=== PATIENT | male | born 1955 | race Caucasian/White ===

== ENCOUNTER 2019-04-25 17:04 | Inpatient (IN) ==
[2019-04-25] MEDS ORDERED: NITROGLYCERIN SL 0.4 MG/TAB TAB SL PRN ×2 (17:18→22:12)
[2019-04-25 17:29] LABS: Basophils # (auto) 0.03 K/uL (0-0.2); Basophils % (auto) 0.3 %; Eosinophils # (auto) 0.33 K/uL (0-0.5); Eosinophils % (auto) 3.7 %; Immature Granulocytes # (auto) 0.03 K/uL (0.00-0.02); Immature Granulocytes % (auto) 0.3 %; Lymphocytes # (auto) 2.09 K/uL (1.2-3.4); Lymphocytes % (auto) 23.3 %; Mean Corpuscular Hgb Conc 34.1 g/dL (32-36); Mean Corpuscular Volume 90.7 fL (80-100); Mean Platelet Volume 11.3 fL (7.4-10.4); Monocytes # (auto) 0.94 K/uL (0.11-0.59); Monocytes % (auto) 10.5 %; Neutrophils # (auto) 5.54 K/uL (1.4-6.5); Neutrophils % (auto) 61.9 %; Platelet Count 292 K/uL (130-400); RDW Coefficient of Variation 13.9 % (11.5-14.5); RDW Standard Deviation 46.1 fL (36.4-46.3); Red Blood Count 4.52 M/uL (4.7-6.1); White Blood Count 8.96 K/uL (4.8-10.8)
[2019-04-25 18:02] LABS: Alanine Aminotransferase 36 U/L (12-78); Albumin Globulin Ratio 1.1 (0.9-2); Alkaline Phosphatase 87 U/L (45-117); BUN Creatinine Ratio 9.8 (10-20); Bilirubin,Total 0.5 mg/dl (0.2-1); Blood Urea Nitrogen 13 mg/dl (7-18); Calcium 9.6 mg/dl (8.5-10.1); Carbon Dioxide 25 mmol/L (21-32); Chloride 106 mmol/L (98-107); Creatinine Clr Calc Pharmacy 70.6 ml/min; Est GFR (Non-African American) 57.8; Globulin 3.5 gm/dl (2.5-4.0); Glucose 106 mg/dl (70-99); Lipase 205 U/L (73-393); Total Protein 7.5 gm/dl (6.4-8.2); Troponin I < 0.015 ng/ml (0-0.045)
[2019-04-25 18:07] LABS: Potassium 4.4 mmol/L (3.5-5.1); Sodium 142 mmol/L (136-145)
[2019-04-25 18:13] LABS: Aspartate Aminotransferase 34 U/L (15-37)
--- NOTE | 2019-04-25 18:21 | XRay Report ---
SINGLE VIEW CHEST CLINICAL HISTORY: Atypical chest pain. FINDINGS: 2 AP, portable, upright chest radiographs are obtained. No prior studies are available for comparison at the time of dictation. The examination is degraded by portable technique, apical positi oning, and patient rotation. The heart is enlarged. The pulmonary vasculature is noncongested. There is a layering left pleural effusion with left basilar consolidation. The lungs are otherwise clear. N o pneumothorax is seen. The skeletal structures are osteopenic. The bony thorax is grossly intact. IMPRESSION: 1. Cardiomegaly without radiographic evidence of congestive failure. 2. Left pleural effusion with left basilar consolidation. Electronically signed by: Wesley Lee M.D. 04/25/2019 6:20 PM
[2019-04-25 20:01] LABS: Troponin I 0.211 ng/ml (0-0.045)
[2019-04-25] MEDS ORDERED: Heparin IV Standard *NO* Bolus IV ONE (20:03)
[2019-04-25] MEDS ORDERED: HEPARIN SODIUM/DEXTROSE 25,000 UNITS/500 ML BAG IV SCH (20:15)
[2019-04-25] MEDS ORDERED: HEPARIN SOD 5,000 UNIT/0.5 ML VIAL ONE (20:36)
[2019-04-25] MEDS: HEPARIN SODIUM/DEXTROSE 25,000 UNITS/500 ML BAG IV SCH (20:42)
[2019-04-25 20:45] LABS: Partial Thromboplastin Ratio 0.9; Partial Thromboplastin Time 23.1 Seconds (21.0-31.0); Prothrombin Time 10.4 Seconds (9.0-12.0)
[2019-04-25 20:48] LABS: Magnesium 2.2 mg/dl (1.8-2.4)
--- NOTE | 2019-04-25 21:14 | History & Physical Report ---
Date of Service April 25, 2019 Assessment & Plan (1) Non-ST elevation PA (NSTEMI): hx CAD status post stent (2001, 2012) Inability to take home Plavix the last month due to insurance concerns. hypertension, stable Patient does not recall being on any medications although outpatient [facility] records documents indicate patient being on Atenolol and Prinivil in the past. hyperlipidemia on statin Rx history PUD, stable past tobacco abuse PCU Aspirin, continue IV heparin started at the ER Hold Plavix until patient seen by Cardiology. Initiate beta-anastacia Follow troponin, TTE RE ACS Obtain records from [facility] DVT prophylaxis IV heparin Full code History of Present Illness Chief Complaint: Chest pain Primary Care Provider: Dr. Luis Ashton History obtained from patient, family, and records. Medical history significant for CAD status post stenting (2000, 2012), hypertension, hyperlipidemia, history PUD, past tobacco abuse. 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 No radiation, no S OB. Some nausea. Unable to take Plavix and cholesterol prescription the last month due to insurance issues. Patient however taking aspirin daily. No relief of chest pain with nitroglycerin intake at home. Subsequent relief with aspirin administration by EMS. Medical History as above Surgical History : Tonsillectomy Family History : Heart disease Personal/Social history : Past tobacco abuse, no EtOH intake, retired [employer] employee Allergies Allergy/AdvReac Type Severity Reaction Status Date / Time morphine AdvReac Severe mood Verified 04/25/19 18:48 change, makes mean lisinopril AdvReac Intermediate Cough Verified 04/25/19 22:19 UNKNOWN BP PILL AdvReac Severe Cough Uncoded 04/25/19 22:19 Home Medications Home Medications Medication Instructions Recorded Confirmed Type levothyroxine 25 mcg PO DAILY 04/25/19 04/25/19 History Past Med/Surg History Medical History No significant past medical history Social History Preferred Language: Estonian Communication Ability: Effective 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 Beliefs That Will Affect Care: None Current Living Situation: Significant Other Other Information That Helps Us Care for You: No Feels Safe at Home: Yes Safety Concerns: Feels Safe At This Time Smoking Status: Former smoker Do You Dip or Chew Tobacco: No ; Hx Alcohol Use: Yes Alcohol type: beer and wine Hx Substance Use: No Review of Systems Review of Systems: As per HPI, all 10 systems reviewed, all other ROS negative Physical Exam Physical Exam: GENERAL: Comfortable, slightly anxious, obese, no respiratory distress SKIN: Normal color, warm HEENT: Alopecia, Archer palpebral conjunctivae, no ptosis, moist buccal mucosa NECK : Supple, no tenderness CHEST : CTA, no tenderness HEART : RRR, no obvious murmurs ABDOMEN: Some distention, nontender EXTREMITIES : No LE swelling/tenderness, no other conspicuous deformities noted NEUROLOGIC : Coherent, no facial asymmetry, no other gross focality Results & Data Vital Signs (Past 12 Hours) Vital Signs Temp Pulse Pulse Resp BP BP Pulse Ox 04/25/19 20:50 62 16 137/85 96 04/25/19 18:54 61 16 125/83 97 04/25/19 17:22 95 04/25/19 17:14 37 C 65 16 131/82 95 Laboratory Results Laboratory Results WBC 8.96 K/uL (4.8-10.8) 04/25/19 17:08 RBC 4.52 M/uL (4.7-6.1) L 04/25/19 17:08 Hgb 14.0 g/dL (14.0-18.0) 04/25/19 17:08 Hct 41.0 % (42-52) L 04/25/19 17:08 MCV 90.7 fL (80-100) 04/25/19 17:08 MCH 31.0 pg (25-34) 04/25/19 17:08 MCHC 34.1 g/dL (32-36) 04/25/19 17:08 RDW Std Deviation 46.1 fL (36.4-46.3) 04/25/19 17:08 RDW Coeff of Nitish 13.9 % (11.5-14.5) 04/25/19 17:08 Plt Count 292 K/uL (130-400) 04/25/19 17:08 MPV 11.3 fL (7.4-10.4) H 04/25/19 17:08 Immature Gran % (Auto) 0.3 % 04/25/19 17:08 Neut % (Auto) 61.9 % 04/25/19 17:08 Lymph % (Auto) 23.3 % 04/25/19 17:08 Christian % (Auto) 10.5 % 04/25/19 17:08 Eos % (Auto) 3.7 % 04/25/19 17:08 Baso % (Auto) 0.3 % 04/25/19 17:08 Immature Gran # (Auto) 0.03 K/uL (0.00-0.02) H 04/25/19 17:08 Neut # (Auto) 5.54 K/uL (1.4-6.5) 04/25/19 17:08 Lymph # (Auto) 2.09 K/uL (1.2-3.4) 04/25/19 17:08 Christian # (Auto) 0.94 K/uL (0.11-0.59) H 04/25/19 17:08 Eos # (Auto) 0.33 K/uL (0-0.5) 04/25/19 17:08 Baso # (Auto) 0.03 K/uL (0-0.2) 04/25/19 17:08 PT 10.4 Seconds (9.0-12.0) 04/25/19 20:18 INR 1.0 (0.9-1.1) 04/25/19 20:18 APTT 23.1 Seconds (21.0-31.0) 04/25/19 20:18 PTT Ratio 0.9 04/25/19 20:18 Sodium 142 mmol/L (136-145) 04/25/19 17:08 Potassium 4.4 mmol/L (3.5-5.1) 04/25/19 17:08 Chloride 106 mmol/L (98-107) 04/25/19 17:08 Carbon Dioxide 25 mmol/L (21-32) 04/25/19 17:08 Anion Gap 10.0 (3-11) 04/25/19 17:08 BUN 13 mg/dl (7-18) 04/25/19 17:08 Creatinine 1.29 mg/dl (0.6-1.4) 04/25/19 17:08 Est Cr Clr Drug Dosing 70.6 ml/min 04/25/19 17:08 Est GFR ( Amer) 67.0 04/25/19 17:08 Est GFR (Non-Af Amer) 57.8 04/25/19 17:08 BUN/Creatinine Ratio 9.8 (10-20) L 04/25/19 17:08 Glucose 106 mg/dl (70-99) H 04/25/19 17:08 Calcium 9.6 mg/dl (8.5-10.1) 04/25/19 17:08 Magnesium 2.2 mg/dl (1.8-2.4) 04/25/19 19:03 Total Bilirubin 0.5 mg/dl (0.2-1) 04/25/19 17:08 AST 34 U/L (15-37) 04/25/19 17:08 ALT 36 U/L (12-78) 04/25/19 17:08 Alkaline Phosphatase 87 U/L (45-117) 04/25/19 17:08 Troponin I 0.211 ng/ml (0-0.045) H* 04/25/19 19:03 Total Protein 7.5 gm/dl (6.4-8.2) 04/25/19 17:08 Albumin 4.0 gm/dl (3.4-5.0) 04/25/19 17:08 Globulin 3.5 gm/dl (2.5-4.0) 04/25/19 17:08 Albumin/Globulin Ratio 1.1 (0.9-2) 04/25/19 17:08 Lipase 205 U/L (73-393) 04/25/19 17:08 Diagnostic Findings Chest x-ray : 1. Cardiomegaly without radiographic evidence of congestive failure. 2. Left pleural effusion with left basilar consolidation. EKG as per my interpretation :Rate 65, NSR, normal axis, T wave inversion flattening inferior leads
[2019-04-25] MEDS: METOPROLOL TARTRATE 25 MG TAB PO SCH (21:23)
[2019-04-25] MEDS ORDERED: ACETAMINOPHEN 325 MG TAB PO PRN (22:12)
[2019-04-25] MEDS ORDERED: LORazepam 0.25 MG/0.5 ML VIAL IV PRN (22:12)
[2019-04-25] MEDS ORDERED: HYDROmorphone INJ 0.5 MG/0.5 ML SYR IV PRN (22:12)
[2019-04-25] MEDS ORDERED: PROMETHAZINE HCL 12.5 MG in SODIUM CHLORIDE 0.9% 50 ML IV PRN (22:12)
[2019-04-25 22:43] LABS: Thyroid Stimulating Hormone 6.32 uIu/ml (0.300-4.500)
--- NOTE | 2019-04-25 23:14 | Emergency Department Note ---
Entered by Mone Mortensen acting as a scribe for Ludwig Rosas MD History of Present Illness General Chief complaint: Chest Pain Time Seen by Provider: 04/25/19 17:08 Source: patient and family Mode of arrival: EMS History of Present Illness Provider complaint: chest pain Onset (ago): hour(s) 3 Location: chest Radiation: non-radiation Pain Consistency: + constant Relieved By: + medication (aspirin) Associated symptoms: + nausea/vomiting (+nausea, -vomiting); no cough and no fever/chills Treatments prior to arrival: aspirin and other (NTG) The patient is a 64 male w/ No significant PMHx who presents to the ED w/ CC of chest pain beginning 3 hours ago. 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 He reports that this was constant pain that was located in the center of his chest. He states that the pain was non-radiating. He states that he took nitroglycerine and it did not alleviate his symptoms. He states that he was given baby aspirin on arrival, which resolved his pain. The patient denies any cough or fever. He states that he had nausea, but denies any vomiting. He denies any recent trauma to his chest. He states that he has a history of stents in place. He reports that his takes Plavix. He denies any history of blood clots. The patients daughter mentions that the patient was seen at [facility] last week and they reported that his heart was enlarged on the left side. 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 and A total of 10 systems reviewed and were otherwise negative Physical Exam Vital Signs Vital Signs - 24 hr 04/25/19 17:14 04/25/19 17:22 04/25/19 18:54 Temperature 37 C Temperature Source Oral Sepsis Recent Fever Within 48 Hours No Sepsis New/Unexplained Change in Mental Status No Sepsis Action Taken by Nursing No Action Required Pulse Rate 65 Pulse Rate [Apical] 61 Pulse Rhythm [Apical] Pulse Strength [Apical] Respiratory Rate 16 16 Respiratory Effort / Characteristics Respiratory Depth Blood Pressure 131/82 Blood Pressure [Left Arm] 125/83 Blood Pressure Mean 98 Blood Pressure Mean [Left Arm] 97 Pulse Oximetry 95 95 97 Oxygen Delivery Method Room Air Room Air Room Air 04/25/19 20:50 Temperature Temperature Source Sepsis Recent Fever Within 48 Hours Sepsis New/Unexplained Change in Mental Status Sepsis Action Taken by Nursing Pulse Rate Pulse Rate [Apical] 62 Pulse Rhythm [Apical] Regular Pulse Strength [Apical] Normal Respiratory Rate 16 Respiratory Effort / Characteristics Non-Labored Spontaneous Respiratory Depth Normal Blood Pressure Blood Pressure [Left Arm] 137/85 Blood Pressure Mean Blood Pressure Mean [Left Arm] 102 Pulse Oximetry 96 Oxygen Delivery Method Room Air GENERAL: Wearing glasses, well appearing, well nourished, NAD, non-toxic. EYE EXAM: Normal conjunctiva. PERRL, no anisocoria and EOM's grossly intact w/o pain. OROPHARYNX: Moist mucous membranes. Grossly normal dentition. NECK: Supple, no nuchal rigidity, no adenopathy, non-tender. No signs of meningismus. LUNGS: Clear to auscultation. Normal chest wall mechanics. HEART: NSR, no MRG. ABDOMEN: Abdomen soft, non-tender, normo-active bowel sounds, no masses, no rebound or guarding. BACK: No CVA TTP. SKIN: No rashes and no bruising. UPPER EXTREMITIES: Upper extremities are grossly normal. LOWER EXTREMITIES: Negative Catia's sign. No pitting edema. No calf pain. NEURO EXAM: A&O x3, cranial nerves II-XII grossly intact, normal speech, moves all 4 extremities on command w/o issue. Course 1713: The patient was evaluated in room A12B, and a complete history and physical examination were performed. 2005: [facility] He will evaluate the patient for further management. Administered Medications Heparin Sodium/Dextrose (Heparin Sodium/Dextrose) 25,000 units in 500 mls @ 32 mls/hr IV .[id number] YANI; Protocol Stop: 05/25/19 20:14 Last Admin: 04/25/19 20:42 Dose: 1,550 units/hr, 31 mls/hr Documented by: [id number] Cosigned by: [id number] Metoprolol Tartrate (Lopressor) 12.5 mg PO BID YANI Stop: 05/25/19 20:14 Last Admin: 04/25/19 21:23 Dose: 12.5 mg Documented by: [id number] Discontinued Medications Heparin Sodium (Porcine) (Heparin Sodium (Porcine)) Confirm Administered Dose 5,000 units .ROUTE .[facility] Stop: 04/25/19 20:37 Last Admin: 04/25/19 20:42 Dose: 5,000 units Documented by: [id number] Cosigned by: [id number] Heparin Sodium/Dextrose () 1 ea IV ONE ONE; Protocol Stop: 04/25/19 20:04 Last Admin: 04/25/19 20:41 Dose: Not Given Documented by: [id number] Heparin Sodium/Dextrose () 1 ea IV NOW STA; Protocol Stop: 04/25/19 20:12 Last Admin: 04/25/19 20:42 Dose: 1 ea Documented by: [id number] Medical Decision Making Differential Diagnosis Etiologies such as shingles, musculoskeletal pain, pericarditis, myocarditis, cardiac ischemia, pericardial tamponade, pneumonia, pneumothorax, pleural effusion, hemothorax, pleurisy, aortic pathology, pulmonary embolism, intra- abdominal process, as well as others were considered. Medical Records Attestation: I reviewed the patient's medical records. Home Medications Current Medication List: was personally reviewed by me Laboratory Data Attestation: I reviewed the patient's lab results. Result diagrams: 04/25/19 17:08 04/25/19 17:08 Lab Results 04/25/19 04/25/19 04/25/19 Range/Units 17:08 17:08 19:03 WBC 8.96 (4.8-10.8) K/uL RBC 4.52 L (4.7-6.1) M/uL Hgb 14.0 (14.0-18.0) g/dL Hct 41.0 L (42-52) % MCV 90.7 (80-100) fL MCH 31.0 (25-34) pg MCHC 34.1 (32-36) g/dL RDW Std Deviation 46.1 (36.4-46.3) fL RDW Coeff of Nitish 13.9 (11.5-14.5) % Plt Count 292 (130-400) K/uL MPV 11.3 H (7.4-10.4) fL Immature Gran % (Auto) 0.3 % Neut % (Auto) 61.9 % Lymph % (Auto) 23.3 % [place] % (Auto) 10.5 % Eos % (Auto) 3.7 % Baso % (Auto) 0.3 % Immature Gran # (Auto) 0.03 H (0.00-0.02) K/uL Neut # (Auto) 5.54 (1.4-6.5) K/uL Lymph # (Auto) 2.09 (1.2-3.4) K/uL [place] # (Auto) 0.94 H (0.11-0.59) K/uL Eos # (Auto) 0.33 (0-0.5) K/uL Baso # (Auto) 0.03 (0-0.2) K/uL PT (9.0-12.0) Seconds INR (0.9-1.1) APTT (21.0-31.0) Seconds PTT Ratio Sodium 142 (136-145) mmol/L Potassium 4.4 (3.5-5.1) mmol/L Chloride 106 (98-107) mmol/L Carbon Dioxide 25 (21-32) mmol/L Anion Gap 10.0 (3-11) BUN 13 (7-18) mg/dl Creatinine 1.29 (0.6-1.4) mg/dl Est Cr Clr Drug Dosing 70.6 ml/min Est GFR ( Amer) 67.0 Est GFR (Non-Af Amer) 57.8 BUN/Creatinine Ratio 9.8 L (10-20) Glucose 106 H (70-99) mg/dl Calcium 9.6 (8.5-10.1) mg/dl Magnesium 2.2 (1.8-2.4) mg/dl Total Bilirubin 0.5 (0.2-1) mg/dl AST 34 (15-37) U/L ALT 36 (12-78) U/L Alkaline Phosphatase 87 (45-117) U/L Troponin I < 0.015 0.211 H* (0-0.045) ng/ml Total Protein 7.5 (6.4-8.2) gm/dl Albumin 4.0 (3.4-5.0) gm/dl Globulin 3.5 (2.5-4.0) gm/dl Albumin/Globulin Ratio 1.1 (0.9-2) Lipase 205 (73-393) U/L TSH 6.320 H (0.300-4.500) uIu/ml 04/25/19 Range/Units 20:18 WBC (4.8-10.8) K/uL RBC (4.7-6.1) M/uL Hgb (14.0-18.0) g/dL Hct (42-52) % MCV (80-100) fL MCH (25-34) pg MCHC (32-36) g/dL RDW Std Deviation (36.4-46.3) fL RDW Coeff of Nitish (11.5-14.5) % Plt Count (130-400) K/uL MPV (7.4-10.4) fL Immature Gran % (Auto) % Neut % (Auto) % Lymph % (Auto) % [place] % (Auto) % Eos % (Auto) % Baso % (Auto) % Immature Gran # (Auto) (0.00-0.02) K/uL Neut # (Auto) (1.4-6.5) K/uL Lymph # (Auto) (1.2-3.4) K/uL [place] # (Auto) (0.11-0.59) K/uL Eos # (Auto) (0-0.5) K/uL Baso # (Auto) (0-0.2) K/uL PT 10.4 (9.0-12.0) Seconds INR 1.0 (0.9-1.1) APTT 23.1 (21.0-31.0) Seconds PTT Ratio 0.9 Sodium (136-145) mmol/L Potassium (3.5-5.1) mmol/L Chloride (98-107) mmol/L Carbon Dioxide (21-32) mmol/L Anion Gap (3-11) BUN (7-18) mg/dl Creatinine (0.6-1.4) mg/dl Est Cr Clr Drug Dosing ml/min Est GFR ( Amer) Est GFR (Non-Af Amer) BUN/Creatinine Ratio (10-20) Glucose (70-99) mg/dl Calcium (8.5-10.1) mg/dl Magnesium (1.8-2.4) mg/dl Total Bilirubin (0.2-1) mg/dl AST (15-37) U/L ALT (12-78) U/L Alkaline Phosphatase (45-117) U/L Troponin I (0-0.045) ng/ml Total Protein (6.4-8.2) gm/dl Albumin (3.4-5.0) gm/dl Globulin (2.5-4.0) gm/dl Albumin/Globulin Ratio (0.9-2) Lipase (73-393) U/L TSH (0.300-4.500) uIu/ml Imaging Data Radiologist's Impression: Radiology results as stated below per my review and the radiologist's interpretation: SINGLE VIEW CHEST CLINICAL HISTORY: Atypical chest pain. FINDINGS: 2 AP, portable, upright chest radiographs are obtained. No prior studies are available for comparison at the time of dictation. The examination i s degraded by portable technique, apical positioning, and patient rotation. The heart is enlarged. The pulmonary vasculature is noncongested. There is a layering left pleural effusion with left basilar consolidation. The lungs are otherwise clear. No pneumothorax is seen. The skeletal structures are osteopenic. The bony thorax is grossly intact. IMPRESSION: 1. Cardiomegaly without radiographic evidence of congestive failure. 2. Left pleural effusion with left basilar consolidation. Electronically signed by: Wesley Lee M.D. 04/25/2019 6:20 PM ECG Data Attestation: I personally reviewed and interpreted this ECG as follows: Indication: chest pain Rate (beats per minute): 67 Rhythm: normal sinus Findings: + other (normal interval and axis) and + Q waves (lead 3 with TWI ) Blood Pressure Blood Pressure Findings: Normal blood pressure Blood Pressure Disposition: did not require urgent referral MDM Narrative Patient was seen and evaluated the bedside. Patient does have a known history of NV status post multiple cardiac stents and does follow in [facility]. The patient has not been taking his dual antiplatelet therapy for approximately 1 month as the patient does not have medication coverage. The patient did complain of some substernal chest discomfort with some associated nausea. The patient was unable to say whether not it was exertional. The patient did a blo od complete along with an EKG troponin chest x-ray. Symptoms began around 230 pm. Patient's EKG does not show any evidence of acute ischemia. No prior to compare to. Patient does have a Q wave and T WI lead III but not in contiguous leads. Patient's initial troponin negative. The patient did have a repeat troponin and the patient subsequently was shown to have an elevated troponin. Observation: Patient has PMX of CAD s/p stents . Observation began at 1713 and was necessary in order to monitor, reassess and mitigate the risk of the patient, ensure their relative safety, and potentially avoid an admission. Upon re-evaluation, observation revealed that the patient could not be safely discharged at this time after repeat troponin was elevated at 1903. Patient was chest pain free, heparin ordered. Patient was chest pain-free heparin was ordered. The patient already received full dose aspirin had no further chest pain. Given the lack of active chest pain or EKG changes medical management at this time I did discuss with the patient that if he does develop worsening chest pain he should inform someone for repeat EKG. I did speak with the on-call hospitalist who agreed to further evaluate treat the patient. Patient was admitted to the medicine service. Impression & Plan Non-ST elevation NV (NSTEMI), Chest pain Critical Care Time Critical Care Time: Yes Total Critical Care Time: 45 I have personally spent 45 minutes of critical care time in the direct management of this patient. This includes bedside care, interpretation of diagnostic studies, and testing, discussion with consultants, patient, and family members, and other required patient management activities. This 45 minutes is in excess of all separately billable procedures. Discharge Plan Visit Data *Final* Discharge Date/Time: 04/25/19 21:40 Chief Complaint: Chest Pain ED Provider: Luwdig Rosas Discharge Problem: Non-ST elevation NV (NSTEMI), Chest pain Patient Disposition: Admitted As Inpatient Discharge Instructions Interventions: ED Discharge Assessment Last Done: 04/25/19 21:40 Discharge Problem: Chest pain Qualifiers: Chest pain type: unspecified Qualified Code(s): R07.9 - Chest pain, unspecified The scribe's documentation has been prepared under my direction and personally reviewed by me in its entirety. I confirm that the note above accurately reflects all work, treatment, procedures, and medical decision making performed by me.
[2019-04-26] MEDS ORDERED: SODIUM CHLORIDE 0.45 % 1,000 ML IV SCH
[2019-04-26 03:22] LABS: Basophils # (auto) 0.04 K/uL (0-0.2); Basophils % (auto) 0.5 %; Eosinophils # (auto) 0.35 K/uL (0-0.5); Eosinophils % (auto) 4.5 %; Hematocrit (blood only) 39.4 % (42-52); Hemoglobin 13.4 g/dL (14.0-18.0); Immature Granulocytes # (auto) 0.03 K/uL (0.00-0.02); Immature Granulocytes % (auto) 0.4 %; Lymphocytes # (auto) 3.21 K/uL (1.2-3.4); Lymphocytes % (auto) 40.9 %; Mean Corpuscular Hemoglobin 31.5 pg (25-34); Mean Corpuscular Volume 92.7 fL (80-100); Mean Platelet Volume 10.8 fL (7.4-10.4); Monocytes # (auto) 0.95 K/uL (0.11-0.59); Monocytes % (auto) 12.1 %; Neutrophils # (auto) 3.26 K/uL (1.4-6.5); Neutrophils % (auto) 41.6 %; Platelet Count 246 K/uL (130-400); Red Blood Count 4.25 M/uL (4.7-6.1); White Blood Count 7.84 K/uL (4.8-10.8)
[2019-04-26 03:31] LABS: Partial Thromboplastin Time 26.3 Seconds (21.0-31.0)
[2019-04-26 03:39] LABS: BUN Creatinine Ratio 12.2 (10-20); Calcium 9.1 mg/dl (8.5-10.1); Creatinine Clr Calc Pharmacy 79.5 ml/min; Est GFR (African American) 76.2; Est GFR (Non-African American) 65.7; Potassium 3.9 mmol/L (3.5-5.1)
[2019-04-26 03:44] LABS: Troponin I 1.38 ng/ml (0-0.045)
[2019-04-26] MEDS ORDERED: HEPARIN IV BOLUS 7,000 UNITS in SYRINGE 0 ML IV ONE (04:00)
[2019-04-26 04:31] LABS: T4 Free Thyroxine 0.76 ng/dl (0.8-1.6)
[2019-04-26] MEDS ORDERED: LEVOTHYROXINE SODIUM 25 MCG TABLET PO SCH (06:30)
[2019-04-26] MEDS ORDERED: PERFLUTREN LIPID MICROSPHERE (DEFINITY) IV ONE (07:14)
[2019-04-26] MEDS ORDERED: ATORVASTATIN 40 MG TAB PO SCH (09:00)
[2019-04-26] MEDS ORDERED: ASPIRIN 325 MG ECTAB PO SCH (09:00)
--- NOTE | 2019-04-26 09:54 | Cardiology Consultation ---
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 He is agreeable. Continue intravenous heparin, aspirin, and statin therapy. Patient was not prescribed beta-anastacia therapy due to resting sinus bradycardia. He is currently pain-free. Further recommendations pending results of cardiac catheterization. History of Present Illness Reason for Consultation: NSTEMI Requesting Physician: Dr. Anderson Attending Physician: Alexis Anderson MD History of Present Illness 64-year-old patient presents emergency department with episode of substernal chest pain. Describes pain similar to prior myocardial infarction occurring in 1999. Discomfort lasted for nearly 30 minutes. He took 2 sublingual nitroglycerin without relief. EMS was summoned and he received 4 baby aspirin in route. Pain-free upon arrival to the emergency department. Intravenous heparin initiated. Resting 2D transthoracic echocardiogram demonstrates old inferior posterior infarction with preserved LV systolic function. Patient currently pain-free. Denies orthopnea, PND, lower extremity edema. No palpitations, lightheadedness, dizziness, syncope, or near syncope. Admits to insurance problems leading to noncompliance with medications over the past 4 weeks. Typically take aspirin, Plavix, statin therapy on a daily basis. Allergies Allergy/AdvReac Type Severity Reaction Status Date / Time morphine AdvReac Severe mood Verified 04/25/19 18:48 change, makes mean lisinopril AdvReac Intermediate Cough Verified 04/25/19 22:19 UNKNOWN BP PILL AdvReac Severe Cough Uncoded 04/25/19 22:19 Home Medications Home Medications Medication Instructions Recorded Confirmed Type levothyroxine 25 mcg PO DAILY 04/25/19 04/25/19 History aspirin 81 mg PO DAILY 04/26/19 04/26/19 History Patient History Medical History Dyslipidemia, goal LDL below 70 Hypothyroid No significant past medical history Old MT (myocardial infarction) Surgical History S/P coronary artery stent placement Social History (Reviewed 04/26/19 @ 09:56 by BABITA Rincon Preferred Language: Turkmen Communication Ability: Effective Disulfurizer Tender Required: No Beliefs That Will Affect Care: None Current Living Situation: Significant Other Other Information That Helps Us Care for You: No Feels Safe at Home: Yes Safety Concerns: Feels Safe At This Time Smoking Status: Former smoker Do You Dip or Chew Tobacco: No ; Hx Alcohol Use: Yes Alcohol type: beer and wine Hx Substance Use: No Review of Systems Review of Systems: All systems reviewed & are unremarkable except as noted in HPI & below Physical Exam Physical Exam: General: NAD, AAO x3, well nourished. Obese. HEENT: Normocephalic. Atraumatic. Conjunctiva pink, no scleral icterus. Neck: No carotid bruits, the carotid upstrokes are brisk. No JVD. No HJR Heart: Regular normal S-1 and S-2 no S-3 or S-4 gallop. No murmurs or rub appreciated. PMI is not displaced. No RV heave. Lungs: Clear bilateral without rales , rhonchi, or wheeze. Abdomen: Normal bowel sounds. Soft. Nontender. No masses or organomegaly. No abdominal bruits. Extremities: No clubbing, cyanosis, or edema. Pulses: radial=2/4, Dorsalis pedis =2/4, posterior tibial=2/4. Neuro: Cranial nerves grossly intact. No focal motor deficit. Results & Data Vital Signs (Past 12 Hours) Vital Signs Temp Pulse Pulse Pulse Resp BP BP 04/26/19 07:20 36.5 C 65 18 134/83 04/26/19 04:08 36.7 C 57 L 14 113/67 04/25/19 23:36 36.5 C 58 L 18 137/79 04/25/19 22:20 61 04/25/19 22:00 36.6 C 56 L 16 154/94 H Pulse Ox 04/26/19 07:20 95 04/26/19 04:08 96 04/25/19 23:36 94 04/25/19 22:20 04/25/19 22:00 97 Laboratory Results Laboratory Results - last 24 hr 04/25/19 04/25/19 04/25/19 17:00 17:08 17:08 WBC 8.96 RBC 4.52 L Hgb 14.0 Hct 41.0 L MCV 90.7 MCH 31.0 MCHC 34.1 RDW Std Deviation 46.1 RDW Coeff of Nitish 13.9 Plt Count 292 MPV 11.3 H Immature Gran % (Auto) 0.3 Neut % (Auto) 61.9 Lymph % (Auto) 23.3 [place] % (Auto) 10.5 Eos % (Auto) 3.7 Baso % (Auto) 0.3 Immature Gran # (Auto) 0.03 H Neut # (Auto) 5.54 Lymph # (Auto) 2.09 [place] # (Auto) 0.94 H Eos # (Auto) 0.33 Baso # (Auto) 0.03 PT INR APTT PTT Ratio Sodium 142 Potassium 4.4 Chloride 106 Carbon Dioxide 25 Anion Gap 10.0 BUN 13 Creatinine 1.29 Est Cr Clr Drug Dosing 70.6 Est GFR ( Amer) 67.0 Est GFR (Non-Af Amer) 57.8 BUN/Creatinine Ratio 9.8 L Glucose 106 H Calcium 9.6 Magnesium Total Bilirubin 0.5 AST 34 ALT 36 Alkaline Phosphatase 87 Troponin I < 0.015 Total Protein 7.5 Albumin 4.0 Globulin 3.5 Albumin/Globulin Ratio 1.1 Triglycerides Cholesterol LDL Cholesterol, Calc VLDL Cholesterol, Calc HDL Cholesterol Cholesterol/HDL Ratio Lipase 205 TSH Free T4 Total T3 1.29 04/25/19 04/25/19 04/26/19 19:03 20:18 02:57 WBC 7.84 RBC 4.25 L Hgb 13.4 L Hct 39.4 L MCV 92.7 MCH 31.5 MCHC 34.0 RDW Std Deviation 48.0 H RDW Coeff of Nitish 14.0 Plt Count 246 MPV 10.8 H Immature Gran % (Auto) 0.4 Neut % (Auto) 41.6 Lymph % (Auto) 40.9 [place] % (Auto) 12.1 Eos % (Auto) 4.5 Baso % (Auto) 0.5 Immature Gran # (Auto) 0.03 H Neut # (Auto) 3.26 Lymph # (Auto) 3.21 [place] # (Auto) 0.95 H Eos # (Auto) 0.35 Baso # (Auto) 0.04 PT 10.4 INR 1.0 APTT 23.1 PTT Ratio 0.9 Sodium Potassium Chloride Carbon Dioxide Anion Gap BUN Creatinine Est Cr Clr Drug Dosing Est GFR ( Amer) Est GFR (Non-Af Amer) BUN/Creatinine Ratio Glucose Calcium Magnesium 2.2 Total Bilirubin AST ALT Alkaline Phosphatase Troponin I 0.211 H* Total Protein Albumin Globulin Albumin/Globulin Ratio Triglycerides Cholesterol LDL Cholesterol, Calc VLDL Cholesterol, Calc HDL Cholesterol Cholesterol/HDL Ratio Lipase TSH 6.320 H Free T4 Total T3 04/26/19 04/26/19 02:57 02:57 WBC RBC Hgb Hct MCV MCH MCHC RDW Std Deviation RDW Coeff of Nitish Plt Count MPV Immature Gran % (Auto) Neut % (Auto) Lymph % (Auto) [place] % (Auto) Eos % (Auto) Baso % (Auto) Immature Gran # (Auto) Neut # (Auto) Lymph # (Auto) [place] # (Auto) Eos # (Auto) Baso # (Auto) PT INR APTT 26.3 PTT Ratio 1.0 Sodium 144 Potassium 3.9 Chloride 107 Carbon Dioxide 30 Anion Gap 7.0 BUN 14 Creatinine 1.16 Est Cr Clr Drug Dosing 79.5 Est GFR ( Amer) 76.2 Est GFR (Non-Af Amer) 65.7 BUN/Creatinine Ratio 12.2 Glucose 100 H Calcium 9.1 Magnesium Total Bilirubin AST ALT Alkaline Phosphatase Troponin I 1.380 H* Total Protein Albumin Globulin Albumin/Globulin Ratio Triglycerides 273 H Cholesterol 261 H LDL Cholesterol, Calc 168 VLDL Cholesterol, Calc 55 HDL Cholesterol 38 Cholesterol/HDL Ratio 7 Lipase TSH Free T4 0.76 L Total T3
[2019-04-26 10:35] LABS: Partial Thromboplastin Ratio 2.8
[2019-04-26 10:38] LABS: Partial Thromboplastin Time 74.8 Seconds (21.0-31.0)
[2019-04-26] MEDS: HEPARIN SODIUM/DEXTROSE 25,000 UNITS/500 ML BAG IV SCH (10:42)
[2019-04-26] MEDS ORDERED: ASPIRIN 81 MG ECTAB PO ONE (12:30)
[2019-04-26] MEDS: METOPROLOL TARTRATE 25 MG TAB PO SCH (12:53)
--- NOTE | 2019-04-26 13:39 | Hospitalist Progress Note ---
Date of Service April 26, 2019 Assessment & Plan (1) Non-ST elevation [place] (NSTEMI): NSTEMI H/O CAD S/P stent (2001, 2012) Admits to not taking home Plavix for about a month due to insurance issues ECHO: Ejection fraction 50 to 55%. The base posterior wall is thinned and akinetic. The base inferior wall is thin and akinetic. Grade 2 diastolic dysfunction. No significant valvular pathology Continue IV heparin, aspirin, statin for now Patient was not prescribed beta-anastacia secondary to sinus bradycardia Plan for cardiac catheterization today Appreciate cardiology input Abnormal chest x-ray CXR:Cardiomegaly without radiographic evidence of congestive failure. Left pleural effusion with left basilar consolidation. Denies any cough, shortness of breath Check procalcitonin--If elevated we will start on antibiotics Hypothyroidism Elevated TSH, low free T4 Started on 25 mg levothyroxine 1 week ago per patient Continue current dose of levothyroxine Needs repeat thyroid function tests in 6 to 8 weeks as outpatient Hypertension Stable ? was not Atenolol and Prinivil in the past Currently not on any medications Monitor Hyperlipidemia Continue Lipitor H/O PUD Past tobacco abuse No acute problems DVT Px: On IV heparin ggt Code Status Full code Disposition Expect to discharge home when stable Subjective Patient is seen and examined at bedside Chest pain completely resolved currently Denies any shortness of breath, dizziness, nausea, diaphoresis, abdominal pain On heparin GGT No bleeding issues Plan for cardiac catheterization today Family at bedside Review of Systems Review of Systems: All systems reviewed & are unremarkable except as noted in HPI & below Physical Exam Physical Exam: Physical Exam: Vitals signs as noted above General Appearance:Obese, no apparent distress Head: normocephalic, Atraumatic Eyes: normal inspection, EOMI Neck: supple, Trachea midline Respiratory/Chest: Normal breath sounds, CTA Cardiovascular: S1, S2, No murmur Abdomen/GI:Soft, Non tender, Bowel sounds present Extremities/Musculoskelatal:normal inspection, no edema Neurologic/Psych:AAOX3, grossly no focal neurological deficits Skin: normal color, warm Results & Data Vital Signs (Past 12 Hours) Vital Signs Temp Pulse Resp BP Pulse Ox 04/26/19 11:11 36.5 C 61 18 146/78 H 96 04/26/19 07:20 36.5 C 65 18 134/83 95 09/30/19 04:08 36.7 C 57 L 14 113/67 96 Laboratory Results Short CBC 04/25/19 04/26/19 Range/Units 17:08 02:57 WBC 8.96 7.84 (4.8-10.8) K/uL Hgb 14.0 13.4 L (14.0-18.0) g/dL Hct 41.0 L 39.4 L (42-52) % Plt Count 292 246 (130-400) K/uL BMP 04/25/19 04/26/19 17:08 02:57 Sodium 142 144 Potassium 4.4 3.9 Chloride 106 107 Carbon Dioxide 25 30 BUN 13 14 Creatinine 1.29 1.16 Glucose 106 H 100 H Calcium 9.6 9.1 Cardiac Enzymes 04/25/19 04/25/19 04/26/19 Range/Units 17:08 19:03 02:57 Troponin I < 0.015 0.211 H* 1.380 H* (0-0.045) ng/ml Liver Function 04/25/19 Range/Units 17:08 Total Bilirubin 0.5 (0.2-1) mg/dl AST 34 (15-37) U/L ALT 36 (12-78) U/L Alkaline Phosphatase 87 (45-117) U/L Albumin 4.0 (3.4-5.0) gm/dl
[2019-04-26] MEDS ORDERED: HEPARIN (PORCINE) 1000 UNIT/ML 10 ML (CATH LAB USE ONLY) ONE (14:58)
[2019-04-26] MEDS ORDERED: NiCARDipine HCL INJ 2.5 MG/ML 10 ML AMP ONE (14:58)
[2019-04-26] MEDS ORDERED: fentaNYL citrate 100 MCG/2 ML VIAL ONE (14:59)
[2019-04-26] MEDS ORDERED: NITROGLYCERIN/D5W 100MCG/ML 20ML SYR ONE (14:59)
[2019-04-26] MEDS ORDERED: MIDAZOLAM HCL 1 MG/ML 2ML VIAL ONE ×2 (14:59→16:04)
--- NOTE | 2019-04-26 15:32 | Pre Anesthesia Assessment ---
Date of Service April 26, 2019 Pre Sedation Assessment Vital Signs Temp Pulse Pulse Pulse Resp BP BP 04/26/19 11:11 36.5 C 61 18 04/26/19 07:20 36.5 C 65 18 04/26/19 04:08 36.7 C 57 L 14 04/25/19 23:36 36.5 C 58 L 18 04/25/19 22:20 61 04/25/19 22:00 36.6 C 56 L 16 154/94 H 04/25/19 21:26 59 L 16 132/78 04/25/19 20:50 62 16 137/85 04/25/19 18:54 61 16 125/83 04/25/19 17:22 04/25/19 17:14 37 C 65 16 131/82 BP Pulse Ox 04/26/19 11:11 146/78 H 96 04/26/19 07:20 134/83 95 04/26/19 04:08 113/67 96 04/25/19 23:36 137/79 94 04/25/19 22:20 04/25/19 22:00 97 04/25/19 21:26 94 04/25/19 20:50 96 04/25/19 18:54 97 04/25/19 17:22 95 04/25/19 17:14 95 Cardiovascular RRR, no murmur, no edema Respiratory normal respiratory effort, lungs clear to auscultation Pre-Sedation Airway Assessment Smoking Status: Former smoker Mallampati Class: II ASA: ASA4 Procedure Planning Contraindications for Sedation: none Current Medications Reviewed: Yes Notes The planned sedation has been discussed with the patient. Informed Consent was obtained. I have identified the patient, determined the appropriateness of sedation and have assessed the patient immediately prior to the procedure. All medicine(s) and interventions are by my order.
[2019-04-26] MEDS ORDERED: ADENOSINE IV SOLN 3 MG/ML 20 ML VIAL IV ONE (16:21)
--- NOTE | 2019-04-26 16:22 | Post Anesthesia Assessment ---
Date of Service April 26, 2019 Post Sedation Assessment Vital Signs Temp Pulse Pulse Pulse Resp BP BP 04/26/19 11:11 36.5 C 61 18 04/26/19 07:20 36.5 C 65 18 04/26/19 04:08 36.7 C 57 L 14 04/25/19 23:36 36.5 C 58 L 18 04/25/19 22:20 61 04/25/19 22:00 36.6 C 56 L 16 154/94 H 04/25/19 21:26 59 L 16 132/78 04/25/19 20:50 62 16 137/85 04/25/19 18:54 61 16 125/83 04/25/19 17:22 04/25/19 17:14 37 C 65 16 131/82 BP Pulse Ox 04/26/19 11:11 146/78 H 96 04/26/19 07:20 134/83 95 04/26/19 04:08 113/67 96 04/25/19 23:36 137/79 94 04/25/19 22:20 04/25/19 22:00 97 04/25/19 21:26 94 04/25/19 20:50 96 04/25/19 18:54 97 04/25/19 17:22 95 04/25/19 17:14 95 Recovery Score Activity: Moves 4 extremities Respiration: Deep Breath/Cough Circulation: +/-20% PreAnes Value Consciousness: Fully Awake Oxygen Saturation: > 92% On Room Air Post Sedation Plan On clinical assessment, the patient appears to have tolerated the sedation without complications. Patient is recovering as anticipated. Patient will continue to be monitored by nursing and may be discharged when sedation discharge criteria are met per below protocol. Upon Completions of procedure and additional 15 minutes continue every 5 minute vital signs and the P.A.R. score; then discharge to a Phase I or Fast Track to Phase II per the following guidelines: * Discharge Patient to appropriate Phase II area if PAR is 8 or greater or return to pre- procedure baseline. The post - procedure orders will be as directed. * If PAR score is less than 8 or not return to pre-procedure baseline then patient will follow Phase I monitoring till PAR is reached for Phase II. The Phase I may be done in procedure room or may call to secure a Phase I area. * If naloxone or flumazenil are used for reversal, hold in Phase I for continued monitoring from when last reversal dose was given for a minimum of 60 minutes or longer pending the nurse and/or physician discretion of patient condition before discharge to Phase II. Please call the Sedation Physician to re-evaluate and complete post-note for discharge to Phase II area. Do NOT discharge from procedure sedation or Phase 1 until post- sedation evaluation note is complete by procedure /sedation MD Sedation Discharge Instructions to be given to the patient at discharge to home.
--- NOTE | 2019-04-26 16:26 | Cardiac Catheterization ---
Cardiac Cath Procedure Full Procedure Date April 26, 2019 Pre-Procedure Diagnosis Pre-Procedure Diagnosis: Non STEMI AUC Score AUC Score: 8 Post-Procedure Diagnosis Post-Procedure Diagnosis: Severe CAD and Normal Intracardiac Pressures Procedure(s) Performed Procedure(s) Performed: Coronary Angiography and Left Heart Cath Director Of Research And Development Monroe Jones DO Sounding Device Operator(s) Leander MANAGER SPA Estimated Blood Loss Estimated Blood Loss: 8cc Medication(s) Medication(s): Fentanyl, Heparin, Nicardipine, Nitroglycerin and Versed Summary of Findings 90% proximal OM 50% mid LAD 80% proximal D1 60% proximal RCA diffuse in-stent restenosis Hemodynamics Rest Ao:: 101/68/84 Final Ao: 109/65/84 LV: 107/08/05 Recommendations Recommendations: Management Recommendatons (FFR LAD, if LAD is hemodynamically significant, refer for CABG. If FFR is negative - proceed with PCI of Lcx/OM) Specimens Specimens: None Radiation Exposure (mGy) 1720 Contrast (mls) 65 Fluids (cc crystalloids) Fluids (cc crystalloids): 70cc Nss Anesthesia Moderate sedation. Start 3:30PM. End 4:10PM. Sedation monitor: Showers RN Procedural Complication(s) None Disposition patient remained in cathlab for FFR +/- PCI I attest to the content of the Intraoperative Record and any orders documented therein. Any exceptions are noted below. ACC Data: Test And Research Reactor Operator Cardiac Status Clinical evaluation leading to the procedure CAD Presenation: Non STEMI Anginal Classification: CCS IV Heart Failure: No Cardiogenic Shock within 24 Hours: No Cardiac Arrest within 24 Hours: No Imaging Studies Past 6 Months: No Stress Studies Past 6 Months: No STEMI OR Non-STEMI Symptom Onset Date: 04/25/19 Symptom Onset Time: 17:31 Thrombolytics: No Coronary Anatomy Dominant: Right Left Main (% Stenosis): Normal LAD (% Stenosis): Proximal (patent stent with 20% ISR), Mid (60%) and Distal (patent stent, followed by diffuse 20%) D1 (% Stenosis): Proximal (10%) and Mid (20%) D2 (% Stenosis): Proximal (90%) OM1 (% Stenosis): Proximal (90%) RCA (% Stenosis): Proximal (60% diffuse in-stent restenosis), Mid (30% in-stent restenosis) and Distal (10%) R PDA (% Stenosis): Ostial (20%) and Mid (30%) R PL1 (% Stenosis): Mid (50%) R PL2 (% Stenosis): Mid (10%) Diagnostic Physicians Name: Monroe Jones DO Status: Urgent Closure Device Percutaneous Entry Location: Radial Closure Device: Mynx Recommendations: Management Recommendatons (FFR LAD, if LAD is hemodynamically significant, refer for CABG. If FFR is negative - proceed with PCI of Lcx/OM) Intraprocedure Events Significant Disection: No Perforation: No
--- NOTE | 2019-04-26 17:00 | Post Anesthesia Assessment ---
Date of Service April 26, 2019 Post Sedation Assessment Vital Signs Temp Pulse Pulse Pulse Resp BP BP 04/26/19 11:11 97.7 F 61 18 04/26/19 07:20 97.7 F 65 18 04/26/19 04:08 98.1 F 57 L 14 04/25/19 23:36 97.7 F 58 L 18 04/25/19 22:20 61 04/25/19 22:00 97.9 F 56 L 16 154/94 H 04/25/19 21:26 59 L 16 132/78 04/25/19 20:50 62 16 137/85 04/25/19 18:54 61 16 125/83 04/25/19 17:22 04/25/19 17:14 98.6 F 65 16 131/82 BP Pulse Ox 04/26/19 11:11 146/78 H 96 04/26/19 07:20 134/83 95 04/26/19 04:08 113/67 96 04/25/19 23:36 137/79 94 04/25/19 22:20 04/25/19 22:00 97 04/25/19 21:26 94 04/25/19 20:50 96 04/25/19 18:54 97 04/25/19 17:22 95 04/25/19 17:14 95 Recovery Score Activity: Moves 4 extremities Respiration: Deep Breath/Cough Circulation: +/-20% PreAnes Value Consciousness: Fully Awake Oxygen Saturation: > 92% On Room Air Discharge Sedation Level of Care: Fast Track Phase II Post Sedation Plan On clinical assessment, the patient appears to have tolerated the sedation without complications. Patient is recovering as anticipated. Patient will continue to be monitored by nursing and may be discharged when sedation discharge criteria are met per below protocol. Upon Completions of procedure and additional 15 minutes continue every 5 minute vital signs and the P.A.R. score; then discharge to a Phase I or Fast Track to Phase II per the following guidelines: * Discharge Patient to appropriate Phase II area if PAR is 8 or greater or return to pre- procedure baseline. The post - procedure orders will be as directed. * If PAR score is less than 8 or not return to pre-procedure baseline then patient will follow Phase I monitoring till PAR is reached for Phase II. The Phase I may be done in procedure room or may call to secure a Phase I area. * If naloxone or flumazenil are used for reversal, hold in Phase I for continued monitoring from when last reversal dose was given for a minimum of 60 minutes or longer pending the nurse and/or physician discretion of patient condition before discharge to Phase II. Please call the Sedation Physician to re-evaluate and complete post-note for discharge to Phase II area. Do NOT discharge from procedure sedation or Phase 1 until post- sedation evaluation note is complete by procedure /sedation MD Sedation Discharge Instructions to be given to the patient at discharge to home.
--- NOTE | 2019-04-26 17:07 | Cardiac Catheterization ---
ACC Data: Interlocking Pavement Installer Cardiac Status Clinical evaluation leading to the procedure CAD Presenation: Non STEMI Anginal Classification: CCS IV Heart Failure: No Cardiogenic Shock within 24 Hours: No Cardiac Arrest within 24 Hours: No Imaging Studies Past 6 Months: Yes Stress Studies Past 6 Months: No Diagnostic Physicians Name: Catracho Flanagan MD Status: Elective Closure Device Percutaneous Entry Location: Radial Closure Device: Radial Band Recommendations: CABG Intraprocedure Events Significant Disection: No Perforation: No Cardiac Cath Procedure Full Procedure Date April 26, 2019 Pre-Procedure Diagnosis Pre-Procedure Diagnosis: Non STEMI AUC Score AUC Score: 8 Post-Procedure Diagnosis Post-Procedure Diagnosis: Severe CAD and Normal Intracardiac Pressures Procedure(s) Performed Procedure(s) Performed: Coronary Angiography and Left Heart Cath Cathodic Protection Technician Catracho Flanagan MD Economics Professor(s) Mcneil CARLOS Estimated Blood Loss Estimated Blood Loss: 8cc Medication(s) Medication(s): Fentanyl, Heparin, Nicardipine, Nitroglycerin and Versed Summary of Findings 90% proximal OM 50% mid LAD 80% proximal D1 60% proximal RCA diffuse in-stent restenosis For full details of patient's coronary angiography please cath report dictated by Dr. Jones. Briefly, patient found to have multi-vessel disease including a 90 % stenosis involving the proximal OM and a moderate to severe stenosis in his mid LAD. Decision to proceed with FFR of LAD. FFR procedure Left main cannulated with EBU 3.5 guide BMW wire placed into distal vessel ACIST FFR catheter passed across mid LAD lesion Pd/Pa 0.87 FFR 0.70 Wire and catheter removed, no post procedure complications. Summary: 1. Severe multivessel disease including obstructive mid LAD disease by FFR (0.70). Recommendations: Further evaluation for possible CABG per Dr. Jones. Hemodynamics Rest Ao:: 110/69/81 Final Ao: 96/58/78 LV: 104/12 Recommendations Recommendations: CABG Specimens Specimens: None Radiation Exposure (mGy) 2273 Contrast (mls) 165 total Fluids (cc crystalloids) Fluids (cc crystalloids): 70cc Nss Drains Drains: none Anesthesia Moderate sedation. Procedural Complication(s) None Disposition PCU I attest to the content of the Intraoperative Record and any orders documented therein. Any exceptions are noted below.
[2019-04-26] MEDS ORDERED: SODIUM CHLORIDE 0.9% 1000ML 1,000 ML IV SCH (17:15)
--- NOTE | 2019-04-26 17:39 | Discharge Summary ---
Date of Service April 26, 2019 Admission HPI Per Admitting Provider History obtained from patient, family, and records. Medical history significant for CAD status post stenting (2000, 2012), hypertension, hyperlipidemia, history PUD, past tobacco abuse. 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 No radiation, no S OB. Some nausea. Unable to take Plavix and cholesterol prescription the last month due to insurance issues. Patient however taking aspirin daily. No relief of chest pain with nitroglycerin intake at home. Subsequent relief with aspirin administration by EMS. Medical History as above Surgical History : Tonsillectomy Family History : Heart disease Personal/Social history : Past tobacco abuse, no EtOH intake, retired [employer] Admission Exam Per Admitting Provider GENERAL: Comfortable, slightly anxious, obese, no respiratory distress SKIN: Normal color, warm HEENT: Alopecia, [place] palpebral conjunctivae, no ptosis, moist buccal mucosa NECK : Supple, no tenderness CHEST : CTA, no tenderness HEART : RRR, no obvious murmurs ABDOMEN: Some distention, nontender EXTREMITIES : No LE swelling/tenderness, no other conspicuous deformities noted NEUROLOGIC : Coherent, no facial asymmetry, no other gross focality Principal Diagnosis NSTEMI Multivessel Coronary Artery Disease--Needs CABG Discharge Data Allergies Allergy/AdvReac Type Severity Reaction Status Date / Time morphine AdvReac Severe mood Verified 04/25/19 18:48 change, makes mean lisinopril AdvReac Intermediate Cough Verified 04/25/19 22:19 UNKNOWN BP PILL AdvReac Severe Cough Uncoded 04/25/19 22:19 Consultations 04/25/19 20:08 ED Decision to Admit Stat 04/25/19 22:12 Consult Cardiology Routine 04/26/19 05:47 Consult Health Information Management Routine 04/26/19 09:14 HIM [Consult Health Information Management] Stat 04/26/19 09:59 Consult Cardiac Catheterization Routine Procedures Performed Operation Date: 04/26/19 14:00 Actual Procedures p Cath, Left with Cors and Vent - Monroe Jones DO s Cineradiography w/Routine Exam - Monroe Jones DO s Fraction Flow [place] SGL Ves - Leon Flanagan MD Ordered Studies 04/26/19 14:59 CL Cath Imgs for PACS use only Routine CXR: 1. Cardiomegaly without radiographic evidence of congestive failure. 2. Left pleural effusion with left basilar consolidation. Cardiac catheterization Summary of Findings 90% proximal OM 50% mid LAD 80% proximal D1 60% proximal RCA diffuse in-stent restenosis Hemodynamics Rest Ao:: 101/68/84 Final Ao: 109/65/84 LV: 107/9 Recommendations Recommendations: Management Recommendatons (FFR LAD, if LAD is hemodynamically significant, refer for CABG. If FFR is negative - proceed with PCI of Lcx/OM) Hospital Course (1) Non-ST elevation AK (NSTEMI): NSTEMI H/O CAD S/P stent (2001, 2012) Admits to not taking home Plavix for about a month due to insurance issues ECHO: Ejection fraction 50 to 55%. The base posterior wall is thinned and akinetic. The base inferior wall is thin and akinetic. Grade 2 diastolic dysfunction. No significant valvular pathology Continue IV heparin, aspirin, statin for now Patient was not prescribed beta-anastacia secondary to sinus bradycardia --S/P cardiac catheterization: Cardiac catheterization showed multivessel coronary artery disease. 90% proximal OM, 50% mid LAD, 80% proximal D1, 60% proximal RCA diffuse in-stent restenosis. Cardiology recommended transfer to tertiary care center for CABG. Dr. Sethi, cardiology at [facility] accepted the patient for further management. Patient is updated with his condition and agrees to be transferred to tertiary care hospital for further management. --Appreciate cardiology Help Abnormal chest x-ray CXR:Cardiomegaly without radiographic evidence of congestive failure. Left pleural effusion with left basilar consolidation. Denies any cough, shortness of breath Given normal procalcitonin--Will hold off on starting any antibiotics Hypothyroidism Elevated TSH, low free T4 Started on 25 mg levothyroxine 1 week ago per patient Continue current dose of levothyroxine Needs repeat thyroid function tests in 6 to 8 weeks as outpatient Hypertension Stable ? was not Atenolol and Prinivil in the past Currently not on any medications Monitor Hyperlipidemia Continue Lipitor H/O PUD Past tobacco abuse No acute problems DVT Px: On IV heparin ggt Code Status Full code Disposition Cardiac catheterization showed multivessel coronary artery disease. 90% proximal OM, 50% mid LAD, 80% proximal D1, 60% proximal RCA diffuse in-stent restenosis. Cardiology recommended transfer to tertiary care center for CABG. Dr. Sethi, cardiology at [facility] accepted the patient for further management. Patient is updated with his condition and agrees to be transferred to tertiary care hospital for further management. Total Time Total Time Spent Total Time Spent (In Minutes): 45 minutes Total Time Includes: Examination of the Patient, Discharge Planning, Medication Reconciliation, Communication With Other Providers and Other Discharge Plan Discharge Items Patient Disposition: Transfer Acute Care Hospital Reason For Visit: ACS Discharge Diagnosis: NSTEMI Multivessel coronary artery disease--needs CABG Activity: Per Instructions section Non-emergency contact: Primary Care Provider and Hand Bunch Maker Call non-emergency contact if: you have any medication questions, your symptoms worsen, your pain is not controlled, your pain is worsening, your pain is unusual for you, your pain is concerning for you and you have a fever Follow-up/Referrals: Luis Ashton [Primary Care Provider] - Diet: Heart Healthy Addtl Attending Provider Instructions: Follow-up with Dr. Sethi at [facility] for further management Seek immediate medical attention if your symptoms reoccur or worsen Pending Studies at Discharge: No Stand-Alone Forms: Call Back Authorization, [facility] Skilled Items Patient informed of condition?: Yes DNR: No Discharge Level of Care: Other Communicable Disease: No Discharge Prognosis: Stable Lines: Peripheral IV Urinary Catheter: No Medications and DC Order Prescriptions: New atorvastatin 40 mg Tablet 40 mg PO QAM 30 Days Qty: 30 RF: 0 Continued levothyroxine 25 mcg Tablet 25 mcg PO DAILY RF: 0 aspirin 81 mg Tablet,Delayed Release (Dr/Ec) 81 mg PO DAILY RF: 0 Discharge Orders: Discharge Order (Routine); Ordered 04/26/19 Ordered By: Alexis Anderson Admission Data Admit Date/Time: 04/25/19 21:20 Attending Provider: Alexis Anderson Admit Provider: Vivek Ryan Primary Care Provider: Luis Ashton Other Providers: Vivek Ryan ; Monroe Jones
[2019-04-26 19:27] VITALS: BP 132/81; TEMP 97.9; O2SAT 96
[2019-04-26 20:07] VITALS: PULSE 56
[2019-04-27] MEDS ORDERED: LEVOTHYROXINE SODIUM 25 MCG TABLET PO SCH ×2 (06:30)
[2019-04-27] MEDS ORDERED: ASPIRIN 81 MG ECTAB PO SCH (09:00)
== END 2019-04-26 19:45 | disposition short-term general hospital (02) | DRG 281 ==
LOC: ED 17:04 → 2S 21:20

== ENCOUNTER 2024-05-04 20:19 | Inpatient (IN) ==
[2024-05-04] MEDS: diphenhydrAMINE 50 MG/ML VIAL IV STA (21:15)
[2024-05-04] MEDS: METOCLOPRAMIDE HCL INJ 5 MG/ML 2 ML VIAL IV ONE (21:15)
[2024-05-04 21:21] LABS: Base Excess VBG 3.3 mEq/L; HCO3 VBG 29 mmol/L; Oxygen Saturation VBG < 60.0 %; PCO2 VBG 48 mmHg (38-50); PO2 VBG 28 mmHg; pH VBG 7.39 (7.36-7.41)
[2024-05-04 21:34] LABS: Calcium 9.2 mg/dl (8.6-10.3); Creatinine Clr Calc Pharmacy 81.5 ml/min; Potassium 3.7 mmol/L (3.5-5.1)
[2024-05-04 21:40] LABS: Troponin I High Sensitivity 19.6 pg/ml (0-20)
--- NOTE | 2024-05-04 21:52 | XRay Report ---
SINGLE VIEW CHEST CLINICAL HISTORY: Cough FINDINGS: An AP, portable, upright chest radiographs are compared to study dated 11/24/2021. The exami nation is degraded by portable technique and apical lordotic positioning. The heart is enlarged notin g atherosclerotic calcification of the thoracic aorta. The pulmonary vasculature is noncongested. The re is left basilar consolidation and a small left pleural effusion. The right lung appears clear noti ng dependent atelectasis. No pneumothorax is seen. The skeletal structures are osteopenic. The bony t horax is grossly intact. IMPRESSION: 1. Cardiomegaly without radiographic evidence of congestive failure. 2. Chronic left pleural effusion with left basilar consolidation. This is similar in appearance to pr ior studies. Correlate clinically. ACT 112: Negative or not required by law. Electronically signed by: Wesley Lee M.D. 05/04/2024 9:51 PM
[2024-05-04 21:56] LABS: Partial Thromboplastin Ratio 0.9; Partial Thromboplastin Time 23 Seconds (21-31); Prothrombin Time 10.9 Seconds (9.0-12.0)
[2024-05-04 22:12] LABS: Adenovirus PCR Not Detected (NotDetected); Bordetella parapertussis PCR Not Detected (NotDetected); Bordetella pertussis PCR Not Detected (NotDetected); Chlamydia pneumoniae PCR Not Detected (NotDetected); Coronavirus 229E PCR Not Detected (NotDetected); Coronavirus CoV-2 (COVID19)PCR Not Detected (NotDetected); Coronavirus HKU1 PCR Not Detected (NotDetected); Coronavirus NL63 PCR Not Detected (NotDetected); Coronavirus OC43PCR Not Detected (NotDetected); Human Metapneumovirus PCR Not Detected (NotDetected); Influenza A PCR Not Detected (NotDetected); Influenza B PCR Not Detected (NotDetected); Mycoplasma pneumoniae PCR Not Detected (NotDetected); Parainfluenza Virus 1 PCR Not Detected (NotDetected); Parainfluenza Virus 2 PCR Not Detected (NotDetected); Parainfluenza Virus 3 PCR Not Detected (NotDetected); Parainfluenza Virus 4 PCR Not Detected (NotDetected); Respiratory Syncytial VirusPCR Not Detected (NotDetected); Rhinovirus/Enterovirus PCR Not Detected (NotDetected)
--- NOTE | 2024-05-04 22:22 | CT Scan Report ---
Exam(s): CT HEAD Without Contrast EXAM: CT Head Without Intravenous Contrast CLINICAL HISTORY: Reason for exam: watts. TECHNIQUE: Axial computed tomography images of the head/brain without intravenous contrast. CTDI is 37.78 mGy and DLP is 624.41 mGy-cm. Automated exposure control was utilized for the study. A dose lowering technique was utilized adhering to the principles of ALARA. COMPARISON: No relevant prior studies available. FINDINGS: Brain: There is an approximately 4.5 cm area in the right frontal lobe which demonstrates slight hyperdensity the cortex and decreased density in the underlying white matter. No mass-effect or midline shift. No hemorrhage. Ventricles: Unremarkable. No ventriculomegaly. Bones/joints: Unremarkable. No acute fracture. Soft tissues: Unremarkable. Sinuses: Trace amount of chronic appearing mucosal thickening in the right maxillary sinus. The remaining paranasal sinuses are normal. Mastoid air cells: Unremarkable as visualized. No mastoid effusion. IMPRESSION: There is an approximately 4.5 cm area in the right frontal lobe which demonstrates slight hyperdensity the cortex and decreased density in the underlying white matter. No mass-effect or midline shift. Consider subacute infarct, less likely neoplasm. MRI brain with diffusion- weighted imaging and contrast would be helpful for further characterization if clinically indicated. Communications: Call Doctor Above results Electronically signed by: Aidan Valenzuela MD 05/04/24 22:21 PM
--- NOTE | 2024-05-04 22:30 | Emergency Department Note ---
History of Present Illness General Chief complaint: Flu Like Symptoms Stated complaint: flu like symptoms, coughing, headache Time Seen by Provider: 05/04/24 20:52 History of Present Illness Provider complaint: Headache cough Maximum Pain Intensity: 4 69-year-old male presents emergency department for headache and cough. Patient reports a headache for the last day. He reports no fever. Reports no falls or traumas. No blood thinners. Patient reports that he has been coughing a lot and having phlegm. No hemoptysis. No chest pain or difficulty breathing. No abdominal pain. No fever. No nausea vomiting or diarrhea. Home Medications Medication Instructions Recorded Confirmed Type aspirin 81 mg tablet,delayed 81 mg PO DAILY 04/26/19 05/04/24 History release atorvastatin 80 mg tablet 80 mg PO DAILY 11/24/21 05/04/24 History clopidogrel 75 mg tablet 75 mg PO DAILY 11/24/21 05/04/24 History cyanocobalamin (vitamin B-12) 2,000 mcg PO DAILY 11/24/21 05/04/24 History 2,000 mcg tablet,extended release (Vitamin B-12 ER) ezetimibe 10 mg tablet 10 mg PO DAILY 11/24/21 05/04/24 History levothyroxine 88 mcg tablet 88 mcg PO DAILYBB 11/24/21 05/04/24 History losartan 25 mg tablet 12.5 mg PO DAILY 11/24/21 05/04/24 History alirocumab 150 mg/mL subcutaneous 150 mg subcut . EVERY 2 WEEKS 05/04/24 05/04/24 History pen injector (Praluent Pen) cholecalciferol (vitamin D3) 25 25 mcg PO DAILY 05/04/24 05/04/24 History mcg (1,000 unit) chewable tablet (Vitamin D3) metoprolol succinate 50 mg 50 mg PO QAM 05/04/24 05/04/24 History tablet,extended release 24 hr nitroglycerin 0.4 mg sublingual 0.4 mg sublingual UD PRN Chest Pain 05/04/24 05/04/24 History tablet Allergies Allergy/AdvReac Type Severity Reaction Status Date / Time morphine AdvReac Severe mood Verified 05/04/24 21:56 change, makes mean lisinopril AdvReac Intermediate Cough Verified 05/04/24 21:56 UNKNOWN BP PILL AdvReac Severe Cough Uncoded 05/04/24 21:56 Past Med/Surg History Problem List (Updated 05/04/24 @ 23:40 by Javier Pandya MD) Acute CVA (cerebrovascular accident) (Acute) Noncompliance with medication regimen Dyslipidemia, goal LDL below 70 [place] (myocardial infarction) Non-ST elevation [place] (NSTEMI) (Acute) Medical History (Updated 05/04/24 @ 23:40 by Javier Pandya MD) Hypothyroid Dyslipidemia, goal LDL below 70 [place] (myocardial infarction) No significant past medical history Surgical History S/P coronary artery stent placement Social History Smoking Status: Never smoker Do You Dip or Chew Tobacco: No; Hx Alcohol Use: Yes Alcohol type: beer and wine Hx Substance Use: No Preferred Language: Azeri Communication Ability: Effective Data Processing Manager Required: No Beliefs That Will Affect Care: None Current Living Situation: Significant Other Feels Safe at Home: Yes Assistive Devices: None Physical Exam Vital Signs Vital Signs - 24 hr 05/04/24 20:24 05/04/24 20:44 05/04/24 22:03 Temperature 37.4 C Temperature Source Temporal Artery Scan Pulse Rate 66 66 Pulse Rate [Apical] 66 Pulse Rate from SpO2 Sensor Respiratory Rate 20 20 Respiratory Effort / Characteristics Non-Labored Spontaneous Respiratory Depth Normal Respiratory Pattern Regular Blood Pressure 174/78 H Blood Pressure [Left Arm] 145/73 H Blood Pressure Mean 110 Blood Pressure Mean [Left Arm] 97 Pulse Oximetry 91 90 Oxygen Delivery Method Room Air Room Air Oxygen Flow Rate Sepsis Recent Fever Within 48 Hours Yes Sepsis New/Unexplained Change in Mental Status No Sepsis Action Taken by Nursing No Action Required 05/04/24 22:03 05/04/24 22:12 05/04/24 22:32 Temperature Temperature Source Pulse Rate 66 65 Pulse Rate [Apical] Pulse Rate from SpO2 Sensor 64 Respiratory Rate 20 19 Respiratory Effort / Characteristics Respiratory Depth Respiratory Pattern Blood Pressure 143/67 H Blood Pressure [Left Arm] Blood Pressure Mean 101 Blood Pressure Mean [Left Arm] Pulse Oximetry 90 96 Oxygen Delivery Method Room Air Nasal Cannula Oxygen Flow Rate 2 Sepsis Recent Fever Within 48 Hours Sepsis New/Unexplained Change in Mental Status Sepsis Action Taken by Nursing 05/04/24 22:36 05/04/24 22:48 05/04/24 22:50 Temperature Temperature Source Pulse Rate 73 72 Pulse Rate [Apical] Pulse Rate from SpO2 Sensor 73 72 Respiratory Rate 26 H 18 Respiratory Effort / Characteristics Respiratory Depth Respiratory Pattern Blood Pressure 155/72 H Blood Pressure [Left Arm] Blood Pressure Mean 109 Blood Pressure Mean [Left Arm] Pulse Oximetry 95 95 Oxygen Delivery Method Nasal Cannula Nasal Cannula Oxygen Flow Rate 2 2 Sepsis Recent Fever Within 48 Hours Sepsis New/Unexplained Change in Mental Status Sepsis Action Taken by Nursing Physical Exam GENERAL: Patient does appear lethargic but is able to answer all questions. HENT: Exam performed. - Head: Normocephalic and atraumatic. - Right Ear: External ear normal. No mastoid erythema - Left Ear: External ear normal. No mastoid erythema - Mouth/Throat: The oropharynx is clear and moist. No trismus in the jaw. No dental abscesses or uvula swelling. No oropharyngeal exudate or tonsillar abscesses. EYES: Conjunctivae and EOM are normal. Pupils are equal, round, and reactive to light. Right eye exhibits no discharge. Left eye exhibits no discharge. No scleral icterus. NECK: Normal range of motion. Neck supple. No JVD present.No rigidity. No tracheal deviation and normal range of motion present. CV: Normal rate, regular rhythm, normal heart sounds and intact distal pulses. There is no peripheral edema. Palpable radial pulses bue. PULM/CHEST: Effort normal and breath sounds normal. No respiratory distress. No stridor. He has no wheezes. He has no rales. ABD: The abdomen is soft. There is no tenderness. There is no rebound, no guarding MUSC/SKEL: Normal range of motion. There is no peripheral edema, tenderness or deformity. LYMPH: No cervical adenopathy. NEURO: He has normal strength. No cranial nerve deficit or sensory deficit. No dysarthria. No expressive aphasia. No cerebellar deficits. SKIN: Skin is warm and dry. He is not diaphoretic. Course Course 2051: The patient was evaluated in room C4. A complete history and physical exam was performed Cardiac monitoring: An order was placed for continuous cardiac monitoring. The monitor shows a rate of 60 with sinus rhythm interpreted by me 0: Vital signs stable. Family is now here and stated they thought that the patient was slurring his words starting around 6:30 PM. On reassessment patient does appear more weak particularly on his left side. He is now having dysarthria. CT of the head viewed by me shows a possible CVA on the right side. Patient be sent for CT angios and code stroke called. 2229: Spoke with Dr. Nicolas valdez who states there is a possible subacute infarct. 2234: Spoke with Dr. Hernandez [facility]. She states that it is unclear when the patient's last well normal is and she would not recommend TNKase at this time but she will evaluate the patient on the [facility] tel[facility] cart. 2241: Dr. Hernandez is on the telestroke cart evaluating the patient. Family is back at bedside. 2259: Dr. Hernandez on the screen with patient. CT angio of head and neck negative. She was [place] texted the results. Dr. Hernandez recommends 1 L normal saline bolus followed by normal saline 100 cc/h after that. She recommends aspirin 300 rectally. She states she wants the patient to receive Brilinta 180 milligrams now and then 12 hours later 90 mg. She states keep the systolic blood pressure less than 200 and the diastolic blood pressure less than 100 and allow permissive hypertension. She states that the patient is not a TNK candidate at this time. She is discussing the results with the family. Patient will be admitted to the [facility] hospitalist team. Administered Medications Discontinued Medications Aspirin (Aspirin 300 Mg Supp) 300 mg TN ONE ONE Stop: 05/04/24 22:56 Last Admin: 05/04/24 23:24 Dose: 300 mg Documented By: CELINE Atorvastatin Calcium (Atorvastatin 40 Mg Tab) 80 mg PO NOW STA Stop: 05/04/24 22:56 Last Admin: 05/04/24 23:06 Dose: Not Given Documented By: EULA Diphenhydramine HCl (Diphenhydramine 50 Mg/Ml Vial) 25 mg IV NOW STA Stop: 05/04/24 20:59 Last Admin: 05/04/24 21:15 Dose: 25 mg Documented By: AMMY Ioversol (Optiray 320 125ml) 120 ml IV ONCE ONE Stop: 05/04/24 22:31 Last Admin: 05/04/24 22:31 Dose: 120 ml Documented By: SANJU Metoclopramide HCl (Metoclopramide Hcl Inj 5 Mg/Ml 2 Ml Vial) 5 mg IV ONE ONE Stop: 05/04/24 20:59 Last Admin: 05/04/24 21:15 Dose: 5 mg Documented By: AMMY Critical Care Time Critical Care Time: Yes Total Critical Care Time: 37 I have personally spent greater than 37 minutes of critical care time in the direct management of this patient. This includes bedside care, interpretation of diagnostic studies, and testing, discussion with consultants, patient, and family members, and other required patient management activities. This 37 minutes is in excess of all separately billable procedures. Medical Decision Making Laboratory Data Attestation: I reviewed the patient's lab results. 05/04/24 20:34 05/04/24 20:34 Lab Results 05/04/24 05/04/24 Range/Units 20:34 21:06 WBC 11.43 H (4.8-10.8) K/ul RBC 4.35 L (4.70-6.10) M/uL Hgb 13.4 L (14.0-18.0) g/dl Hct 39.6 L (42.0-52.0) % MCV 91.0 (80.0-100.0) fL MCH 30.8 (25.0-34.0) pg MCHC 33.8 (32.0-36.0) g/dL RDW Std Deviation 45.1 (36.4-46.3) fL RDW Coeff of Nitish 13.7 (11.5-14.5) % Plt Count 189 (130-400) K/uL MPV 13.2 H (9.4-12.4) fL Immature Gran % (Auto) 0.5 % Neut % (Auto) 69.2 % Lymph % (Auto) 21.6 % [place] % (Auto) 6.6 % Eos % (Auto) 1.7 % Baso % (Auto) 0.4 % Neut # (Auto) 7.90 H (1.40-6.50) K/uL Lymph # (Auto) 2.47 (1.20-3.40) K/uL [place] # (Auto) 0.75 H (0.11-0.59) K/uL Eos # (Auto) 0.20 (0.00-0.50) K/uL Baso # (Auto) 0.05 (0.00-0.20) K/uL Immature Gran # (Auto) 0.06 (0.01-0.20) K/uL Platelet Estimate Normal (Normal) PT 10.9 (9.0-12.0) Seconds INR 1.0 (0.9-1.1) APTT 23 (21-31) Seconds PTT Ratio 0.9 VBG pH 7.39 (7.36-7.41) VBG pCO2 48 (38-50) mmHg VBG pO2 28 mmHg VBG HCO3 29 mmol/L VBG O2 Saturation < 60.0 % VBG Base Excess 3.3 mEq/L Sodium 140 (136-145) mmol/L Potassium 3.7 (3.5-5.1) mmol/L Chloride 104 (98-107) mmol/L Carbon Dioxide 30 (21-32) mmol/L Anion Gap 6 (3-11) BUN 11 (6-23) mg/dl Creatinine 1.10 (0.6-1.4) mg/dl Est Cr Clr Drug Dosing 81.5 ml/min eGFR 72.22 BUN/Creatinine Ratio 10.0 (10-20) Glucose 138 H (70-99(Fasting)) mg/dl Calcium 9.2 (8.6-10.3) mg/dl Troponin I High Sens 19.6 (0-20) pg/ml Adenovirus (PCR) Not Detected (NotDetected) B. pertussis DNA (PCR) Not Detected (NotDetected) B.parapertussis DNA PCR Not Detected (NotDetected) C. pneumoniae DNA (PCR) Not Detected (NotDetected) Coronavirus OC43 (PCR) Not Detected (NotDetected) Coronavirus HKU1 (PCR) Not Detected (NotDetected) Coronavirus 229E (PCR) Not Detected (NotDetected) SARS-CoV-2 (PCR) Not Detected (NotDetected) Coronavirus NL63 (PCR) Not Detected (NotDetected) Human Metapneumovir PCR Not Detected (NotDetected) Influenza Type A (PCR) Not Detected (NotDetected) Influenza Type B (PCR) Not Detected (NotDetected) M. pneumoniae (PCR) Not Detected (NotDetected) Parainfluenza 1 (PCR) Not Detected (NotDetected) Parainfluenza 2 (PCR) Not Detected (NotDetected) Parainfluenza 3 (PCR) Not Detected (NotDetected) Parainfluenza 4 (PCR) Not Detected (NotDetected) RSV (PCR) Not Detected (NotDetected) Entero/Rhino (PCR) Not Detected (NotDetected) Imaging Data Attestation: I personally reviewed and interpreted this imaging study as follows: My Impression: CT head: Right-sided hyperdensity concerning for CVA. No ICH. Radiologist's Impression: Head CT 05/04/24 20:57 CR Exam(s): CT HEAD Without Contrast EXAM: CT Head Without Intravenous Contrast CLINICAL HISTORY: Reason for exam: watts. TECHNIQUE: Axial computed tomography images of the head/brain without intravenous contrast. CTDI is 37.78 mGy and DLP is 624.41 mGy-cm. Automated exposure control was utilized for the study. A dose lowering technique was utilized adhering to the principles of ALARA. COMPARISON: No relevant prior studies available. FINDINGS: Brain: There is an approximately 4.5 cm area in the right frontal lobe which demonstrates slight hyperdensity the cortex and decreased density in the underlying white matter. No mass-effect or midline shift. No hemorrhage. Ventricles: Unremarkable. No ventriculomegaly. Bones/joints: Unremarkable. No acute fracture. Soft tissues: Unremarkable. Sinuses: Trace amount of chronic appearing mucosal thickening in the right maxillary sinus. The remaining paranasal sinuses are normal. Mastoid air cells: Unremarkable as visualized. No mastoid effusion. IMPRESSION: There is an approximately 4.5 cm area in the right frontal lobe which demonstrates slight hyperdensity the cortex and decreased density in the underlying white matter. No mass-effect or midline shift. Consider subacute infarct, less likely neoplasm. MRI brain with diffusion- weighted imaging and contrast would be helpful for further characterization if clinically indicated. Communications: Call Doctor Above results Electronically signed by: Aidan Valenzuela MD 05/04/24 22:21 PM Chest X-Ray 05/04/24 20:58 SINGLE VIEW CHEST CLINICAL HISTORY: Cough FINDINGS: An AP, portable, upright chest radiographs are compared to study dated 11/24/2021. The examination is degraded by portable technique and apical lordotic positioning. The heart is enlarged noting atherosclerotic calcification of the thoracic aorta. The pulmonary vasculature is noncongested. There is left basilar consolidation and a small left pleural effusion. The right lung appears clear noting dependent atelectasis. No pneumothorax is seen. The skeletal structures are osteopenic. The bony thorax is grossly intact. IMPRESSION: 1. Cardiomegaly without radiographic evidence of congestive failure. 2. Chronic left pleural effusion with left basilar consolidation. This is similar in appearance to prior studies. Correlate clinically. ACT 112: Negative or not required by law. Electronically signed by: Wesley Lee M.D. 05/04/2024 9:51 PM Head CTA 05/04/24 22:18 CR Exam(s): CTA HEAD With Contrast IV Amt: 120 cc opti 320 EXAM: CT Angiography Head With Intravenous Contrast CLINICAL HISTORY: Reason for exam: stroke. TECHNIQUE: Axial computed tomographic angiography images of the head with intravenous contrast. CTDI is 35.5 mGy and DLP is 634.74 mGy-cm. Automated exposure control was utilized for the study. A dose lowering technique was utilized adhering to the principles of ALARA. MIP reconstructed images were created and reviewed. CONTRAST: Patient received 120 cc Optiray 320 of IV contrast COMPARISON: Precontrast head CT. FINDINGS: Right internal carotid artery: No acute findings. Intracranial segment is patent with no significant stenosis. No aneurysm. Right anterior cerebral artery: Unremarkable. No occlusion or significant stenosis. No aneurysm. Right middle cerebral artery: Unremarkable. No occlusion or significant stenosis. No aneurysm. Right posterior cerebral artery: There is a normal anatomic variant of origin of the right posterior cerebral artery from the anterior circulation and a hypoplastic right P1 segment. No occlusion or significant stenosis. No aneurysm. Right vertebral artery: Unremarkable as visualized. Left internal carotid artery: No acute findings. Intracranial segment is patent with no significant stenosis. No aneurysm. Left anterior cerebral artery: Unremarkable. No occlusion or significant stenosis. No aneurysm. Left middle cerebral artery: Unremarkable. No occlusion or significant stenosis. No aneurysm. Left posterior cerebral artery: Unremarkable. No occlusion or significant stenosis. No aneurysm. Left vertebral artery: Unremarkable as visualized. Basilar artery: Unremarkable. No occlusion or significant stenosis. No aneurysm. IMPRESSION: No acute findings in the arteries of the head/brain. Communications: Call Doctor Stroke Electronically signed by: Aidan Valenzuela MD 05/04/24 22:43 PM Neck CTA 05/04/24 22:18 CR Exam(s): CTA NECK With Contrast IV Amt: 120 cc opti 320 EXAM: CT Angiography Neck With Intravenous Contrast CLINICAL HISTORY: Reason for exam: stroke. TECHNIQUE: Routine carotid CT angiography protocol was performed with intravenous contrast. NASCET criteria using the distal ICAs for comparison were used for evaluation of stenoses. CTDI is 35.5 mGy and DLP is 634.74 mGy-cm. Automated exposure control was utilized for the study. A dose lowering technique was utilized adhering to the principles of ALARA. MIP reconstructed images were created and reviewed. CONTRAST: Patient received 120 cc Optiray 320 of IV contrast COMPARISON: None. FINDINGS: VASCULATURE: Right common carotid artery: Unremarkable. No occlusion or significant stenosis. No dissection. Right internal carotid artery: Small amount of calcified plaque in the proximal right internal carotid artery with 15% stenosis. No dissection. Right external carotid artery: Unremarkable. No occlusion. Right vertebral artery: Unremarkable. No occlusion or significant stenosis. No dissection. Left common carotid artery: Unremarkable. No occlusion or significant stenosis. No dissection. Left internal carotid artery: Small amount of calcified plaque in the proximal left internal carotid artery with 10% stenosis. No dissection. Left external carotid artery: Unremarkable. No occlusion. Left vertebral artery: Unremarkable. No occlusion or significant stenosis. No dissection. Aorta: The aortic arch is mildly calcified but nondilated. There is no aneurysm or dissection. NECK: Bones/joints: Moderate to severe multilevel degenerative disc disease and facet arthrosis throughout the cervical spine. No acute fracture or traumatic subluxation is seen. Soft tissues: Unremarkable. Lung apices: Clear. CAROTID STENOSIS REFERENCE USING NASCET CRITERIA: % ICA stenosis = (1 - narrowest ICA diameter/diameter of distal cervical ICA) x 100. Mild - <50% stenosis. Moderate - 50-69% stenosis. Severe - 70-94% stenosis. Near occlusion - 95-99% stenosis. Occluded - 100% stenosis. IMPRESSION: No acute findings in the arteries of the neck. Communications: Call Doctor Stroke Electronically signed by: Aidan Valenzuela MD 05/04/24 22:50 PM ECG Data Attestation: I personally reviewed and interpreted this ECG as follows: Rate (beats per minute): 64 Rhythm: + normal sinus ECG Intervals/blocks: + Normal QRS, + Normal TN and + Normal QT-c ECG ST segments: + Normal ST segments MDM Narrative 2051: The patient was evaluated in room C4. A complete history and physical exam was performed Cardiac monitoring: An order was placed for continuous cardiac monitoring. The monitor shows a rate of 60 with sinus rhythm interpreted by me 2220: Vital signs stable. Family is now here and stated they thought that the patient was slurring his words starting around 6:30 PM. On reassessment patient does appear more weak particularly on his left side. He is now having dysarthria. CT of the head viewed by me shows a possible CVA on the right side. Patient be sent for CT angios and code stroke called. 2229: Spoke with Dr. Valenzuela radiology who states there is a possible subacute infarct. 2234: Spoke with Dr. Hernandez [facility]. She states that it is unclear when the patient's last well normal is and she would not recommend TNKase at this time but she will evaluate the patient on the [facility] telest[facility] cart. 2241: Dr. Hernandez is on the telestroke cart evaluating the patient. Family is back at bedside. 2259: Dr. Hernandez on the screen with patient. CT angio of head and neck negative. She was [place] texted the results. Dr. Hernandez recommends 1 L normal saline bolus followed by normal saline 100 cc/h after that. She recommends aspirin 300 rectally. She states she wants the patient to receive Brilinta 180 milligrams now and then 12 hours later 90 mg. She states keep the systolic blood pressure less than 200 and the diastolic blood pressure less than 100 and allow permissive hypertension. She states that the patient is not a TNK candidate at this time. She is discussing the results with the family. [facility] & Plan Acute CVA (cerebrovascular accident) Discharge Plan Visit Data Chief Complaint: Flu Like Symptoms Stated Complaint: flu like symptoms, coughing, headache ED Provider: Javier Pandya Discharge Problem: Acute CVA (cerebrovascular accident) Patient Disposition: Admitted As Inpatient Forms Stand Alone Forms: My [employer] Prescriptions Prescriptions: No Action aspirin 81 mg Tablet,Delayed Release (Dr/Ec) 81 mg PO DAILY atorvastatin 80 mg tablet 80 mg PO DAILY clopidogrel 75 mg tablet 75 mg PO DAILY levothyroxine 88 mcg tablet 88 mcg PO DAILYBB losartan 25 mg tablet 12.5 mg PO DAILY Rx Instructions: 1/2 tablet dose ezetimibe 10 mg tablet 10 mg PO DAILY cyanocobalamin (vitamin B-12) [Vitamin B-12] 2,000 mcg Tablet Extended Release 2,000 mcg PO DAILY nitroglycerin 0.4 mg tablet, sublingual 0.4 mg sublingual UD PRN (Reason: Chest Pain) Praluent Pen 150 mg/mL pen injector 150 mg SUBCUT . EVERY 2 WEEKS metoprolol succinate 50 mg tablet extended release 24 hr 50 mg PO QAM cholecalciferol (vitamin D3) [Vitamin D3] 25 mcg (1,000 unit) Tablet,Chewable 25 mcg PO DAILY Referrals Referrals: David Canales MD [Primary Care Provider] -
[2024-05-04] MEDS: OPTIRAY 320 125ml IV ONE (22:31)
--- NOTE | 2024-05-04 22:44 | CT Scan Report ---
Exam(s): CTA HEAD With Contrast IV Amt: 120 cc opti 320 EXAM: CT Angiography Head With Intravenous Contrast CLINICAL HISTORY: Reason for exam: stroke. TECHNIQUE: Axial computed tomographic angiography images of the head with intravenous contrast. CTDI is 35.5 mGy and DLP is 634.74 mGy-cm. Automated exposure control was utilized for the study. A dose lowering technique was utilized adhering to the principles of ALARA. MIP reconstructed images were created and reviewed. CONTRAST: Patient received 120 cc Optiray 320 of IV contrast COMPARISON: Precontrast head CT. FINDINGS: Right internal carotid artery: No acute findings. Intracranial segment is patent with no significant stenosis. No aneurysm. Right anterior cerebral artery: Unremarkable. No occlusion or significant stenosis. No aneurysm. Right middle cerebral artery: Unremarkable. No occlusion or significant stenosis. No aneurysm. Right posterior cerebral artery: There is a normal anatomic variant of origin of the right posterior cerebral artery from the anterior circulation and a hypoplastic right P1 segment. No occlusion or significant stenosis. No aneurysm. Right vertebral artery: Unremarkable as visualized. Left internal carotid artery: No acute findings. Intracranial segment is patent with no significant stenosis. No aneurysm. Left anterior cerebral artery: Unremarkable. No occlusion or significant stenosis. No aneurysm. Left middle cerebral artery: Unremarkable. No occlusion or significant stenosis. No aneurysm. Left posterior cerebral artery: Unremarkable. No occlusion or significant stenosis. No aneurysm. Left vertebral artery: Unremarkable as visualized. Basilar artery: Unremarkable. No occlusion or significant stenosis. No aneurysm. IMPRESSION: No acute findings in the arteries of the head/brain. Communications: Call Doctor Stroke Electronically signed by: Aidan Valenzuela MD 05/04/24 22:43 PM
--- NOTE | 2024-05-04 22:51 | CT Scan Report ---
Exam(s): CTA NECK With Contrast IV Amt: 120 cc opti 320 EXAM: CT Angiography Neck With Intravenous Contrast CLINICAL HISTORY: Reason for exam: stroke. TECHNIQUE: Routine carotid CT angiography protocol was performed with intravenous contrast. NASCET criteria using the distal ICAs for comparison were used for evaluation of stenoses. CTDI is 35.5 mGy and DLP is 634.74 mGy-cm. Automated exposure control was utilized for the study. A dose lowering technique was utilized adhering to the principles of ALARA. MIP reconstructed images were created and reviewed. CONTRAST: Patient received 120 cc Optiray 320 of IV contrast COMPARISON: None. FINDINGS: VASCULATURE: Right common carotid artery: Unremarkable. No occlusion or significant stenosis. No dissection. Right internal carotid artery: Small amount of calcified plaque in the proximal right internal carotid artery with 15% stenosis. No dissection. Right external carotid artery: Unremarkable. No occlusion. Right vertebral artery: Unremarkable. No occlusion or significant stenosis. No dissection. Left common carotid artery: Unremarkable. No occlusion or significant stenosis. No dissection. Left internal carotid artery: Small amount of calcified plaque in the proximal left internal carotid artery with 10% stenosis. No dissection. Left external carotid artery: Unremarkable. No occlusion. Left vertebral artery: Unremarkable. No occlusion or significant stenosis. No dissection. Aorta: The aortic arch is mildly calcified but nondilated. There is no aneurysm or dissection. NECK: Bones/joints: Moderate to severe multilevel degenerative disc disease and facet arthrosis throughout the cervical spine. No acute fracture or traumatic subluxation is seen. Soft tissues: Unremarkable. Lung apices: Clear. CAROTID STENOSIS REFERENCE USING NASCET CRITERIA: % ICA stenosis = (1 - narrowest ICA diameter/diameter of distal cervical ICA) x 100. Mild - <50% stenosis. Moderate - 50-69% stenosis. Severe - 70-94% stenosis. Near occlusion - 95-99% stenosis. Occluded - 100% stenosis. IMPRESSION: No acute findings in the arteries of the neck. Communications: Call Doctor Stroke Electronically signed by: Aidan Valenzuela MD 05/04/24 22:50 PM
[2024-05-04 22:57] LABS: Basophils # (auto) 0.05 K/uL (0.00-0.20); Basophils % (auto) 0.4 %; Eosinophils % (auto) 1.7 %; Hematocrit (blood only) 39.6 % (42.0-52.0); Hemoglobin 13.4 g/dl (14.0-18.0); Immature Granulocytes # (auto) 0.06 K/uL (0.01-0.20); Immature Granulocytes % (auto) 0.5 %; Lymphocytes # (auto) 2.47 K/uL (1.20-3.40); Lymphocytes % (auto) 21.6 %; Mean Corpuscular Hemoglobin 30.8 pg (25.0-34.0); Mean Corpuscular Hgb Conc 33.8 g/dL (32.0-36.0); Mean Platelet Volume 13.2 fL (9.4-12.4); Monocytes # (auto) 0.75 K/uL (0.11-0.59); Monocytes % (auto) 6.6 %; Neutrophils % (auto) 69.2 %; Platelet Count 189 K/uL (130-400); Platelet Estimate Normal (Normal); RDW Coefficient of Variation 13.7 % (11.5-14.5); RDW Standard Deviation 45.1 fL (36.4-46.3); Red Blood Count 4.35 M/uL (4.70-6.10); White Blood Count 11.43 K/ul (4.8-10.8)
[2024-05-04] MEDS: ATORVASTATIN 40 MG TAB PO STA (23:06)
[2024-05-04] MEDS: ASPIRIN 300 MG SUPP PR ONE (23:24)
[2024-05-04 23:40] LABS: Magnesium 1.6 mg/dl (1.7-2.4)
[2024-05-04] MEDS: TICAGRELOR 90 MG TAB PO ONE (23:40)
[2024-05-04] MEDS ORDERED: PHARMACIST DISCHARGE MED REC CONSULT PRN (23:43)
[2024-05-04] MEDS ORDERED: ACETAMINOPHEN 325 MG TAB PO PRN (23:45)
[2024-05-04] MEDS ORDERED: PROMETHAZINE 6.25 MG/50.25 ML BAG IV PRN (23:45)
[2024-05-04] MEDS: SODIUM CHLORIDE 0.9% 1,000 ML IV ONE (23:49)
[2024-05-05] MEDS ORDERED: CARBOHYDRATES FOR HYPOGLYCEMIA PO PRN (00:01)
[2024-05-05] MEDS ORDERED: GLUCAGON FOR INJ 1 MG VIAL SQ PRN (00:01)
[2024-05-05] MEDS ORDERED: GLUCOSE 10 TAB/TUBE PO PRN (00:01)
[2024-05-05] MEDS ORDERED: DEXTROSE 50% 50 ML SYRINGE IV PRN (00:01)
[2024-05-05] MEDS ORDERED: GLUCOSE 40% GEL 15 GM TUBE PO PRN (00:01)
--- NOTE | 2024-05-05 00:04 | History & Physical Report ---
Date of Service May 05, 2024 Assessment & Plan (1) Encephalopathy: Plan: Multifactorial: Sepsis possibly from aspiration pneumonia Acute CVA, sudden onset dysarthria and left-sided weakness at the ER, possible aspirin and Plavix failure, chronic diastolic heart failure, patient is euvolemic to dry hx CAD status post stenting hypertension, slight elevated secondary to illness hyperlipidemia on statin Rx history PUD DM2 diet controlled, well-controlled as of recent hemoglobin A1c of 6.4 last year hypothyroidism, euthyroid as of recent outpatient TSH a few months ago chronic anemia, hemoglobin at baseline past tobacco abuse Admit to medical telemetry CS, Unasyn Aspiration precautions, [employer] eval Neurochecks Aspirin and Brilinta, MRI brain with and without contrast as per [facility] neurologist recommendations for stroke workup Add TTE to stroke workup Update lipid panel and hemoglobin A1c Permissive hypertension for now Neurology consult contingent on MRI results ISS BG goal 1 10-1 40, carb count coverage past tobacco abuse DVT prophylaxis Lovenox subcu Full code Patient's family requesting updates providers. Madelyn Peter (fiance), contact #[phone]. Ms. Marie Tyler (daughter), contact #[phone]. Text document was generated using TouchPal voice recognition software. It may contain grammatical or spelling errors. Kindly contact undersigned for clarification of any documentation item in question. ADDENDUM 2 AM Brain MRI noted 1. No areas of diffusion restriction are seen to indicate acute stroke. 2. 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 Patient with episodic sinus pauses upon arrival at the floor. Remains lethargic as per RN. AP Right frontal lobe tumor Episodic sinus pauses, lowest heart rate 28 as per RN PCU transfer Will request a.m. provider to contact [facility] neurosurgery in a.m. regarding recommendations for brain tumor workup. Hold antiplatelet Rx except for aspirin for secondary CAD prevention in anticipation of potential biopsy procedure. Continue to hold patient's beta-anastacia Atropine as needed symptomatic bradycardia Cardiology consult in a.m. re: episodic sinus pauses History of Present Illness Chief Complaint: Headache, flulike/cough symptoms Primary Care Provider: David Canales MD History obtained from patient, family, and records. Medical history significant for chronic diastolic heart failure (EF 52%, TTE 2023), CAD status post stenting (2000, 2012, 2018), trace AR, proximal ascending aorta enlargement as per records, hypertension, hyperlipidemia, history PUD, DM2 diet controlled, hypothyroidism, chronic anemia (baseline hemoglobin 12-13), past tobacco abuse. Last [facility] confinement March 2019 for NSTEMI. Cardiac catheterization showed multivessel CAD. Patient transferred to [facility] for evaluation for CABG. Patient given option between PCI angioplasty versus CABG at [facility]. Patient chose PCI angioplasty with stent placement. 1 month history of junky cough symptoms. Patient noted to be coughing with meals/water intake as per partner. No SOB symptoms. Yesterday afternoon, patient noted achy right-sided headache symptoms. Not sure about recent tick bites. Compliant with home medications. Patient brought by family to ER for evaluation last night. Around 22:30 PM (05/04), patient noted by family to have slurred speech and speaking like a drunk person. Left-sided facial droop and left-sided weakness noted. Stroke alert called at the ER. No thrombolytic therapy as per [facility] neurologist recommendations. Aspirin, Brilinta, and Lipitor administered at the ER following specialist recommendations. Patient later noted to be febrile at the ER. Medical History as above Surgical History : Tonsillectomy Family History : Heart disease Personal/Social history : Past tobacco abuse, no EtOH intake, retired [employer] employee Allergies Allergy/AdvReac Type Severity Reaction Status Date / Time morphine AdvReac Severe mood Verified 05/04/24 21:56 change, makes mean lisinopril AdvReac Intermediate Cough Verified 05/04/24 21:56 Home Medications Medication Instructions Recorded Confirmed Type aspirin 81 mg tablet,delayed 81 mg PO DAILY 04/26/19 05/04/24 History release atorvastatin 80 mg tablet 80 mg PO DAILY 11/24/21 05/04/24 History clopidogrel 75 mg tablet 75 mg PO DAILY 11/24/21 05/04/24 History cyanocobalamin (vitamin B-12) 2,000 mcg PO DAILY 11/24/21 05/04/24 History 2,000 mcg tablet,extended release (Vitamin B-12 ER) ezetimibe 10 mg tablet 10 mg PO DAILY 11/24/21 05/04/24 History levothyroxine 88 mcg tablet 88 mcg PO DAILYBB 11/24/21 05/04/24 History losartan 25 mg tablet 12.5 mg PO DAILY 11/24/21 05/04/24 History alirocumab 150 mg/mL subcutaneous 150 mg subcut . EVERY 2 WEEKS 05/04/24 05/04/24 History pen injector (Praluent Pen) cholecalciferol (vitamin D3) 25 25 mcg PO DAILY 05/04/24 05/04/24 History mcg (1,000 unit) chewable tablet (Vitamin D3) metoprolol succinate 50 mg 50 mg PO QAM 05/04/24 05/04/24 History tablet,extended release 24 hr nitroglycerin 0.4 mg sublingual 0.4 mg sublingual UD PRN Chest Pain 05/04/24 05/04/24 History tablet Past Med/Surg History Problem List (Updated 05/05/24 @ 00:35 by Vivek Ryan MD) Encephalopathy Acute CVA (cerebrovascular accident) (Acute) Noncompliance with medication regimen Dyslipidemia, goal LDL below 70 [place] (myocardial infarction) Non-ST elevation [place] (NSTEMI) (Acute) Medical History (Updated 05/05/24 @ 00:35 by Vivek Ryan MD) Hypothyroid Dyslipidemia, goal LDL below 70 [place] (myocardial infarction) No significant past medical history Surgical History S/P coronary artery stent placement Social History Smoking Status: Never smoker Do You Dip or Chew Tobacco: No; Hx Alcohol Use: Yes Alcohol type: beer and wine Hx Substance Use: No Preferred Language: Salvadorean Communication Ability: Effective Specification Consultant Required: No Beliefs That Will Affect Care: None Current Living Situation: Significant Other Feels Safe at Home: Yes Assistive Devices: None Review of Systems Review of Systems: As per HPI, all other systems reviewed and negative Physical Exam Physical Exam: GENERAL: Lethargic, morbidly obese, obese, dysarthric, no respiratory distress SKIN: Pallor, warm HEENT: Alopecia, pale palpebral conjunctivae, no ptosis, flattened left nasolabial fold, moist buccal mucosa NECK : Supple, short neck, no tenderness CHEST : Decreased breath sounds, no tenderness HEART : RRR, no obvious murmurs ABDOMEN: Some distention, nontender EXTREMITIES : Minimal LE swelling, no LE tenderness, no other conspicuous deformities noted NEUROLOGIC : Lethargic, flattened left nasolabial fold, dysarthric, MMTs : RUE/LLE 4/5, LUE/RLE 3/5, gait and stance not assessed Results & Data Results & Data Vital Signs (Past 12 Hours) Vital Signs Temp Pulse Pulse Resp BP BP Pulse Ox 05/04/24 23:51 37.7 C H 63 19 95 05/04/24 23:45 72 19 96 05/04/24 23:31 158/85 H 05/04/24 23:06 64 23 96 05/04/24 23:01 163/100 H 05/04/24 23:01 163/100 H 05/04/24 23:01 163/100 H 05/04/24 23:00 66 19 95 05/04/24 22:50 155/72 H 05/04/24 22:48 72 18 95 05/04/24 22:36 73 26 H 95 05/04/24 22:32 143/67 H 05/04/24 22:12 65 19 96 05/04/24 22:03 66 20 90 05/04/24 22:03 66 20 145/73 H 90 05/04/24 20:44 66 05/04/24 20:24 37.4 C 66 20 174/78 H 91 O2 Del Method O2 Flow Rate 05/04/24 23:51 05/04/24 23:45 05/04/24 23:31 05/04/24 23:06 05/04/24 23:01 05/04/24 23:01 05/04/24 23:01 05/04/24 23:00 05/04/24 22:50 05/04/24 22:48 Nasal Cannula 2 05/04/24 22:36 Nasal Cannula 2 05/04/24 22:32 05/04/24 22:12 Nasal Cannula 2 05/04/24 22:03 Room Air 05/04/24 22:03 Room Air 05/04/24 20:44 05/04/24 20:24 Room Air Laboratory Results Laboratory Results WBC 11.43 K/ul (4.8-10.8) H 05/04/24 20:34 RBC 4.35 M/uL (4.70-6.10) L 05/04/24 20:34 Hgb 13.4 g/dl (14.0-18.0) L 05/04/24 20:34 Hct 39.6 % (42.0-52.0) L 05/04/24:34 MCV 91.0 fL (80.0-100.0) 05/04/24 20:34 MCH 30.8 pg (25.0-34.0) 05/04/24: MCHC 33.8 g/dL (32.0-36.0) 05/04/24 20:34 RDW Std Deviation 45.1 fL (36.4-46.3) 05/04/24:34 RDW Coeff of Nitish 13.7 % (11.5-14.5) 05/04/24:34 Plt Count 189 K/uL (130-400) 05/04/24:34 MPV 13.2 fL (9.4-12.4) H 05/04/24 20:34 Immature Gran % (Auto) 0.5 % 05/04/24:34 Neut % (Auto) 69.2 % 05/04/24 20:34 Lymph % (Auto) 21.6 % 05/04/24 20:34 [place] % (Auto) 6.6 % 05/04/24:34 Eos % (Auto) 1.7 % 05/04/24:34 Baso % (Auto) 0.4 % 05/04/24:34 Neut # (Auto) 7.90 K/uL (1.40-6.50) H 05/04/24 20:34 Lymph # (Auto) 2.47 K/uL (1.20-3.40) 05/04/24 20:34 [place] # (Auto) 0.75 K/uL (0.11-0.59) H 05/04/24 20:34 Eos # (Auto) 0.20 K/uL (0.00-0.50) 05/04/24 20:34 Baso # (Auto) 0.05 K/uL (0.00-0.20) 05/04/24 20:34 Immature Gran # (Auto) 0.06 K/uL (0.01-0.20) 05/04/24 20:34 Platelet Estimate Normal (Normal) 05/04/24 20:34 PT 10.9 Seconds (9.0-12.0) 05/04/24 20:34 INR 1.0 (0.9-1.1) 05/04/24 20:34 APTT 23 Seconds (21-31) 05/04/24 20:34 PTT Ratio 0.9 05/04/24 20:34 VBG pH 7.39 (7.36-7.41) 05/04/24 21:06 VBG pCO2 48 mmHg (38-50) 05/04/24 21:06 VBG pO2 28 mmHg 05/04/24 21:06 VBG HCO3 29 mmol/L 05/04/24 21: VBG O2 Saturation < 60.0 % 05/04/24 21: VBG Base Excess 3.3 mEq/L 05/04/24 21:06 Sodium 140 mmol/L (136-145) 05/04/24 20:34 Potassium 3.7 mmol/L (3.5-5.1) 05/04/24 20:34 Chloride 104 mmol/L (98-107) 05/04/24 20:34 Carbon Dioxide 30 mmol/L (21-32) 05/04/24 20:34 Anion Gap 6 (3-11) 05/04/24 20:34 BUN 11 mg/dl (6-23) 05/04/24 20:34 Creatinine 1.10 mg/dl (0.6-1.4) 05/04/24 20:34 Est Cr Clr Drug Dosing 81.5 ml/min 05/04/24 20:34 eGFR 72.22 05/04/24 20:34 BUN/Creatinine Ratio 10.0 (10-20) 05/04/24 20:34 Glucose 138 mg/dl (70-99(Fasting)) H 05/04/24 20:34 Calcium 9.2 mg/dl (8.6-10.3) 05/04/24 20:34 Magnesium 1.6 mg/dl (1.7-2.4) L 05/04/24 20:34 Troponin I High Sens 19.6 pg/ml (0-20) 05/04/24 20:34 Adenovirus (PCR) Not Detected (NotDetected) 05/04/24 21:06 B. pertussis DNA (PCR) Not Detected (NotDetected) 05/04/24 21:06 B.parapertussis DNA PCR Not Detected (NotDetected) 05/04/24 21:06 C. pneumoniae DNA (PCR) Not Detected (NotDetected) 05/04/24 21:06 Coronavirus OC43 (PCR) Not Detected (NotDetected) 05/04/24 21:06 Coronavirus HKU1 (PCR) Not Detected (NotDetected) 05/04/24 21:06 Coronavirus 229E (PCR) Not Detected (NotDetected) 05/04/24 21:06 SARS-CoV-2 (PCR) Not Detected (NotDetected) 05/04/24 21:06 Coronavirus NL63 (PCR) Not Detected (NotDetected) 05/04/24 21:06 Human Metapneumovir PCR Not Detected (NotDetected) 05/04/24 21:06 Influenza Type A (PCR) Not Detected (NotDetected) 05/04/24 21:06 Influenza Type B (PCR) Not Detected (NotDetected) 05/04/24 21:06 M. pneumoniae (PCR) Not Detected (NotDetected) 05/04/24 21:06 Parainfluenza 1 (PCR) Not Detected (NotDetected) 05/04/24 21:06 Parainfluenza 2 (PCR) Not Detected (NotDetected) 05/04/24 21:06 Parainfluenza 3 (PCR) Not Detected (NotDetected) 05/04/24 21:06 Parainfluenza 4 (PCR) Not Detected (NotDetected) 05/04/24 21:06 RSV (PCR) Not Detected (NotDetected) 05/04/24 21:06 Entero/Rhino (PCR) Not Detected (NotDetected) 05/04/24 21:[address] 05/04/24 20:57 CR Exam(s): CT HEAD Without Contrast EXAM: CT Head Without Intravenous Contrast CLINICAL HISTORY: Reason for exam: watts. TECHNIQUE: Axial computed tomography images of the head/brain without intravenous contrast. CTDI is 37.78 mGy and DLP is 624.41 mGy-cm. Automated exposure control was utilized for the study. A dose lowering technique was utilized adhering to the principles of ALARA. COMPARISON: No relevant prior studies available. FINDINGS: Brain: There is an approximately 4.5 cm area in the right frontal lobe which demonstrates slight hyperdensity the cortex and decreased density in the underlying white matter. No mass-effect or midline shift. No hemorrhage. Ventricles: Unremarkable. No ventriculomegaly. Bones/joints: Unremarkable. No acute fracture. Soft tissues: Unremarkable. Sinuses: Trace amount of chronic appearing mucosal thickening in the right maxillary sinus. The remaining paranasal sinuses are normal. Mastoid air cells: Unremarkable as visualized. No mastoid effusion. IMPRESSION: There is an approximately 4.5 cm area in the right frontal lobe which demonstrates slight hyperdensity the cortex and decreased density in the underlying white matter. No mass-effect or midline shift. Consider subacute infarct, less likely neoplasm. MRI brain with diffusion- weighted imaging and contrast would be helpful for further characterization if clinically indicated. Communications: Call Doctor Above results Electronically signed by: Aidan Valenzuela MD 05/04/24 22:21 PM Chest X-Ray 05/04/24 20:58 SINGLE VIEW CHEST CLINICAL HISTORY: Cough FINDINGS: An AP, portable, upright chest radiographs are compared to study dated 11/24/2021. The examination is degraded by portable technique and apical lordotic positioning. The heart is enlarged noting atherosclerotic calcification of the thoracic aorta. The pulmonary vasculature is noncongested. There is left basilar consolidation and a small left pleural effusion. The right lung appears clear noting dependent atelectasis. No pneumothorax is seen. The skeletal structures are osteopenic. The bony thorax is grossly intact. IMPRESSION: 1. Cardiomegaly without radiographic evidence of congestive failure. 2. Chronic left pleural effusion with left basilar consolidation. This is similar in appearance to prior studies. Correlate clinically. ACT 112: Negative or not required by law. Electronically signed by: Wesley Lee M.D. 05/04/2024 9:51 PM Head CTA 05/04/24 22:18 CR Exam(s): CTA HEAD With Contrast IV Amt: 120 cc opti 320 EXAM: CT Angiography Head With Intravenous Contrast CLINICAL HISTORY: Reason for exam: stroke. TECHNIQUE: Axial computed tomographic angiography images of the head with intravenous contrast. CTDI is 35.5 mGy and DLP is 634.74 mGy-cm. Automated exposure control was utilized for the study. A dose lowering technique was utilized adhering to the principles of ALARA. MIP reconstructed images were created and reviewed. CONTRAST: Patient received 120 cc Optiray 320 of IV contrast COMPARISON: Precontrast head CT. FINDINGS: Right internal carotid artery: No acute findings. Intracranial segment is patent with no significant stenosis. No aneurysm. Right anterior cerebral artery: Unremarkable. No occlusion or significant stenosis. No aneurysm. Right middle cerebral artery: Unremarkable. No occlusion or significant stenosis. No aneurysm. Right posterior cerebral artery: There is a normal anatomic variant of origin of the right posterior cerebral artery from the anterior circulation and a hypoplastic right P1 segment. No occlusion or significant stenosis. No aneurysm. Right vertebral artery: Unremarkable as visualized. Left internal carotid artery: No acute findings. Intracranial segment is patent with no significant stenosis. No aneurysm. Left anterior cerebral artery: Unremarkable. No occlusion or significant stenosis. No aneurysm. Left middle cerebral artery: Unremarkable. No occlusion or significant stenosis. No aneurysm. Left posterior cerebral artery: Unremarkable. No occlusion or significant stenosis. No aneurysm. Left vertebral artery: Unremarkable as visualized. Basilar artery: Unremarkable. No occlusion or significant stenosis. No aneurysm. IMPRESSION: No acute findings in the arteries of the head/brain. Communications: Call Doctor Stroke Electronically signed by: Aidan Valenzuela MD 05/04/24 22:43 PM Neck CTA 05/04/24 22:18 CR Exam(s): CTA NECK With Contrast IV Amt: 120 cc opti 320 EXAM: CT Angiography Neck With Intravenous Contrast CLINICAL HISTORY: Reason for exam: stroke. TECHNIQUE: Routine carotid CT angiography protocol was performed with intravenous contrast. NASCET criteria using the distal ICAs for comparison were used for evaluation of stenoses. CTDI is 35.5 mGy and DLP is 634.74 mGy-cm. Automated exposure control was utilized for the study. A dose lowering technique was utilized adhering to the principles of ALARA. MIP reconstructed images were created and reviewed. CONTRAST: Patient received 120 cc Optiray 320 of IV contrast COMPARISON: None. FINDINGS: VASCULATURE: Right common carotid artery: Unremarkable. No occlusion or significant stenosis. No dissection. Right internal carotid artery: Small amount of calcified plaque in the proximal right internal carotid artery with 15% stenosis. No dissection. Right external carotid artery: Unremarkable. No occlusion. Right vertebral artery: Unremarkable. No occlusion or significant stenosis. No dissection. Left common carotid artery: Unremarkable. No occlusion or significant stenosis. No dissection. Left internal carotid artery: Small amount of calcified plaque in the proximal left internal carotid artery with 10% stenosis. No dissection. Left external carotid artery: Unremarkable. No occlusion. Left vertebral artery: Unremarkable. No occlusion or significant stenosis. No dissection. Aorta: The aortic arch is mildly calcified but nondilated. There is no aneurysm or dissection. NECK: Bones/joints: Moderate to severe multilevel degenerative disc disease and facet arthrosis throughout the cervical spine. No acute fracture or traumatic subluxation is seen. Soft tissues: Unremarkable. Lung apices: Clear. CAROTID STENOSIS REFERENCE USING NASCET CRITERIA: % ICA stenosis = (1 - narrowest ICA diameter/diameter of distal cervical ICA) x 100. Mild - <50% stenosis. Moderate - 50-69% stenosis. Severe - 70-94% stenosis. Near occlusion - 95-99% stenosis. Occluded - 100% stenosis. IMPRESSION: No acute findings in the arteries of the neck. Communications: Call Doctor Stroke Electronically signed by: Aidan Valenzuela MD 05/04/24 22:50 PM Code Status & VTE Plan VTE Prophylaxis Plan VTE Prophylaxis will be ordered: Yes
[2024-05-05] MEDS: GADOBUTROL 30ML VIAL IV ONE (00:30)
[2024-05-05] MEDS: ACETAMINOPHEN 1,000 MG/100 ML VIAL IV STA (00:55)
[2024-05-05] MEDS: AMPICILLIN/SULBACTAM SOD 3,000 MG/100 ML BAG IV STA (01:04)
--- NOTE | 2024-05-05 01:51 | Magnetic Resonance Report ---
Exam(s): MRI HEAD W/WO Contrast IV Amt: 12cc gadavist EXAM: MR Head Without and With Intravenous Contrast CLINICAL HISTORY: Reason for exam: Headache. TECHNIQUE: Magnetic resonance images of the head/brain without and with intravenous contrast in multiple planes. CONTRAST: Patient received 12cc Gadavist of IV contrast COMPARISON: CT head from May 04, 2024 FINDINGS: Brain: There is mild local mass-effect without significant midline shift. 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 No hemorrhage. No areas of diffusion restriction are seen to indicate acute stroke. Ventricles: Unremarkable. No ventriculomegaly. Bones/joints: Unremarkable. No acute fracture. Sinuses: Unremarkable as visualized. No acute sinusitis. Mastoid air cells: Unremarkable as visualized. No mastoid effusion. Orbits: Unremarkable as visualized. IMPRESSION: 1. No areas of diffusion restriction are seen to indicate acute stroke. 2. 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 Electronically signed by: Aidan Valenzuela MD 05/05/24 01:49 AM
[2024-05-05] MEDS: SODIUM CHLORIDE 0.9% 1,000 ML IV SCH (02:03)
[2024-05-05] MEDS ORDERED: ATROPINE SULFATE 0.1 MG/ML 10ML SYR IV PRN (02:10)
[2024-05-05] MEDS: POTASSIUM CHLORIDE 20 MEQ in LACTATED RINGER'S 1,000 ML IV ONE (02:24)
[2024-05-05] MEDS: MAGNESIUM SULFATE / D5W 1 GM/100 ML BAG IV ONE (02:24)
[2024-05-05] MEDS ORDERED: KETOROLAC TROMETHAMINE 15 MG/ML VIAL IV ONE (02:27)
[2024-05-05 02:51] LABS: Appearance Urine Clear (Clear); Bacteria Urine Automated None Seen (None Seen); Bilirubin Urine Negative (Negative); Blood Urine Negative (Negative); Cast Urine Automated 0-2 /lpf (0-2); Color Urine Yellow; Epithelial Cell Urine Auto 0-2 /hpf (0-2); Glucose Urine UA Negative (Negative); Ketones Urine Trace (Negative); Leukocyte Esterase Urine Negative (Negative); Nitrite Urine Negative (Negative); Protein Urine Trace (Negative); RBC Urine Automated 0-2 /hpf (0-2); Specific Gravity Urine > 1.045 (1.000-1.030); Urobilinogen Urine Negative (Negative); WBC Urine Automated 0-5 /hpf (0-5); pH Urine 5.5 (4.5-7.5)
[2024-05-05 03:00] LABS: Thyroid Stimulating Hormone 2.765 uIu/ml (0.300-4.500)
[2024-05-05] MEDS: ATROPINE SULFATE 0.1 MG/ML 10ML SYR IV STA (03:01)
[2024-05-05] MEDS: POTASSIUM CHLORIDE / WTR 10 MEQ/100 ML PLCT IV SCH (03:14)
--- NOTE | 2024-05-05 04:11 | Communication Note ---
Date of Service: May 05, 2024 Called to see patient due to profound bradycardia. Patient having 5-6 second pauses on telemetry. HR as low as 19 per RN. On my arrival patient awakens to voice. HR 30. Appears to be Mobitz type II on telemetry. Will need to review telemetry to evaluate for period of CHB. I did give 1mg atropine with good response. HR maintaining 70s now. Remains hypertensive to 190s. His breathing is labored at times. This is a significant change from when he was in the emergency department. I recommend stat CTH to evaluate for any bleeding or vasogenic edema. Patient received load of Brilinta. Also recommend Neurosurgery consultation. Can repeat atropine x1. If patient continues to have pauses and profound bradycardia I would also recommend Cardiology.. Primary team would like patient to remain on 2nd floor. I am happy to accept this patient to the ICU. I remain available for additional questions or concerns. Addendum 0530: STAT CTH shows at least vasogenic edema and small hemorrhage on my view with significant midline shift and collapse of ventricle. He remains flaccid on the left side. Has developed nausea with vomiting. I reached out to [facility] Dr. Allen who has accepted the patient to their neuroICU. I gave the patient 10mg Dexamethasone. He has no other recommendations at this time. Given GCS 15 will not intubate now as will simply increase ICP. -HOB up -Goal normothermia -Continue dexamethasone q6h -SBP strictly < 140mmHg, will add nicardipine infusion if needed. Currently SBP 140mmHg -Family has been updated Full consult to follow. Coding Level of Care Code 45283 CRITICAL CARE -73M
[2024-05-05] MEDS ORDERED: ATROPINE SULFATE 0.1 MG/ML 10ML SYR IV STA (04:32)
--- NOTE | 2024-05-05 04:50 | Communication Note ---
Date of Service: May 05, 2024 Patient with increasing lethargy and sinus pauses upon arrival at PCU. Heart rate 20s Second-degree AVB Mobitz type 2 on the monitor as per staff. Patient heart rate and mentation improved after atropine administration. AP Symptomatic bradycardia Rule out brain tumor swelling/bleed as causative factor as per discussion with ICU provider Repeat CT head Pacer pads on ICU transfer if with recurrent episodes. Patient partner updated of developments over the phone.
[2024-05-05] MEDS ORDERED: STAT IV/IM STA (04:56)
[2024-05-05] MEDS ORDERED: DEXAMETHASONE IV ONE (05:11)
[2024-05-05] MEDS ORDERED: DEXTROSE 5% IV ONE (05:11)
[2024-05-05] MEDS: INSULIN ASPART PER UNIT CHARGE SC SCH (05:18)
[2024-05-05] MEDS: LEVOTHYROXINE SODIUM 88 MCG TABLET PO SCH (05:20)
[2024-05-05] MEDS: dexAMETHasone 10 MG in SYRINGE 0 ML IV STA (05:28)
[2024-05-05 05:29] LABS: BUN Creatinine Ratio 11.4 (10-20); Calcium 9.1 mg/dl (8.6-10.3); Creatinine Clr Calc Pharmacy 84.9 ml/min; Magnesium 1.8 mg/dl (1.7-2.4); Phosphorus 2.8 mg/dl (2.5-4.9); Potassium 4.1 mmol/L (3.5-5.1)
--- NOTE | 2024-05-05 05:30 | CT Scan Report ---
Exam(s): CT HEAD Without Contrast EXAM: CT Head Without Intravenous Contrast CLINICAL HISTORY: Reason for exam: ams. TECHNIQUE: Axial computed tomography images of the head/brain without intravenous contrast. CTDI is 37.22 mGy and DLP is 624.41 mGy-cm. Automated exposure control was utilized for the study. A dose lowering technique was utilized adhering to the principles of ALARA. COMPARISON: MRI brain on 05/05/2024. CT head on 05/04/2024. FINDINGS: Brain: Mass again seen in the right frontal region with associated edema. Increased effacement of the cerebral sulci and increased mass effect on the right lateral ventricle compared to prior exams. Approximately 5 mm of leftward midline shift. New tiny focus of hyperdensity within the region of the mass measuring approximately 5 mm, concerning for small focus of hemorrhage. Ventricles and sulci: Normal. No ventriculomegaly or intraventricular hemorrhage. Bones: Normal. No bony lesion or acute fracture. Subcutaneous tissues: Normal. Sinuses: Mild mucosal thickening in the right maxillary sinus. Mastoid air cells: Normal. Orbits: Grossly unremarkable. IMPRESSION: 1. Mass again seen in the right frontal region with associated edema. Small focus of hyperdensity within the region of the mass measuring approximately 5 mm, concerning for small focus of hemorrhage, similar compared to prior MRI. 2. Increased effacement of the cerebral sulci and increased mass effect on the right lateral ventricle compared to prior exams. Approximately 5 mm of leftward midline shift. Electronically signed by: Ramakrishna Anne M.D. 05/05/24 05:29 AM
[2024-05-05] MEDS: SODIUM CHLORIDE 3 % 150 ML IV ONE (05:39)
[2024-05-05 05:45] LABS: Hematocrit (blood only) 33.4 % (42.0-52.0); Hemoglobin 12.4 g/dl (14.0-18.0); Mean Corpuscular Hemoglobin 34.8 pg (25.0-34.0); Mean Corpuscular Hgb Conc 37.1 g/dL (32.0-36.0); Mean Corpuscular Volume 93.8 fL (80.0-100.0); Mean Platelet Volume 14.6 fL (9.4-12.4); Platelet Count 195 K/uL (130-400); RDW Coefficient of Variation 13.6 % (11.5-14.5); RDW Standard Deviation 44.3 fL (36.4-46.3); Red Blood Count 3.56 M/uL (4.70-6.10); White Blood Count 14.73 K/ul (4.8-10.8)
[2024-05-05 05:48] LABS: Basophils # (auto) 0.05 K/uL (0.00-0.20); Basophils % (auto) 0.3 %; Eosinophils # (auto) 0.02 K/uL (0.00-0.50); Eosinophils % (auto) 0.1 %; Immature Granulocytes # (auto) 0.05 K/uL (0.01-0.20); Immature Granulocytes % (auto) 0.3 %; Lymphocytes # (auto) 2.38 K/uL (1.20-3.40); Lymphocytes % (auto) 16.2 %; Monocytes # (auto) 1.34 K/uL (0.11-0.59); Monocytes % (auto) 9.1 %; Neutrophils # (auto) 10.89 K/uL (1.40-6.50); Platelet Estimate Normal (Normal); RBC Morphology Unremarkable
[2024-05-05] MEDS ORDERED: STAT IV Infusion **Titration per Protocol STA (05:53)
[2024-05-05 05:54] VITALS: RESP 29; TEMP 97.6
[2024-05-05] MEDS ORDERED: niCARdipine 25 MG in SODIUM CHLORIDE 0.9% 240 ML IV SCH (06:00)
--- NOTE | 2024-05-05 06:01 | Discharge Summary ---
Date of Service May 05, 2024 Admission HPI Per Admitting Provider History obtained from patient, family, and records. Medical history significant for chronic diastolic heart failure (EF 52%, TTE 2023), CAD status post stenting (2000, 2012, 2018), trace AR, proximal ascending aorta enlargement as per records, hypertension, hyperlipidemia, history PUD, DM2 diet controlled, hypothyroidism, chronic anemia (baseline hemoglobin 12-13), past tobacco abuse. Last [facility] confinement March 2019 for NSTEMI. Cardiac catheterization showed multivessel CAD. Patient transferred to [facility] for evaluation for CABG. Patient given option between PCI angioplasty versus CABG at [facility]. Patient chose PCI angioplasty with stent placement. 1 month history of junky cough symptoms. Patient noted to be coughing with meals/water intake as per partner. No SOB symptoms. Yesterday afternoon, patient noted achy right-sided headache symptoms. Not sure about recent tick bites. Compliant with home medications. Patient brought by family to ER for evaluation last night. Around 22:30 PM (05/04), patient noted by family to have slurred speech and speaking like a drunk person. Left-sided facial droop and left-sided weakness noted. Stroke alert called at the ER. No thrombolytic therapy as per [facility] neurologist recommendations. Aspirin, Brilinta, and Lipitor administered at the ER following specialist recommendations. Patient later noted to be febrile at the ER. Medical History as above Surgical History : Tonsillectomy Family History : Heart disease Personal/Social history : Past tobacco abuse, no EtOH intake, retired [employer] employee Discharge Data Consultations 05/04/24 22:58 ED Decision to Admit Stat 05/05/24 03:31 Consult Cardiology Routine 05/05/24 05:25 Consult Photographic Platemaker Routine 05/05/24 05:41 Burn CD for patient Stat Hospital Course (1) Encephalopathy: Multifactorial: Sepsis possibly from aspiration pneumonia Acute CVA, sudden onset dysarthria and left-sided weakness at the ER, possible aspirin and Plavix failure, chronic diastolic heart failure, patient is euvolemic to dry hx CAD status post stenting hypertension, slight elevated secondary to illness hyperlipidemia on statin Rx history PUD DM2 diet controlled, well-controlled as of recent hemoglobin A1c of 6.4 last year hypothyroidism, euthyroid as of recent outpatient TSH a few months ago chronic anemia, hemoglobin at baseline past tobacco abuse Admit to medical telemetry CS, Unasyn Aspiration precautions, ADMINISTRATIVE OFFICE ASSISTANT crystal Neuroctram Aspirin and Brilinta, MRI brain with and without contrast as per [facility] neurologist recommendations for stroke workup Add TTE to stroke workup Update lipid panel and hemoglobin A1c Permissive hypertension for now Neurology consult contingent on MRI results ISS BG goal 1 10-1 40, carb count coverage past tobacco abuse DVT prophylaxis Lovenox subcu Full code Patient's family requesting updates providers. Ms. Madelyn Peter (fiance), contact #[phone]. Ms. Marie Tyler (daughter), contact #[phone]. Text document was generated using [employer] voice recognition software. It may contain grammatical or spelling errors. Kindly contact undersigned for clarification of any documentation item in question. ADDENDUM 05/05, 2 AM Brain MRI noted 1. No areas of diffusion restriction are seen to indicate acute stroke. 2. 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 Patient with episodic sinus pauses upon arrival at the floor. Remains lethargic as per RN. AP Right frontal lobe tumor Episodic sinus pauses, lowest heart rate 28 as per RN PCU transfer Will request a.m. provider to contact [facility] neurosurgery in a.m. regarding recomm endations for brain tumor workup. Hold antiplatelet Rx except for aspirin for secondary CAD prevention in anticipation of potential biopsy procedure. Continue to hold patient's beta-anastacia Atropine as needed symptomatic bradycardia Cardiology consult in a.m. re: episodic sinus pauses (Preceding documentation as per admitting provider.) 05/05 245 AM Patient with increasing lethargy and sinus pauses upon arrival at PCU. Heart rate 20s Second-degree AVB Mob[place] type 2 on the monitor as per staff. Patient heart rate and mentation improved after atropine administration. AP Symptomatic bradycardia Rule out brain tumor swelling/bleed as causative factor as per discussion with ICU provider Repeat CT head Pacer pads on 430 AM Patient transferred to ICU given recurrent bradycardic episodes. CT head 1. Mass again seen in the right frontal region with associated edema. Small focus of hyperdensity within the region of the mass measuring approximately 5 mm, concerning for small focus of hemorrhage, similar compared to prior MRI. 2. Increased effacement of the cerebral sulci and increased mass effect on the right lateral ventricle compared to prior exams. Approximately 5 mm of leftward midline shift. Dexamethasone 10 mg IV given at the ICU. ICU provider reached out to [facility] Photographic Platemaker (Dr. Allen) who has kindly accepted patient for transfer. Total time to prepare this discharge summary was less than 10 minutes. Text document was generated using [employer] voice recognition software. It may contain grammatical or spelling errors. Kindly contact undersigned for clarification of any documentation item in question.
[2024-05-05] MEDS: RAPID SEQUENCE INDUCTION BAG ONE (06:45)
[2024-05-05 06:55] VITALS: BP 138/77; PULSE 51; O2SAT 96
[2024-05-05 07:17] LABS: Estimated Average Glucose 143 mg/dl; Hemoglobin A1C 6.6 % (4.5-5.6)
[2024-05-05] MEDS ORDERED: AMOXICILLIN/CLAVULANATE 875 MG TAB PO SCH (08:00)
[2024-05-05] MEDS ORDERED: ASPIRIN 81 MG ECTAB PO SCH ×2 (09:00)
[2024-05-05] MEDS ORDERED: TICAGRELOR 90 MG TAB PO SCH (09:00)
[2024-05-05] MEDS ORDERED: CYANOCOBALAMIN (B-12) 500 MCG TABLET PO SCH (09:00)
[2024-05-05] MEDS ORDERED: EZETIMIBE 10 MG TAB PO SCH (09:00)
[2024-05-05] MEDS ORDERED: LOSARTAN POTASSIUM 25 MG TAB PO SCH (09:00)
[2024-05-05] MEDS ORDERED: ENOXAPARIN INJ 40 MG/0.4 ML SYR SQ SCH (09:00)
--- OUTSIDE RECORDS SUMMARY | 2024-05-05 09:57 | External Medical Summary | Summary of Care ---
Author Name Unknown Organization [facility] Address [address] [facility] [facility] [place] [address] Phone [phone] Care Team Providers Care Hydro Operator Name Role Phone Monroe Araiza DO Primary Care Provider [phone] Reason for Visit * Reason Onset Date Comments Medication Refill 02/10/2024 Encounter Details Date Type Department Care Team (Late st Contact Info) Description 02/10/2024 Refill Cardiology, [facility] [address] [place] [id number] Monroe Araiza DO [address] [place] [address] Coronary artery disease involving [place] coronary artery of [place] heart without angina pectoris; Dyslipidemia, goal LDL below 70 Allergies Active Allergy Reactions Criticality Noted Date Comments Lisinopril Cough Medium 04/27/2019 Morphine Neuro complications (Please comment) 04/27/2019 Per pt, he gets confused and combative documented as of this encounter (statuses as of 02/12/2024) Medications Medication Sig Dispensed Refills Start Date End Date Status Aspirin 81 MG Oral Tablet Chewable Take 1 Tablet by mouth in the morning. Active CYANOCOBALAMIN (VITAMIN B-12) 100 MCG Tablet Take 1 Tablet by mouth in the morning. Active Tadalafil 5 MG Oral Tablet (Cialis) Take by mouth 1 Tablet in the morning. 30 Tablet 09/12/2021 Active Vitamin D3 50 MCG (2000 UT) Oral Tablet Take 1 Tablet by mouth in the morning. Active Ezetimibe 10 MG Oral Tablet (Zetia)Indications :Dyslipidemia, goal to be determined,NSTEMI (non-ST elevated myocardial infarction) (HCC),Atherosclero sis of [place] coronary artery of [place] heart with unstable angina pectoris (HCC) Take 1 Tablet by mouth in the morning. 30 Tablet 11 03/27/2023 Active Atorvastatin Calcium 80 MG Oral Tablet (Lipitor)Indicatio ns:Dyslipidemia, goal LDL below 70,Coronary artery disease involving [place] coronary artery of [place] heart without angina pectoris Take 1 Tablet by mouth in the morning. 90 Tablet 3 05/30/2023 Active Clopidogrel Bisulfate 75 MG Oral Tablet (pLAVix)Indication s:Dyslipidemia, goal LDL below 70,Coronary artery disease involving [place] coronary artery of [place] heart without angina pectoris Take 1 Tablet by mouth in the morning. 90 Tablet 3 05/30/2023 Active Metoprolol Succinate ER 50 MG Oral Tablet Extended Release 24 Hour (toPROL XL) Take 1 Tablet by mouth in the morning. 90 Tablet 3 09/26/2023 Active Levothyroxine Sodium 88 MCG Oral Tablet (Levoxyl)Indicatio ns:Hypothyroidism TAKE 1 TABLET BY MOUTH EVERY DAY AT LEAST 30 MIN BEFORE BREAKFAST OR OTHER MEDICATION 90 Tablet 1 10/09/2023 Active Nitroglycerin 0.4 MG Sublingual Tablet Sublingual (Nitrostat)Indicat ions:NSTEMI (non-ST elevated myocardial infarction) (HCC) PLACE 1 TABLET UNDER THE TONGUE EVERY 5 MINUTES NEEDED FOR CHEST PAIN 25 Tablet 3 11/30/2023 Active Praluent 150 MG/ML Subcutaneous Solution Auto-injector (Alirocumab)Indica tions:Dyslipidemia , goal LDL below 70 Inject 150 mg (1 pen) under the skin every 14 days. 6 mL 3 01/28/2024 Active Losartan Potassium 25 MG Oral Tablet (Cozaar)Indication s:Coronary artery disease involving [place] coronary artery of [place] heart without angina pectoris,Dyslipide evert, goal LDL below 70 Take 0.5 Tablets by mouth in the morning. 45 Tablet 3 02/12/2024 Active Losartan Potassium 25 MG Oral Tablet (Cozaar)Indication s:Coronary artery disease involving [place] coronary artery of [place] heart without angina pectoris,Dyslipide evert, goal LDL below 70 Take 0.5 Tablets by mouth in the morning. 45 Tablet 1 08/06/2023 4 Discontinue d(Refill) documented as of this encounter (statuses as of 02/12/2024) Active Problems Problem Noted Date Diagnosed Date Type 2 diabetes mellitus without complication Atherosclerosis of [place] co ronary artery of [place] heart with unstable angina pectoris 05/16/2022 Anterior cervical adenopathy 05/16/2022 ED (erectile dysfunction) of organic origin 02/25 Type 2 diabetes mellitus wit h hemoglobin A1c goal of less than 8.0% 03/12/2022 Lumbar degenerative disc disease 03/12/2021 Acquired hypothyroidism 09/21/2020 HTN, goal below 130/80 09/21/2020 Morbid obesity due to excess calories 09/21/2020 Ischemic cardiomyopathy 09/21/2020 Coronary artery disease invo [place]ving [place] coronary artery of [place] heart without angina pectoris 12/08/2000 [place] (myocardial infarction) 12/08/2000 Dyslipidemia 12/08/2000 documented as of this encounter (statuses as of 02/12/2024) Resolved Problems Problem Noted Date Diagnosed Date Resolved Date Hypertensive heart disease w ith chronic systolic congestive heart failure 04/22/20222021 Prediabetes 03/12/2022 03/12/2022 Body mass index (BMI) of 40. 0 to 44.9 in adult 03/05/2021 09/09/2021 Overview: Per Obesity protocol Chronic systolic heart failure 09/21/2020 09/23/2023 NSTEMI (non-ST elevated myoc ardial infarction) 04/26/2019 09/07/2020 History of peptic ulcer disease 12/08/2000 09/21/2020 Overview: ICD-10 update of inactive term Tobacco use disorder 12/08/2000 021 documented as of this encounter (statuses as of 02/12/2024) Immunizations Name Administration Dates Next Due COVID-19, MRNA-LNP, 23-24, P F, 30 MCG/0.3 mL, 12 YRS AND ABOVE, IM (PFIZER-Comirnaty) 06/04/2023 Pneumococcal Conjugate Vacc, 13 Valent (Prevnar) 04/29/2019(Deferred: Patient Refused) Pneumococcal Conjugate Vacci ne, 20-valent ([id number]) 03/12/2022 Seasonal Influenza Virus Vac cine, Unspecified Formulation 04/15/2017 Seasonal Influenza, Quadriva lent Hd (Fluzone Hd) 04/18/2023,05/03/2022 Seasonal Influenza, Split, I IV3, With Preserve, Inj 04/29/2019 Seasonal Influenza, Trivalen t, Adjuvanted, 65+ yrs 04/29/2019 TDAP, Age 7 and older, IM (Adacel) 05/12/2016 documented as of this encounter Social History Tobacco Use Types Packs/Day Years Used Date Smoking Tobacco: Former Cigarettes Q uit: 04/27/2000 Smokeless Tobacco: Never Alcohol Use Standard Drinks/Week Comments No 0 (1 standard drink = 0.6 oz pur e alcohol) PHQ-2 Answer Date Recorded PHQ Adult Total Score 0 09/22/2020 Hunger Vital Sign Answer Date Recorded Within the past 12 months, y ou worried that your food would run out before you got the money to buy more. Never true 09/22/19 21 Within the past 12 months, t he food you bought just didn't last and you didn't have money to get more. Never true 09/22/2020 Utilities Answer Date Recorded Do you have trouble paying y our heating, water, or electric bill? (Adult - for ages 18 years and over) Not on file 01/13/2024 Is your family able to pay t he heat, water, or electric bill? (Household - for ages 0-17 years) Not on file 01/13/2024 Does your family have access to good internet? (Household - for ages 0-17 years) Not on file 01/13/2024 Social Connections Answer Date Recorded How often do you feel lonely or isolated from those around you? (Adult - for ages 18 years and over) Not on file 01/13/2024 Sex and Gender Information Value Date Recorded Sex Assigned at Not on file Gender Identity Not on file Sexual Orientation Not on file Job Start Date Occupation Industry Not on file Not on file Not on file documented as of this encounter Functional Status Functional Status Response Date of Assess ment Are you deaf or do you have serious difficulty h earing? No 04/26/2019 Are you blind or do you have serious difficulty seeing, even when wearing glasses? No 04/26/2019 Do you have serious difficul ty walking or climbing stairs? (5 years old or older) No 04/26/2019 Do you have difficulty dress ing or bathing? (5 years old or older) No 04/26/2019 Because of a physical, menta l, or emotional condition, do you have difficulty doing errands alone such as visiting a doctor s office or shopping? (15 years old or older) No 04/26/20 19 Cognitive Status Response Date of Assessm ent Because of a physical, menta l, or emotional condition, do you have serious difficulty concentrating, remembering, or making decisions? (5 years old or older) No 04/26/2019 documented as of this encounter Miscellaneous Notes * Telephone Encounter - Monroe Araiza DO - 02/12/2024 7:34 AM EDTSigned Prescriptions: Disp Refills Losartan Potassium 25 MG Oral Tablet (Coza*45 Tab*3 Sig: Take 0.5 Tablets by mouth in the morning. Authorizing Provider: MONROE ARAIZA * Telephone Encounter - Keyanna Alex CMA - 02/11/2024 10:59 AM EDTPending Prescriptions: Disp Refills Losartan Potassium 25 MG Oral Tablet (Coza*45 Tab*3 Sig: Take 0.5 Tablets by mouth in the morning. * Telephone Encounter - Keyanna Alex CMA - 02/11/2024 10:58 AM EDT Did you pend patient's preferred pharmacy and medication before forwarding?yes [id number] [address] [facility] Pending Prescriptions: Disp Refills Losartan Potassium 25 MG Oral Tablet (Coz*45 Tab*3 Sig: Take 0.5 Tablets by mouth in the morning. Last Visit: 09/26/2023 (in office), Visit date not found (telemedicine) Next Visit: 05/18/2024 If no future appointments scheduled, and last appointment is greater than a year ago, please schedule patient for a follow-up appointment Last date the medication was ordered: 08-06-2023 Is this request for a controlled substance?No Urine Drug Screen:No results found for this or any previous visit. Patient Phone Numbers Labs: Lab Results Component Value Date/Time CREAT 1.1 10/17/2023 09:20 AM CREAT 1.0 06/30/2019 11:29 AM POTASSIUM 5.1 10/17/2023 09:20 AM POTASSIUM 4.7 06/30/2019 11:29 AM TSH 3.44 10/17/2023 09:20 AM TSH 9.43 (H) 04/27/2019 07:31 AM LDLCALC 49 10/17/2023 09:20 AM LDLCALC 97 02/22/2020 09:11 AM LDLCALC 114 06/30/2019 11:29 AM LDLDIRECT 59 09/04/2020 03:01 PM LDLDIRECT NOT APPLICABLE 06/30/2019 11:29 AM ALT 32 10/17/2023 09:20 AM ALT 27 06/30/2019 11:29 AM HGBA1C 6.4 (H) 02/05/2023 07:56 AM HGBA1C 5.9 (H) 04/27/2019 06:05 AM documented in this encounter Plan of Treatment Upcoming Encounters Date Type Department Care Team (Late st Contact Info) Description 05/18/2024 9:00 AM EDT Office Visit Cardiology, [facility] [address] [facility] [place] [address] Savita Munoz CRNP [address] [place] [address] [place] [address] Health Maintenance Due Date Last Done Comments Cologuard 1999 Colonoscopy 1999 Colorectal Cancer Screening 1999 Fecal Occult Blood Test 1999 Sigmoidoscopy 1999 Zoster Vaccines (1 of 2) 2004 Depression Screening 09/22/2021 09/22/2020 Diabetic Foot Exam 03/20/2023 03/20/2022 HbA1c 08/08/2023 02/05/2023, 02/25, 04/27/2019 COVID-19 Vaccine (2 - 2022- season) 2023 06/04/2023 Influenza Vaccine (FLU shot) (#1) 2024 04/18/2023, 05/03/2022, 04/29/2019, Additional history exists Diabetic Eye Exam 04/18/2024 04/18/2023, 03/20/2022 Albumin/Creatinine Ratio 10/16/2024 10/17/2023, 0810/2021 GFR 10/16/2024 10/17/2023, 09/27, 10/22/2021, Additional history exists TSH 10/16/2024 10/17/2023, 01/25, 10/22/2021, Additional history exists DTaP,Tdap,and Td Vaccines (2 - Td or Tdap) 05/12/2026 05/12/2016, 08/28/1994, 08/28/1994 AAA Screening Completed 10/22/2021, 11/0 09/2017, 01/16/2018 Pneumococcal Vaccine: 65+ Years Completed 03/12/2022 HPV (Gardasil) Vaccine Aged Out No lo nger eligible based on patient's age to complete this topic Hepatitis B Vaccine Aged Out No longe r eligible based on patient's age to complete this topic MENINGOCOCCAL (MENACTRA/MENVEO) Aged Out No longer eligible based on patient's age to complete this topic documented as of this encounter Medical Devices Not on filedocumented as of this encounter Visit Diagnoses Diagnosis Coronary artery disease involving [place] coronary artery of [place] heart without angina pectoris Dyslipidemia, goal LDL below 70 Other and unspecified hyperlipidemia documented in this encounter Advance Directives * Full Code (Latest Code Status on File) Date Activated Date Inactivated Comments 04/26/2019 10:03 PM 04/29/2019 7:23 PM This order reflects the patients wishes and were consensually agreed upon. Question Answer Comments Discussion of Advance Directives occurred with: Patient Care Teams Hydro Operator Relationship Specialty Start Date End Date Monroe Araiza DO [address] [place] [address] PCP - General Cardiovascular Medicine 08/26/23 documented as of this encounter
--- OUTSIDE RECORDS SUMMARY | 2024-05-05 09:57 | External Medical Summary | Summary of Care ---
Author Name Unknown Organization [facility] Address [address] [facility] [place] [address] Phone [phone] Care Team Providers Care Puppet Developer Name Role Phone Monroe Jones DO Primary Care Provider [phone] Reason for Visit * Reason Onset Date Comments Health Maintenance 02/24/2024 Encounter Details Date Type Department Care Team (Late st Contact Info) Description 02/24/2024 Telephone Cardiology, [facility] [address] [place] [address] Monroe Jones DO [address] [place] [address] Health Maintenance Allergies Active Allergy Reactions Criticality Noted Date Comments Lisinopril Cough Medium 04/27/2019 Morphine Neuro complications (Please comment) 04/27/2019 Per pt, he gets confused and combative documented as of this encounter (statuses as of 04/02/2024) Medications Medication Sig Dispensed Refills Start Date End Date Status Aspirin 81 MG Oral Tablet Chewable Take 1 Tablet by mouth in the morning. Active CYANOCOBALAMIN (VITAMIN B-12) 100 MCG Tablet Take 1 Tablet by mouth in the morning. Active Tadalafil 5 MG Oral Tablet (Cialis) Take by mouth 1 Tablet in the morning. 30 Tablet 09/12/2021 Active Vitamin D3 50 MCG (1999) Oral Tablet Take 1 Tablet by mouth in the morning. Active Ezetimibe 10 MG Oral Tablet (Zetia)Indications:D yslipidemia, goal to be determined,NSTEMI (non-ST elevated myocardial infarction) (HCC),Atherosclerosi s of [place] coronary artery of [place] heart with unstable angina pectoris (HCC) Take 1 Tablet by mouth in the morning. 30 Tablet 11 03/27/2023 Active Atorvastatin Calcium 80 MG Oral Tablet (Lipitor)Indications :Dyslipidemia, goal LDL below 70,Coronary artery disease involving [place] coronary artery of [place] heart without angina pectoris Take 1 Tablet by mouth in the morning. 90 Tablet 3 05/30/2023 Active Clopidogrel Bisulfate 75 MG Oral Tablet (pLAVix)Indications: Dyslipidemia, goal LDL below 70,Coronary artery disease involving [place] coronary artery of [place] heart without angina pectoris Take 1 Tablet by mouth in the morning. 90 Tablet 3 05/30/2023 Active Metoprolol Succinate ER 50 MG Oral Tablet Extended Release 24 Hour (toPROL XL) Take 1 Tablet by mouth in the morning. 90 Tablet 3 09/26/2023 Active Levothyroxine Sodium 88 MCG Oral Tablet (Levoxyl)Indications :Hypothyroidism TAKE 1 TABLET BY MOUTH EVERY DAY AT LEAST 30 MIN BEFORE BREAKFAST OR OTHER MEDICATION 90 Tablet 1 10/09/2023 Active Nitroglycerin 0.4 MG Sublingual Tablet Sublingual (Nitrostat)Indicatio ns:NSTEMI (non-ST elevated myocardial infarction) ([facility]) PLACE 1 TABLET UNDER THE TONGUE EVERY 5 MINUTES NEEDED FOR CHEST PAIN 25 Tablet 3 11/30/2023 Active Praluent 150 MG/ML Subcutaneous Solution Auto-injector (Alirocumab)Indicati ons:Dyslipidemia, goal LDL below 70 Inject 150 mg (1 pen) under the skin every 14 days. 6 mL 3 01/28/2024 Active Losartan Potassium 25 MG Oral Tablet (Cozaar)Indications: Coronary artery disease involving [place] coronary artery of [place] heart without angina pectoris,Dyslipidemi a, goal LDL below 70 Take 0.5 Tablets by mouth in the morning. 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 05/16/2022 Anterior cervical adenopathy 05/16/2022 ED (erectile dysfunction) of organic origin 02/25 Type 2 diabetes mellitus wit h hemoglobin A1c goal of less than 8.0% 03/12/2022 Lumbar degenerative disc disease 03/12/2021 Acquired hypothyroidism 09/21/2020 HTN, goal below 130/80 09/21/2020 Morbid obesity due to excess calories 09/21/2020 Ischemic cardiomyopathy 09/21/2020 Coronary artery disease invo lving [place] coronary artery of [place] heart without angina pectoris 12/08/2000 Old MD (myocardial infarction) 12/08/2000 Dyslipidemia 12/08/2000 documented as of this encounter (statuses as of 04/02/2024) Resolved Problems Problem Noted Date Diagnosed Date [...] as of this encounter (statuses as of 04/02/2024) Immunizations Name Administration Dates Next Due COVID-19, MRNA-LNP, 23-24, P F, 30 MCG/0.3 mL, 12 YRS AND ABOVE, IM (PFIZER-Comirnaty) 06/04/2023 Pneumococcal Conjugate Vacc, 13 Valent (Prevnar) 04/29/2019(Deferred: Patient Refused) Pneumococcal Conjugate Vacci ne, 20-valent ([id number]) 03/12/2022 Seasonal Influenza Virus Vac cine, Unspecified Formulation 04/15/2017 Seasonal Influenza, Quadriva lent Hd (Fluzone Hd) 04/18/2023,05/03/2022 Seasonal Influenza, Trivalen t, (IIV3), with Preserv, (Fluzone) 04/29/2019 Seasonal Influenza, Trivalen t, Adjuvanted, 65+ YRS, PF, (Fluad) 04/29/2019 TDAP, Age 7 and older, IM [...] encounter Miscellaneous Notes * Telephone Encounter - Izzy Ojeda LPN - 02/24/2024 9:20 AM EDT Care Gaps Comprehensive Care Outreach Last Office/Telemedicine Visit: 09/26/2023 (in office), Visit date not found (telemedicine) Next Office Visit: 05/18/2024 Hemoglobin AIC Results: Lab Results Component Value Date/Time HEMOGLOBIN A1C - [facility] 6.4 (H) 02/05/2023 07:56 AM HEMOGLOBIN A1C - [facility] 6.7 (H) 03/12/2022 11:03 AM HEMOGLOBIN A1C - [facility] 5.9 (H) 04/27/2019 06:05 AM BP Readings from Last 1 Encounters: 09/26/23 98/62 Reviewed Health Maintenance below: Health Maintenance Topic Date Due Colorectal Cancer Screening Never done Zoster Vaccines (1 of 2) Never done Depression Screening 09/22/2021 Diabetic Foot Exam 03/20/2023 HbA1c 08/08/2023 COVID-19 Vaccine (2 - 2022- season) 2023 Influenza Vaccine (FLU shot) (1) 03/28/2024 Diabetic Eye Exam 04/18/2024 Ghp recapture Labs colon Care Gap Outreach Action Taken: Left message and my g documented in this encounter Plan of Treatment Upcoming Encounters Date Type Department Care Team (Late st Contact Info) Description 05/18/2024 9:00 AM EDT Office Visit Cardiology, [facility] [address] [facility] [place] [address] Savita Munoz CRNP [address] [place] [address] Health Maintenance Due Date Last Done Comments Cologuard 1999 Colonoscopy 1999 Colorectal Cancer Screening 1999 Fecal Occult Blood Test 1999 Sigmoidoscopy 1999 Zoster Vaccines (1 of 2) 2004 Adult Wellness Visit 2020 Depression Screening 09/22/2021 09/22/2020 Diabetic Foot Exam 03/20/2023 03/20/2022 HbA1c 08/08/2023 02/05/2023, 02/25, 04/27/2019 COVID-19 Vaccine ( - season) 2024 06/04/2023 Influenza Vaccine (FLU shot) (#1) 2024 04/18/2023, 05/03/2022, 04/29/2019, Additional history exists Diabetic Eye Exam 04/18/2024 04/18/2023, 03/20/2022 Albumin/Creatinine Ratio 10/16/2024 10/17/2023, 02/26 GFR 10/16/2024 10/17/2023, 09/27, 10/22/2021, Additional history exists TSH 10/16/2024 10/17/2023, 01/25, 10/22/2021, Additional history exists DTap/Tdap Vaccines (2 - Td or Tdap) 05/12/2026 [...] Not on filedocumented as of this encounter Advance Directives * Full Code (Latest Code Status on File) Date Activated Date Inactivated Comments 04/26/2019 10:03 PM 04/29/2019 7:23 PM This order reflects the patients wishes and were consensually agreed upon. Question Answer Comments Discussion of Advance Directives occurred with: Patient Care Teams Puppet Developer Relationship Specialty Start Date End Date oMnroe Jones DO [address] [place] [address] PCP - General Cardiovascular Medicine 08/26/23 documented as of this encounter
--- OUTSIDE RECORDS SUMMARY | 2024-05-05 09:57 | External Medical Summary | Summary of Care ---
Author Name Unknown Organization [facility] Address [address] [place] [place] [place] [address] Phone [phone] Care Team Providers Care Receiver Bulk System Name Role Phone NcikMonroe whitten Monty CHAUDHRY Primary Care Provider [phone] Reason for Visit * Reason Onset Date Comments Medication Refill 04/05/2024 Encounter Details Date Type Department Care Team (Late st Contact Info) Description 04/05/2024 Refill Family Practice [facility] [address] [place] [address] David Canales MD [address] [place] [address] Hypothyroidism Allergies Active Allergy Reactions Criticality Noted Date Comments Lisinopril Cough Medium 04/27/2019 Morphine Neuro complications (Please comment) 04/27/2019 Per pt, he gets confused and combative documented as of this encounter (statuses as of 04/07/2024) Medications Medication Sig Dispensed Refills Start Date [...] (non-ST elevated myocardial infarction) (HCC),Atherosclero sis of [place] coronary artery of [place] heart with unstable angina pectoris (HCC) Take 1 Tablet by mouth in the morning. 30 Tablet 11 03/27/2023 Active Atorvastatin Calcium 80 MG Oral Tablet (Lipitor)Indicatio ns:Dyslipidemia, goal LDL below 70,Coronary artery disease involving [place] coronary artery of [place] heart without angina pectoris Take 1 Tablet by mouth in the morning. 90 Tablet 3 05/30/2023 Active Clopidogrel Bisulfate 75 MG Oral Tablet (pLAVix)Indication s:Dyslipidemia, goal LDL below 70,Coronary artery disease involving [place] coronary artery of [place] heart without angina pectoris Take 1 Tablet by mouth in the morning. 90 Tablet 3 05/30/2023 Active Metoprolol Succinate ER 50 MG Oral Tablet Extended Release 24 Hour (toPROL XL) Take 1 Tablet by mouth in the morning. 90 Tablet 3 09/26/2023 Active Nitroglycerin 0.4 MG Sublingual Tablet Sublingual [...] Oral Tablet (Cozaar)Indication s:Coronary artery disease involving [place] coronary artery of [place] heart without angina pectoris,Dyslipide evert, goal LDL below 70 Take 0.5 Tablets by mouth in the morning. 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 05/16/2022 Anterior cervical adenopathy 05/16/2022 ED (erectile dysfunction) of organic origin 02/25 Type 2 diabetes mellitus wit h hemoglobin A1c goal of less than 8.0% 03/12/2022 Lumbar degenerative disc disease 03/12/2021 Acquired hypothyroidism 09/21/2020 HTN, goal below 130/80 09/21/2020 Morbid obesity due to excess calories 09/21/2020 Ischemic cardiomyopathy 09/21/2020 Coronary artery disease invo lving [place] coronary artery of [place] heart without angina pectoris 12/08/2000 Old [place] (myocardial infarction) 12/08/2000 Dyslipidemia 12/08/2000 documented as of this encounter (statuses as of 04/07/2024) Resolved Problems Problem Noted Date Diagnosed Date [...] as of this encounter (statuses as of 04/07/2024) Immunizations Name Administration Dates Next Due COVID-19, MRNA-LNP, 23-24, P F, 30 MCG/0.3 mL, 12 YRS AND ABOVE, IM (PFIZER-Comirnaty) 06/04/2023 Pneumococcal Conjugate Vacc, 13 Valent (Prevnar) 04/29/2019(Deferred: Patient Refused) Pneumococcal Conjugate Vacci ne, 20-valent ([id number]) 03/12/2022 Seasonal Influenza Virus Vac cine, Unspecified [...] encounter Miscellaneous Notes * Telephone Encounter - Gadiel Wasserman [facility] - 04/07/2024 10:12 AM EDTSigned Prescriptions: Disp Refills Levothyroxine Sodium 88 MCG Oral Tablet (L*90 Tab*1 Sig: TAKE 1 TABLET BY MOUTH EVERY DAY AT LEAST 30 MIN BEFORE BREAKFAST OR OTHER MEDICATIONAuthorizing Provider: MONROE JONES User: GADIEL WASSERMAN documented in this encounter Plan of Treatment Upcoming Encounters Date Type Department Care Team (Late st Contact Info) Description 05/18/2024 9:00 AM EDT Office Visit Cardiology, [facility] [address] [facility] [place] [id number] Savita Munoz CRNP [address] [place] [id number] Health Maintenance Due Date Last Done Comments Cologuard 1999 Colonoscopy 1999 Colorectal Cancer Screening 1999 Fecal Occult Blood Test 1999 Sigmoidoscopy 1999 Zoster Vaccines (1 of 2) 2004 Adult Wellness Visit 2020 Depression Screening 09/22/2021 09/22/2020 Diabetic Foot Exam 03/20/2023 03/20/2022 HbA1c 08/08/2023 02/05/2023, 02/25, 04/27/2019 COVID-19 Vaccine ( season) 2024 06/04/2023 Influenza Vaccine (FLU shot) [...] as of this encounter Visit Diagnoses Diagnosis Hypothyroidism Unspecified hypothyroidism documented in this encounter Advance Directives * Full Code (Latest Code Status on File) Date Activated Date Inactivated Comments 04/26/2019 10:03 PM 04/29/2019 7:23 PM This order reflects the patients wishes and were consensually agreed upon. Question Answer Comments Discussion of Advance Directives occurred with: Patient Care Teams Receiver Bulk System Relationship Specialty Start Date End Date Monroe Jones DO [address] [place] [address] PCP - General Cardiovascular Medicine 1/30/24 documented as of this encounter
--- OUTSIDE RECORDS SUMMARY | 2024-05-05 09:57 | External Medical Summary | Summary of Care ---
Author Name Unknown Organization [facility] Address [address] [facility] [place] [address] Phone [phone] Care Team Providers Care Watch Commander Name Role Phone Monroe Jones DO Primary Care Provider [phone] Reason for Visit * Reason Onset Date Comments Health Maintenance 02/24/2024 Encounter Details Date Type Department Care Team (Late st Contact Info) Description 02/24/2024 Telephone Cardiology, [facility] [address] [place] [address] Monroe Jones DO [address] [place] [address] Health Maintenance Allergies Active Allergy Reactions Criticality Noted Date Comments Lisinopril Cough Medium 04/27/2019 Morphine Neuro complications (Please comment) 04/27/2019 Per pt, he gets confused and combative documented as of this encounter (statuses as of 02/24/2024) Medications Medication Sig Dispensed Refills Start Date [...] (non-ST elevated myocardial infarction) (HCC),Atherosclerosi s of [place] coronary artery of [place] heart with unstable angina pectoris (HCC) Take 1 Tablet by mouth in the morning. 30 Tablet 11 03/27/2023 Active Atorvastatin Calcium 80 MG Oral Tablet (Lipitor)Indications :Dyslipidemia, goal LDL below 70,Coronary artery disease involving [place] coronary artery of [place] heart without angina pectoris Take 1 Tablet by mouth in the morning. 90 Tablet 3 05/30/2023 Active Clopidogrel Bisulfate 75 MG Oral Tablet (pLAVix)Indications: Dyslipidemia, goal LDL below 70,Coronary artery disease involving [place] coronary artery of [place] heart without angina pectoris Take 1 Tablet [...] Sublingual (Nitrostat)Indicatio ns:NSTEMI (non-ST elevated myocardial infarction) ([facility]) PLACE 1 TABLET UNDER THE TONGUE EVERY 5 MINUTES NEEDED FOR CHEST PAIN 25 Tablet 3 11/30/2023 Active Praluent 150 MG/ML Subcutaneous Solution Auto-injector (Alirocumab)Indicati ons:Dyslipidemia, goal LDL below 70 Inject 150 mg (1 pen) under the skin every 14 days. 6 mL 3 01/28/2024 Active Losartan Potassium 25 MG Oral Tablet (Cozaar)Indications: Coronary artery disease involving [place] coronary artery of [place] heart without angina pectoris,Dyslipidemi a, goal LDL below 70 Take 0.5 Tablets by mouth in the morning. 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 05/16/2022 Anterior cervical adenopathy 05/16/2022 ED (erectile dysfunction) of organic origin 02/25 Type 2 diabetes mellitus wit h hemoglobin A1c goal of less than 8.0% 03/12/2022 Lumbar degenerative disc disease 03/12/2021 Acquired hypothyroidism 09/21/2020 HTN, goal below 130/80 09/21/2020 Morbid obesity due to excess calories 09/21/2020 Ischemic cardiomyopathy 09/21/2020 Coronary artery disease invo lving [place] coronary artery of [place] heart without angina pectoris 12/08/2000 Old [place] (myocardial infarction) 12/08/2000 Dyslipidemia 12/08/2000 documented as of this encounter (statuses as of 02/24/2024) Resolved Problems Problem Noted Date Diagnosed Date [...] as of this encounter (statuses as of 02/24/2024) Immunizations Name Administration Dates Next Due COVID-19, MRNA-LNP, 23-24, P F, 30 MCG/0.3 mL, 12 YRS AND ABOVE, IM (PFIZER-Comirnaty) 06/04/2023 Pneumococcal Conjugate Vacc, 13 Valent (Prevnar) 04/29/2019(Deferred: Patient Refused) Pneumococcal Conjugate Vacci ne, 20-valent ([id number]) 03/12/2022 Seasonal Influenza Virus Vac cine, Unspecified [...] 03/20/2023 HbA1c 08/08/2023 COVID-19 Vaccine (2 - season) 2023 Influenza Vaccine (FLU shot) (1) 03/28/2024 Diabetic Eye Exam 04/18/2024 Ghp recapture Labs colon Care Gap Outreach Action Taken: Left message and my g documented in this encounter Plan of Treatment Upcoming Encounters Date Type Department Care Team (Late st Contact Info) Description 05/18/2024 9:00 AM EDT Office Visit Cardiology, [facility] [address] [facility] [place] [address] Savita Munoz CRNP [address] [place] [address] [place] [address] Health Maintenance Due Date Last Done Comments Cologuard 1999 Colonoscopy 1999 Colorectal Cancer Screening 1999 Fecal Occult Blood Test 1999 Sigmoidoscopy 1999 Zoster Vaccines (1 of 2) 2004 Depression Screening 09/22/2021 09/22/2020 Diabetic Foot Exam 03/20/2023 03/20/2022 HbA1c 08/08/2023 02/05/2023, 02/25, 04/27/2019 COVID-19 Vaccine ( season) 2023 06/04/2023 Influenza Vaccine (FLU shot) (#1) 2024 04/18/2023, 05/03/2022, 04/29/2019, Additional history exists Diabetic Eye Exam 04/18/2024 04/18/2023, 03/20/2022 Albumin/Creatinine Ratio 10/16/2024 10/17/2023, 02/26 GFR 10/16/2024 10/17/2023, 09/27, 10/22/2021, Additional history exists TSH 10/16/2024 10/17/2023, 01/25, 10/22/2021, Additional history exists DTaP,Tdap,and Td Vaccines (2 - Td or Tdap) 05/12/2026 05/12/2016, 08/28/1994, 08/28/1994 Hepatitis C Screening Completed 04/28/2019 AAA Screening Completed 10/22/2021, 1109/2017, 01/16/2018 Pneumococcal Vaccine: 65+ Years Completed 03/12/2022 [...] Advance Directives occurred with: Patient Care Teams Watch Commander Relationship Specialty Start Date End Date Monroe Jones DO [address] [address] PCP - General Cardiovascular Medicine 08/26/23 documented as of this encounter
--- OUTSIDE RECORDS SUMMARY | 2024-05-05 09:57 | External Medical Summary | Summary of Care ---
Author Name Unknown Organization [facility] Address [address] [facility] [place] [address] Phone [phone] Care Team Providers Care Environmental Remediation Engineer Name Role Phone Monroe Araiza DO Primary Care Provider [phone] Reason for Visit * Reason Comments eRx-Medication Refill Encounter Details Date Type Department Care Team (Late st Contact Info) Description 04/14/2024 Refill Cardiology, [facility] [address] [place] [address] Monroe Araiza DO [address] [place] [address] Dyslipidemia, goal to be determined; NSTEMI (non-ST elevated myocardial infarction) (HCC); Atherosclerosis of [place] coronary artery of [place] heart with unstable angina pectoris (HCC) Allergies Active Allergy Reactions Criticality Noted Date Comments Lisinopril Cough Medium 04/27/2019 Morphine Neuro complications (Please comment) 04/27/2019 Per pt, he gets confused and combative documented as of this encounter (statuses as of 04/14/2024) Medications Medication Sig Dispensed Refills Start Date [...] Tablet by mouth in the morning. Active Atorvastatin Calcium 80 MG Oral Tablet (Lipitor)Indicatio ns:Dyslipidemia, goal LDL below 70,Coronary artery disease involving [place] coronary artery of [place] heart without angina pectoris Take 1 Tablet by mouth in the morning. 90 Tablet 3 05/30/2023 Active Clopidogrel Bisulfate 75 MG Oral Tablet (pLAVix)Indication s:Dyslipidemia, goal LDL below 70,Coronary artery disease involving [place] coronary artery of [place] heart without angina pectoris Take 1 Tablet [...] Oral Tablet (Cozaar)Indication s:Coronary artery disease involving [place] coronary artery of [place] heart without angina pectoris,Dyslipide evert, goal LDL below 70 Take 0.5 Tablets by mouth in the morning. 45 Tablet 3 02/12/2024 Active Levothyroxine Sodium 88 MCG Oral Tablet (Levoxyl)Indicatio ns:Hypothyroidism TAKE 1 TABLET BY MOUTH EVERY DAY AT LEAST 30 MIN BEFORE BREAKFAST OR OTHER MEDICATION 90 Tablet 1 04/07/2024 Active Ezetimibe 10 MG Oral Tablet (Zetia)Indications :Dyslipidemia, goal to be determined,NSTEMI (non-ST elevated myocardial infarction) (HCC),Atherosclero sis of [place] coronary artery of [place] heart with unstable angina pectoris (HCC) TAKE 1 TABLET BY MOUTH EVERY DAY IN THE MORNING 30 Tablet 11 04/14/2024 Active Ezetimibe 10 MG Oral Tablet (Zetia)Indications :Dyslipidemia, goal to be determined,NSTEMI (non-ST elevated myocardial infarction) (HCC),Atherosclero sis of [place] coronary artery of [place] heart with unstable angina pectoris (HCC) Take 1 Tablet by mouth in the morning. 30 Tablet 11 03/27/2023 4 Discontinued documented as of this encounter (statuses as of 04/14/2024) Active Problems Problem Noted Date Diagnosed Date Type 2 diabetes mellitus without complication Atherosclerosis of [place] co ronary artery of [place] heart with unstable angina pectoris 05/16/2022 Anterior cervical adenopathy 05/16/2022 ED (erectile dysfunction) of organic origin 02/25 Type 2 diabetes mellitus wit h hemoglobin A1c goal of less than 8.0% 03/12/2022 Lumbar degenerative disc disease 03/12/2021 Acquired hypothyroidism 09/21/2020 HTN, goal below 130/80 09/21/2020 Morbid obesity due to excess calories 09/21/2020 Ischemic cardiomyopathy 09/21/2020 Coronary artery disease invo lving [place] coronary artery of [place] heart without angina pectoris 12/08/2000 Old [place] (myocardial infarction) 12/08/2000 Dyslipidemia 12/08/2000 documented as of this encounter (statuses as of 04/14/2024) Resolved Problems Problem Noted Date Diagnosed Date [...] as of this encounter (statuses as of 04/14/2024) Immunizations Name Administration Dates Next Due COVID-19, MRNA-LNP, 23-24, P F, 30 MCG/0.3 mL, 12 YRS AND ABOVE, IM (PFIZER-Comirnaty) 06/04/2023 Pneumococcal Conjugate Vacc, 13 Valent (Prevnar) 04/29/2019(Deferred: Patient Refused) Pneumococcal Conjugate Vacci ne, 20-valent ([id number]) 03/12/2022 Seasonal Influenza Virus Vac cine, Unspecified [...] Telephone Encounter - Monroe Araiza DO - 04/14/2024 2:48 PM EDTSigned Prescriptions: Disp Refills Ezetimibe 10 MG Oral Tablet (Zetia) 30 Tab*11 Sig: TAKE 1 TABLET BY MOUTH EVERY DAY IN THE MORNING Authorizing Provider: MONROE ARAIZA * Telephone Encounter - Virginia Arias CMA - 04/14/2024 12:55 PM EDTPending Prescriptions: Disp Refills Ezetimibe 10 MG Oral Tablet [Pharmacy Med *30 Tab*11 Sig: TAKE 1 TABLET BY MOUTH EVERY DAY IN THE MORNING * Telephone Encounter - Virginia Arias CMA - 04/14/2024 12:54 PM EDT Did you pend patient's preferred pharmacy and medication before forwarding?yes Pharmacy: [id number] [id number] [facility] Pending Prescriptions: Disp Refills Ezetimibe 10 MG Oral Tablet (Zetia) [Phar*30 Tab*11 Sig: TAKE 1 TABLET BY MOUTH EVERY DAY IN THE MORNING Last Visit: 09/26/2023 (in office), Visit date not found (telemedicine) Next Visit: 05/18/2024 If no future appointments scheduled, and last appointment is greater than a year ago, please schedule patient for a follow-up appointment Last date the medication was ordered: Is this request for a controlled substance?No Urine Drug Screen:No results found for this or any previous visit. Patient Phone Numbers Labs: Lab Results Component Value Date/Time CREAT 1.1 10/17/2023 09:20 AM CREAT 1.0 06/30/2019 11:29 AM POTASSIUM 5.1 10/17/2023 09:20 AM POTASSIUM 4.7 06/30/2019 11:29 AM TSH 3.44 10/17/2023 09:20 AM TSH 9.43 (H) 04/27/2019 07:31 AM LDL 49 10/17/2023 09:20 AM LDL 114 06/30/2019 11:29 AM LDL NOT APPLICABLE 06/30/2019 11:29 AM LDLCALC 97 02/22/2020 09:11 AM ALT 32 10/17/2023 09:20 AM ALT 27 06/30/2019 11:29 AM HGBA1C 6.4 (H) 02/05/2023 07:56 AM HGBA1C 5.9 (H) 04/27/2019 06:05 AM documented in this encounter Plan of Treatment Upcoming Encounters Date Type Department Care Team (Late st Contact Info) Description 05/18/2024 9:00 AM EDT Office Visit Cardiology, [facility] [address] [facility] [place] [address] Savita Munoz CRNP [address] [place] [address] Health Maintenance Due Date Last Done Comments [...] 04/18/2024 04/18/2023, 03/20/2022 Albumin/Creatinine Ratio 10/16/2024 10/17/2023, 08/2 10/2021 GFR 10/16/2024 10/17/2023, 09/27, 10/22/2021, Additional history [...] as of this encounter Visit Diagnoses Diagnosis Dyslipidemia, goal to be determined Other and unspecified hyperlipidemia NSTEMI (non-ST elevated myocardial infarction) (HCC) Acute myocardial infarction, subendocardial infarction, episode of care unspecified Atherosclerosis of [place] coronary artery of [place] heart with unstable angina pectoris (HCC) documented in this encounter Advance Directives * Full Code (Latest Code Status on File) Date Activated Date Inactivated Comments 04/26/2019 10:03 PM 04/29/2019 7:23 PM This order reflects the patients wishes and were consensually agreed upon. Question Answer Comments Discussion of Advance Directives occurred with: Patient Care Teams Environmental Remediation Engineer Relationship Specialty Start Date End Date Monroe Araiza DO [address] [place] [address] PCP - General Cardiovascular Medicine 08/26/23 documented as of this encounter
--- OUTSIDE RECORDS SUMMARY | 2024-05-05 09:57 | External Medical Summary | Summary of Care ---
Author Name Unknown Organization [facility] Address [address] [facility] [place] [address] Phone [phone] Care Team Providers Care Line Erector Name Role Phone NickMonroe whitten Monty HCAUDHRY Primary Care Provider [phone] Reason for Visit * Reason Onset Date Comments Appointment 09/26/2023 Encounter Details Date Type Department Care Team (Late st Contact Info) Description 09/26/2023 Telephone Cardiology Vj Jauregui [address] [place] [address] Kirsten Jim DO [address] [place] [phone] Appointment Allergies Active Allergy Reactions Criticality Noted Date Comments Lisinopril Cough Medium 04/27/2019 Morphine Neuro complications (Please comment) 04/27/2019 Per pt, he gets confused and combative documented as of this encounter (statuses as of 12/26/2023) Medications Medication Sig Dispensed Refills Start Date [...] (non-ST elevated myocardial infarction) (HCC),Atherosclero sis of [place] coronary artery of [place] heart with unstable angina pectoris (HCC) Take 1 Tablet by mouth in the morning. 30 Tablet 11 03/27/2023 Active Atorvastatin Calcium 80 MG Oral Tablet (Lipitor)Indicatio ns:Dyslipidemia, goal LDL below 70,Coronary artery disease involving [place] coronary artery of [place] heart without angina pectoris Take 1 Tablet by mouth in the morning. 90 Tablet 3 05/30/2023 Active Clopidogrel Bisulfate 75 MG Oral Tablet (pLAVix)Indication s:Dyslipidemia, goal LDL below 70,Coronary artery disease involving [place] coronary artery of [place] heart without angina pectoris Take 1 Tablet by mouth in the morning. 90 Tablet 3 05/30/2023 Active Losartan Potassium 25 MG Oral Tablet (Cozaar)Indication s:Coronary artery disease involving [place] coronary artery of [place] heart without angina pectoris,Dyslipide evert, goal LDL below 70 Take 0.5 Tablets by mouth in the morning. 45 Tablet 1 08/06/2023 Active Praluent 150 MG/ML Subcutaneous Solution Auto-injector (Alirocumab)Indica tions:Dyslipidemia , goal LDL below 70 Inject 150 mg (1 pen) under the skin every 14 days. 2 mL 2 09/12/2023 Active Metoprolol Succinate ER 50 MG Oral Tablet Extended Release 24 Hour (toPROL XL) Take 1 Tablet by mouth in the morning. 90 Tablet 3 09/26/2023 Active Levothyroxine Sodium 88 MCG Oral Tablet (Levoxyl)Indicatio ns:Hypothyroidism TAKE 1 TABLET BY MOUTH EVERY DAY AT LEAST 30 MIN BEFORE BREAKFAST OR OTHER MEDICATION 90 Tablet 2 01/01/2023 4 Discontinued Nitroglycerin 0.4 MG Sublingual Tablet Sublingual (Nitrostat)Indicat ions:NSTEMI (non-ST elevated myocardial infarction) (HCC) Place 1 Tablet under the tongue every 5 minutes as needed for Pain, Chest. 25 Tablet 1 08/07/2023 4 Discontinued documented as of this encounter (statuses as of 12/26/2023) Active Problems Problem Noted Date Diagnosed Date Type 2 diabetes mellitus without complication Atherosclerosis of [place] co ronary artery of [place] heart with unstable angina pectoris 05/16/2022 Anterior cervical adenopathy 05/16/2022 ED (erectile dysfunction) of organic origin 02/25 Type 2 diabetes mellitus wit h hemoglobin A1c goal of less than 8.0% 03/12/2022 Lumbar degenerative disc disease 03/12/2021 Acquired hypothyroidism 09/21/2020 HTN, goal below 130/80 09/21/2020 Morbid obesity due to excess calories 09/21/2020 Ischemic cardiomyopathy 09/21/2020 Coronary artery disease invo lving [place] coronary artery of [place] heart without angina pectoris 12/08/2000 Old [place] (myocardial infarction) 12/08/2000 Dyslipidemia 12/08/2000 documented as of this encounter (statuses as of 12/26/2023) Resolved Problems Problem Noted Date Diagnosed Date [...] as of this encounter (statuses as of 12/26/2023) Immunizations Name Administration Dates Next Due COVID-19, MRNA-LNP, 23-24, P F, 30 MCG/0.3 mL, 12 YRS AND ABOVE, IM (PFIZER-Comirnaty) 06/04/2023 Pneumococcal Conjugate Vacc, 13 Valent (Prevnar) 04/29/2019(Deferred: Patient Refused) Pneumococcal Conjugate Vacci ne, 20-valent ([id number]) 03/12/2022 Seasonal Influenza Virus Vac cine, Unspecified [...] money to get more. Never true 09/22/2020 Sex and Gender Information Value Date Recorded [...] encounter Miscellaneous Notes * Telephone Encounter - Yaakov Westbrook OSA - 09/26/2023 3:55 PM EST Patient is ordered a: NM MYOCARD PERF IMG SPECT MULT STUDIES WITH PHARM INTERV [65401.02] (Order [id number] Please call to schedule, thank you. documented in this encounter Plan of Treatment Upcoming Encounters Date Type Department Care Team (Late st Contact Info) Description 05/18/2024 9:00 AM EDT Office Visit Cardiology, [facility] [address] [facility] [place] [address] Savita Munoz CRNP [address] [place] [address] Health Maintenance Due Date Last Done Comments Cologuard 1999 Colonoscopy 1999 Colorectal Cancer Screening 1999 Fecal Occult Blood Test 1999 Sigmoidoscopy 1999 Zoster Vaccines (1 of 2) 2004 Depression Screening 09/22/2021 09/22/2020 Diabetic Foot Exam 03/20/2023 03/20/2022 HbA1c 08/08/2023 02/05/2023, 02/25, 04/27/2019 COVID-19 Vaccine (2 - season) 2023 06/04/2023 Diabetic Eye Exam 04/18/2024 04/18/2023, 03/20/2022 Albumin/Creatinine Ratio 10/16/2024 10/17/2023, 0810/2021 GFR 10/16/2024 10/17/2023, 09/27, 10/22/2021, Additional history exists TSH 10/16/2024 10/17/2023, 01/25, 10/22/2021, Additional history exists DTaP,Tdap,and Td Vaccines (2 - Td or Tdap) 05/12/2026 05/12/2016, 08/28/1994, 08/28/1994 AAA Screening Completed 10/22/2021 Pneumococcal Vaccine: 65+ Years Completed 03/12/2022 Influenza Vaccine (FLU shot) Completed , 05/03/2022, 04/29/2019, Additional history exists GARDASIL-HPV IMMUNIZATION SERIES Aged Out No longer eligible based on patient's age to complete this topic Hepatitis B Aged Out No longer eligi ble based on patient's age to complete this [...] Advance Directives occurred with: Patient Care Teams Line Erector Relationship Specialty Start Date End Date Monroe Jones DO [address] [place] [address] PCP - General Cardiovascular Medicine 08/26/23 documented as of this encounter
--- OUTSIDE RECORDS SUMMARY | 2024-05-05 09:57 | External Medical Summary | Summary of Care ---
Author Name Unknown Organization [facility] Address [address] [place] [address] Phone [phone] Care Team Providers Care Yarn Hauler Name Role Phone Monroe Jones DO Primary Care Provider [phone] Reason for Visit * Reason Comments Medication Refill Encounter Details Date Type Department Care Team (Late st Contact Info) Description 01/28/2024 Refill Cardiology [facility] [address] [place], [place] [id number] Manoj Hurt, [address] [place] [address] Dyslipidemia, goal LDL below 70 Allergies Active Allergy Reactions Criticality Noted Date Comments Lisinopril Cough Medium 04/27/2019 Morphine Neuro complications (Please comment) 04/27/2019 Per pt, he gets confused and combative documented as of this encounter (statuses as of 01/28/2024) Medications Medication Sig Dispensed Refills Start Date End Date Status Aspirin 81 MG Oral Tablet Chewable Take 1 Tablet by mouth in the morning. Active CYANOCOBALAMIN (VITAMIN B-12) 100 MCG Tablet Take 1 Tablet by mouth in the morning. Active Tadalafil 5 MG Oral Tablet (Cialis) Take by mouth 1 Tablet in the morning. 30 Tablet 09/12/2021 Active Vitamin D3 50 MCG (1999 [place]) Oral Tablet Take 1 Tablet by mouth in the morning. Active Ezetimibe 10 MG Oral Tablet (Zetia)Indications :Dyslipidemia, goal to be determined,NSTEMI (non-ST elevated myocardial infarction) (HCC),Atherosclero sis of [place] coronary artery of [place] heart with unstable angina pectoris (HCC) Take 1 Tablet by mouth in the morning. 30 Tablet 11 03/27/2023 Active Atorvastatin Calcium 80 MG Oral Tablet (Lipitor)Indicatio ns:Dyslipidemia, goal LDL below 70,Coronary artery disease involving [place] coronary artery of [place] heart without angina pectoris Take 1 Tablet by mouth in the morning. 90 Tablet 3 05/30/2023 Active Clopidogrel Bisulfate 75 MG Oral Tablet (pLAVix)Indication s:Dyslipidemia, goal LDL below 70,Coronary artery disease involving [place] coronary artery of [place] heart without angina pectoris Take 1 Tablet by mouth in the morning. 90 Tablet 3 05/30/2023 Active Losartan Potassium 25 MG Oral Tablet (Cozaar)Indication s:Coronary artery disease involving [place] coronary artery of [place] heart without angina pectoris,Dyslipide evert, goal LDL below 70 Take 0.5 Tablets by mouth in the morning. 45 Tablet 1 08/06/2023 Active Metoprolol Succinate ER 50 MG Oral [...] 14 days. 6 mL 3 01/28/2024 Active Praluent 150 MG/ML Subcutaneous Solution Auto-injector (Alirocumab)Indica tions:Dyslipidemia , goal LDL below 70 Inject 150 mg (1 pen) under the skin every 14 days. 2 mL 2 09/12/2023 4 Discontinue d(Refill) documented as of this encounter (statuses as of 01/28/2024) Active Problems Problem Noted Date Diagnosed Date Type 2 diabetes mellitus without complication Atherosclerosis of [place] co ronary artery of [place] heart with unstable angina pectoris 05/16/2022 Anterior cervical adenopathy 05/16/2022 ED (erectile dysfunction) of organic origin 02/25 Type 2 diabetes mellitus wit h hemoglobin A1c goal of less than 8.0% 03/12/2022 Lumbar degenerative disc disease 03/12/2021 Acquired hypothyroidism 09/21/2020 HTN, goal below 130/80 09/21/2020 Morbid obesity due to excess calories 09/21/2020 Ischemic cardiomyopathy 09/21/2020 Coronary artery disease invo [place]ving [place] coronary artery of [place] heart without angina pectoris 12/08/2000 Old [place] (myocardial infarction) 12/08/2000 Dyslipidemia 12/08/2000 documented as of this encounter (statuses as of 01/28/2024) Resolved Problems Problem Noted Date Diagnosed Date [...] as of this encounter (statuses as of 01/28/2024) Immunizations Name Administration Dates Next Due COVID-19, MRNA-LNP, 23-24, P F, 30 MCG/0.3 mL, 12 YRS AND ABOVE, IM (PFIZER-Comirnaty) 06/04/2023 Pneumococcal Conjugate Vacc, 13 Valent (Prevnar) 04/29/2019(Deferred: Patient Refused) Pneumococcal Conjugate Vacci ne, 20-valent ([id number]) 03/12/2022 Seasonal Influenza Virus Vac cine, Unspecified [...] encounter Miscellaneous Notes * Telephone Encounter - Izabel Phipps PA-C - 01/28/2024 5:36 PM EDTSigned Prescriptions: Disp Refills Praluent 150 MG/ML Subcutaneous Solution A*6 mL 3 Sig: Inject 150 mg (1 pen) under the skin every 14 days. Authorizing Provider: IZABEL PHIPPS * Telephone Encounter - Keyanna Alex CMA - 01/28/2024 1:25 PM EDTPending Prescriptions: Disp Refills Praluent 150 MG/ML Subcutaneous Solution A*6 mL 3 Sig: Inject 150 mg (1 pen) under the skin every 14 days. * Telephone Encounter - Keyanna Alex CMA - 01/28/2024 1:25 PM EDT Did you pend patient's preferred pharmacy and medication before forwarding?yes Pharmacy: [facility] Pending Prescriptions: Disp Refills Praluent 150 MG/ML Subcutaneous Solution *6 mL 3 Sig: Inject 150 mg (1 pen) under the skin every 14 days. Last Visit: Visit date not found (in office), 06/10/2023 (telemedicine) Next Visit: Visit date not found If no future appointments scheduled, and last appointment is greater than a year ago, please schedule patient for a follow-up appointment Last date the medication was ordered: 09-12-2023 Is this request for a controlled substance?No [...] 05/18/2024 9:00 AM EDT Office Visit Cardiology, [facility] [address] [facility] [place] [address] Savita Munoz CRNP [address] [place] [address] [place] [phone] Health Maintenance Due Date Last Done Comments Cologuard 1999 Colonoscopy 1999 Colorectal Cancer Screening 1999 Fecal Occult Blood Test 1999 Sigmoidoscopy 1999 Zoster Vaccines (1 of 2) 2004 Depression Screening 09/22/2021 09/22/2020 Diabetic Foot Exam 03/20/2023 03/20/2022 HbA1c 08/08/2023 02/05/2023, 0812/2021, 04/27/2019 COVID-19 Vaccine ( season) 2023 06/04/2023 [...] this encounter Visit Diagnoses Diagnosis Dyslipidemia, goal LDL below 70 Other and unspecified hyperlipidemia documented in this encounter Advance Directives * Full Code (Latest Code Status on File) Date Activated Date Inactivated Comments 04/26/2019 10:03 PM 04/29/2019 7:23 PM This order reflects the patients wishes and were consensually agreed upon. Question Answer Comments Discussion of Advance Directives occurred with: Patient Care Teams Yarn Hauler Relationship Specialty Start Date End Date Monroe Jones DO [address] [place] [address] PCP - General Cardiovascular Medicine 08/26/23 documented as of this encounter
--- OUTSIDE RECORDS SUMMARY | 2024-05-05 09:58 | External Medical Summary | Summary of Care ---
Author Name Unknown Organization [facility] Address [address] [facility] [place] [address] Phone [phone] Care Team Providers Care Employment Supervisor Name Role Phone Monroe Jones DO Primary Care Provider [phone] Reason for Visit * Reason Comments eRx-Medication Refill Encounter Details Date Type Department Care Team (Late st Contact Info) Description 11/28/2023 Refill Cardiology, [facility] [address] [place] [address] Monroe Jones DO [address] [place] [address] NSTEMI (non-ST elevated myocardial infarction) ([facility]) Allergies Active Allergy Reactions Criticality Noted Date Comments Lisinopril Cough Medium 04/27/2019 Morphine Neuro complications (Please comment) 04/27/2019 Per pt, he gets confused and combative documented as of this encounter (statuses as of 11/30/2023) Medications Medication Sig Dispensed Refills Start Date End Date Status Aspirin 81 MG Oral Tablet Chewable Take 1 Tablet by mouth in the morning. 0 Active CYANOCOBALAMIN (VITAMIN B-12) 100 MCG Tablet Take 1 Tablet by mouth in the morning. 0 Active Tadalafil 5 MG Oral Tablet (Cialis) Take by mouth 1 Tablet in the morning. 30 Tablet 0 09/12/2021 Active Vitamin D3 50 MCG (2000 UT) Oral Tablet Take 1 Tablet by mouth in the morning. 0 Active Ezetimibe 10 MG Oral Tablet (Zetia)Indications :Dyslipidemia, goal to be determined,NSTEMI (non-ST elevated myocardial infarction) ([facility]),Atherosclero sis of [place] coronary artery of [place] heart with unstable angina pectoris (HCC) Take 1 Tablet by mouth in the morning. 30 Tablet 11 03/27/2023 Active Atorvastatin Calcium 80 MG Oral Tablet (Lipitor)Indicatio ns:Dyslipidemia, goal LDL below 70,Coronary artery disease involving [place] coronary artery of [place] heart without angina pectoris Take 1 Tablet by mouth in the morning. 90 Tablet 3 05/30/2023 Active Clopidogrel Bisulfate 75 MG Oral Tablet (pLAVix)Indication s:Dyslipidemia, goal LDL below 70,Coronary artery disease involving [place] coronary artery of [place] heart without angina pectoris Take 1 Tablet by mouth in the morning. 90 Tablet 3 05/30/2023 Active Losartan Potassium 25 MG Oral Tablet (Cozaar)Indication s:Coronary artery disease involving [place] coronary artery of [place] heart without angina pectoris,Dyslipide evert, goal LDL [...] CHEST PAIN 25 Tablet 3 11/30/2023 Active Nitroglycerin 0.4 MG Sublingual Tablet Sublingual (Nitrostat)Indicat ions:NSTEMI (non-ST elevated myocardial infarction) (HCC) Place 1 Tablet under the tongue every 5 minutes as needed for Pain, Chest. 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 05/16/2022 Anterior cervical adenopathy 05/16/2022 ED (erectile dysfunction) of organic origin 02/25 Type 2 diabetes mellitus wit h hemoglobin A1c goal of less than 8.0% 03/12/2022 Lumbar degenerative disc disease 03/12/2021 Acquired hypothyroidism 09/21/2020 HTN, goal below 130/80 09/21/2020 Morbid obesity due to excess calories 09/21/2020 Ischemic cardiomyopathy 09/21/2020 Coronary artery disease invo lving [place] coronary artery of [place] heart without angina pectoris 12/08/2000 Old [place] (myocardial infarction) 12/08/2000 Dyslipidemia 12/08/2000 documented as of this encounter (statuses as of 11/30/2023) Resolved Problems Problem Noted Date Diagnosed Date [...] as of this encounter (statuses as of 11/30/2023) Immunizations Name Administration Dates Next Due COVID-19, MRNA-LNP, 23-24, P F, 30 MCG/0.3 mL, 12 YRS AND ABOVE, IM (PFIZER-Comirnaty) 06/04/2023 Pneumococcal Conjugate Vacc, 13 Valent (Prevnar) 04/29/2019(Deferred: Patient Refused) Pneumococcal Conjugate Vacci ne, 20-valent ([id number]) 03/12/2022 Seasonal Influenza Virus Vac cine, Unspecified Formulation 04/15/2017 Seasonal Influenza, Quadriva lent Hd (Fluzone Hd) 04/18/2023,05/03/2022 Seasonal Influenza, Split, I IV3, With Preserve, Inj 04/29/2019 Seasonal Influenza, Trivalen t, Adjuvanted, 65+ yrs 04/29/2019 TDAP (age 11 and older)(Adacel) 05/12/2016 documented as of this encounter Social [...] encounter Miscellaneous Notes * Telephone Encounter - Bijan Yang DO - 11/30/2023 7:16 PM EDT Signed Prescriptions: Disp Refills Nitroglycerin 0.4 MG Sublingual Tablet Sub*25 Tab*3 Sig: PLACE 1 TABLET UNDER THE TONGUE EVERY 5 MINUTES NEEDED FOR CHEST PAIN Authorizing Provider: BIJAN YANG * Telephone Encounter - Keyanna Alex CMA - 11/28/2023 3:28 PM EDTPending Prescriptions: Disp Refills Nitroglycerin 0.4 MG Sublingual Tablet Sub*25 Tab*3 Sig: PLACE 1 TABLET UNDER THE TONGUE EVERY 5 MINUTES NEEDED FOR CHEST PAIN * Telephone Encounter - Keyanna Alex CMA - 11/28/2023 3:28 PM EDT Did you pend patient's preferred pharmacy and medication before forwarding?yes Pharmacy: [id number] [id number] [facility] Pending Prescriptions: Disp Refills Nitroglycerin 0.4 MG Sublingual Tablet Nunez*25 Tab*3 Sig: PLACE 1 TABLET UNDER THE TONGUE EVERY 5 MINUTES NEEDED FOR CHEST PAIN Last Visit: 09/26/2023 (in office), Visit date not found (telemedicine) Next Visit: 05/18/2024 If no future appointments scheduled, and last appointment is greater than a year ago, please schedule patient for a follow-up appointment Last date the medication was ordered: 08-07-2023 Is this request for a controlled substance?No [...] 05/18/2024 9:00 AM EDT Office Visit Cardiology, [facility] [address] [facility] [place] [address] Savita Munoz CRNP [address] [place] [address] [place] [address] Health Maintenance Due Date Last Done Comments Cologuard 1999 Colonoscopy 1999 Colorectal Cancer Screening 1999 Fecal Occult Blood Test 1999 Sigmoidoscopy 1999 Zoster Vaccines (1 of 2) 2004 Depression Screening 09/22/2021 09/22/2020 Diabetic Foot Exam 03/20/2023 03/20/2022 HbA1c 08/08/2023 02/05/2023, 02/25, 04/27/2019 Diabetic Eye Exam 04/18/2024 04/18/2023, 03/20/2022 Albumin/Creatinine Ratio 10/16/2024 10/17/2023, 0810/2021 GFR 10/16/2024 10/17/2023, 09/27, 10/22/2021, Additional history exists TSH 10/16/2024 10/17/2023, 01/25, 10/22/2021, Additional history exists DTaP,Tdap,and Td Vaccines (2 - Td or Tdap) 05/12/2026 05/12/2016, 08/28/1994, 08/28/1994 AAA Screening Completed 10/22/2021 Pneumococcal Vaccine: 65+ Years Completed 03/12/2022 Influenza Vaccine (FLU shot) Completed , 05/03/2022, 04/29/2019, Additional history exists COVID-19 Vaccine Completed 06/04/2023 GARDASIL-HPV IMMUNIZATION SERIES Aged Out No longer [...] as of this encounter Visit Diagnoses Diagnosis NSTEMI (non-ST elevated myocardial infarction) (HCC) Acute myocardial infarction, subendocardial infarction, episode of care unspecified documented in this encounter Advance Directives Latest Code Status on File Code Status Date Activated Date Inactivated Comments Full Code 04/26/2019 10:03 PM 04/29/2019 7:23 PM This order reflects the patients wishes and were consensually agreed upon. Question Answer Comments Discussion of Advance Directives occurred with: Patient Care Teams Employment Supervisor Relationship Specialty Start Date End Date Monroe Jones DO [address] [place] [address] PCP - General Cardiovascular Medicine 08/26/23 documented as of this encounter
--- OUTSIDE RECORDS SUMMARY | 2024-05-05 09:58 | External Medical Summary | Summary of Care ---
Author Name Unknown Organization [facility] Address [address] [facility] [place] [address] Phone [phone] Care Team Providers Care Firer Watertender Name Role Phone Monroe Jones DO Primary Care Provider [phone] Reason for Visit * Reason Onset Date Comments Precert Approved 11/21/2023 PRALUENT 150 MG /ML PEN Encounter Details Date Type Department Care Team (Late st Contact Info) Description 11/21/2023 Telephone Cardiology, [facility] [address] [place] [id number] Manoj Hurt DO [address] [place] [address] Precert Approved (PRALUENT 150 MG/ML PEN) Allergies Active Allergy Reactions Criticality Noted Date Comments Lisinopril Cough Medium 04/27/2019 Morphine Neuro complications (Please comment) 04/27/2019 Per pt, he gets confused and combative documented as of this encounter (statuses as of 11/28/2023) Medications Medication Sig Dispensed Refills Start Date [...] 0 09/12/2021 Active Vitamin D3 50 MCG (1999 UT) Oral Tablet Take 1 Tablet by mouth in the morning. 0 Active Ezetimibe 10 MG Oral Tablet (Zetia)Indications:D yslipidemia, goal to be determined,NSTEMI (non-ST elevated myocardial infarction) (HCC),Atherosclerosi s of [place] coronary artery of [place] heart with unstable angina pectoris (HCC) Take 1 Tablet by mouth in the morning. 30 Tablet 11 03/27/2023 Active Atorvastatin Calcium 80 MG Oral Tablet (Lipitor)Indications :Dyslipidemia, goal LDL below 70,Coronary artery disease involving [place] coronary artery of [place] heart without angina pectoris Take 1 Tablet by mouth in the morning. 90 Tablet 3 05/30/2023 Active Clopidogrel Bisulfate 75 MG Oral Tablet (pLAVix)Indications: Dyslipidemia, goal LDL below 70,Coronary artery disease involving [place] coronary artery of [place] heart without angina pectoris Take 1 Tablet by mouth in the morning. 90 Tablet 3 05/30/2023 Active Losartan Potassium 25 MG Oral Tablet (Cozaar)Indications: Coronary artery disease involving [place] coronary artery of [place] heart without angina pectoris,Dyslipidemi a, goal LDL below 70 Take 0.5 Tablets by mouth in the morning. 45 Tablet 1 08/06/2023 Active Nitroglycerin 0.4 MG Sublingual Tablet Sublingual (Nitrostat)Indicatio ns:NSTEMI (non-ST elevated myocardial infarction) (HCC) Place 1 Tablet under the tongue every 5 minutes as needed for Pain, Chest. 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 05/16/2022 Anterior cervical adenopathy 05/16/2022 ED (erectile dysfunction) of organic origin 08/1 12/2021 Type 2 diabetes mellitus wit h hemoglobin A1c goal of less than 8.0% 03/12/2022 Lumbar degenerative disc disease 03/12/2021 Acquired hypothyroidism 09/21/2020 HTN, goal below 130/80 09/21/2020 Morbid obesity due to excess calories 09/21/2020 Ischemic cardiomyopathy 09/21/2020 Coronary artery disease invo lving [place] coronary artery of [place] heart without angina pectoris 12/08/2000 Old [place] (myocardial infarction) 12/08/2000 Dyslipidemia 12/08/2000 documented as of this encounter (statuses as of 11/28/2023) Resolved Problems Problem Noted Date Diagnosed Date [...] as of this encounter (statuses as of 11/28/2023) Immunizations Name Administration Dates Next Due COVID-19, MRNA-LNP, 23-24, P F, 30 MCG/0.3 mL, 12 YRS AND ABOVE, IM (PFIZER-Comirnaty) 06/04/2023 Pneumococcal Conjugate Vacc, 13 Valent (Prevnar) 04/29/2019(Deferred: Patient Refused) Pneumococcal Conjugate Vacci ne, 20-valent ([id number]) 03/12/2022 Seasonal Influenza Virus Vac cine, Unspecified [...] encounter Miscellaneous Notes * Telephone Encounter - Margarita Resendez OSA - 11/25/2023 10:03 AM EDT [facility] Authorization Submission Submission Information: Medication: PRALUENT 150 MG/ML PEN [facility] Authorization #/[place]: [id number] Margarita Resendez Medication Medical Resident [facility] 11/25/23,10:02 AM * Telephone Encounter - Nancy Serrano CPhT - 11/21/2023 9:07 AM EDT New or re-auth: re-auth Patient Tom Alejandre needs a prior authorization for a medication through their [facility] Clari insurance. Medication: Praluent Formulation: soaj Dosage: 150mg ID: [id number] BIN:[id number] PCN:[id number] Target ship date is 11/25. Thank you very much, Nancy Serrano CPhT Spinning Room Worker [facility] 11/21/2023,9:11 AM documented in this encounter Plan of Treatment Upcoming Encounters Date Type Department Care Team (Late st Contact Info) Description 05/18/2024 9:00 AM EDT Office Visit Cardiology, [facility] [address] [facility] [place] [address] Savita Munoz CRNP [address] [place] [address] [place] [phone] Health Maintenance Due Date Last Done Comments [...] filedocumented as of this encounter Advance Directives Latest Code Status on File Code Status Date Activated Date Inactivated Comments Full Code 04/26/2019 10:03 PM 04/29/2019 7:23 PM This order reflects the patients wishes and were consensually agreed upon. Question Answer Comments Discussion of Advance Directives occurred with: Patient Care Teams Firer Watertender Relationship Specialty Start Date End Date Monroe Jones DO [address] [place] [address] PCP - General Cardiovascular Medicine 08/26/23 documented as of this encounter
--- OUTSIDE RECORDS SUMMARY | 2024-05-05 09:58 | External Medical Summary | Summary of Care ---
Author Name Unknown Organization [facility] Address [address] [place] [address] Phone [phone] Care Team Providers Care Tow Picker Name Role Phone RomeoanabellaMonroe whitten Monty CHAUDHRY Primary Care Provider [phone] Encounter Details Date Type Department Care Team (Late st Contact Info) Description 12/23/2023 Orders Only Outcomes Research Department [address], [place] [id number] Chantelle Smith CHRA MyCode Research Other*[id number] Allergies Active Allergy Reactions Criticality Noted Date Comments Lisinopril Cough Medium 04/27/2019 Morphine Neuro complications (Please comment) 04/27/2019 Per pt, he gets confused and combative documented as of this encounter (statuses as of 12/23/2023) Medications Medication Sig Dispensed Refills Start Date [...] (non-ST elevated myocardial infarction) (HCC),Atherosclerosi s of [place] coronary artery 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 (HCC) Take 1 Tablet by mouth in the morning. 30 Tablet 11 03/27/2023 Active Atorvastatin Calcium 80 MG Oral Tablet (Lipitor)Indications :Dyslipidemia, goal LDL below 70,Coronary artery disease involving [place] coronary artery of [place] heart without angina pectoris Take 1 Tablet by mouth in the morning. 90 Tablet 3 05/30/2023 Active Clopidogrel Bisulfate 75 MG Oral Tablet (pLAVix)Indications: Dyslipidemia, goal LDL below 70,Coronary artery disease involving [place] coronary artery of [place] heart without angina pectoris Take 1 Tablet by mouth in the morning. 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 artery 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 05/16/2022 Anterior cervical adenopathy 05/16/2022 ED (erectile dysfunction) of organic origin 02/25 Type 2 diabetes mellitus wit h hemoglobin A1c goal of less than 8.0% 03/12/2022 Lumbar degenerative disc disease 03/12/2021 Acquired hypothyroidism 09/21/2020 HTN, goal below 130/80 09/21/2020 Morbid obesity due to excess calories 09/21/2020 Ischemic cardiomyopathy 09/21/2020 Coronary artery disease invo lving [place] coronary artery of [place] heart without angina pectoris 12/08/2000 Old [place] (myocardial infarction) 12/08/2000 Dyslipidemia 12/08/2000 documented as of this encounter (statuses as of 12/23/2023) Resolved Problems Problem Noted Date Diagnosed Date [...] as of this encounter (statuses as of 12/23/2023) Immunizations Name Administration Dates Next Due COVID-19, MRNA-LNP, 23-24, P F, 30 MCG/0.3 mL, 12 YRS AND ABOVE, IM (PFIZER-Comirnaty) 06/04/2023 Pneumococcal Conjugate Vacc, 13 Valent (Prevnar) 04/29/2019(Deferred: Patient Refused) Pneumococcal Conjugate Vacci ne, 20-valent ([id number]) 03/12/2022 Seasonal Influenza Virus Vac cine, Unspecified [...] No 04/26/2019 documented as of this encounter Plan of Treatment Upcoming Encounters Date Type Department Care Team (Late st Contact Info) Description 05/18/2024 9:00 AM EDT Office Visit Cardiology, [facility] [address] [facility] [place] [address] Savita Munoz CRNP [address] [place] [address] [place] [address] Scheduled Orders Name Type Priority Associated Diagnoses Orde r Schedule MYCODE SUBSEQUENT ADULT Lab Routine MyCode Research Other*[id number] Every 6 Months for 2 Occurrences starting 12/23/2023 until 01/11/2025 Health Maintenance Due Date Last Done Comments Marianela 1999 Colonoscopy 1999 Colorectal Cancer Screening 1999 [...] as of this encounter Visit Diagnoses Diagnosis MyCode Research Other*[id number] documented in this encounter Advance Directives * Full Code (Latest Code Status on File) Date Activated Date Inactivated Comments 04/26/2019 10:03 PM 04/29/2019 7:23 PM This order reflects the patients wishes and were consensually agreed upon. Question Answer Comments Discussion of Advance Directives occurred with: Patient Care Teams Tow Picker Relationship Specialty Start Date End Date Kopinski, Monroe O, DO [address] [place] [address] PCP - General Cardiovascular Medicine 08/26/23 documented as of this encounter
--- OUTSIDE RECORDS SUMMARY | 2024-05-05 09:58 | External Medical Summary | Summary of Care ---
Author Name Unknown Organization [facility] Address [address] [place] [address] Phone [phone] Care Team Providers Care Motor Carrier Inspector Name Role Phone NickMonroe whitten Monty CHAUDHRY Primary Care Provider [phone] Encounter Details Date Type Department Care Team (Late st Contact Info) Description 11/18/2023 Orders Only Unspecified Department Kirsten Jim DO [address] [facility] [place] [address] Allergies Active Allergy Reactions Criticality Noted Date Comments Lisinopril Cough Medium 04/27/2019 Morphine Neuro complications (Please comment) 04/27/2019 Per pt, he gets confused and combative documented as of this encounter (statuses as of 11/19/2023) Medications Medication Sig Dispensed Refills Start Date [...] (non-ST elevated myocardial infarction) (HCC),Atherosclerosi s of [place] coronary artery of [place] heart with unstable angina pectoris (HCC) Take 1 Tablet by mouth in the morning. 30 Tablet 11 03/27/2023 Active Atorvastatin Calcium 80 MG Oral Tablet (Lipitor)Indications :Dyslipidemia, goal LDL below 70,Coronary artery disease involving [place] coronary artery of [place] heart without angina pectoris Take 1 Tablet by mouth in the morning. 90 Tablet 3 05/30/2023 Active Clopidogrel Bisulfate 75 MG Oral Tablet (pLAVix)Indications: Dyslipidemia, goal LDL below 70,Coronary artery disease involving [place] coronary artery of [place] heart without angina pectoris Take 1 Tablet by mouth in the morning. 90 Tablet 3 05/30/2023 Active Losartan Potassium 25 MG Oral Tablet (Cozaar)Indications: Coronary artery disease involving [place] coronary artery of [place] heart without angina pectoris,Dyslipidemi a, goal LDL [...] as of this encounter (statuses as of 11/19/2023) Active Problems Problem Noted Date Diagnosed Date Type 2 diabetes mellitus without complication Atherosclerosis of [place] co ronary artery of [place] heart with unstable angina pectoris 05/16/2022 Anterior cervical adenopathy 05/16/2022 ED (erectile dysfunction) of organic origin 02/25 Type 2 diabetes mellitus wit h hemoglobin A1c goal of less than 8.0% 03/12/2022 Lumbar degenerative disc disease 03/12/2021 Acquired hypothyroidism 09/21/2020 HTN, goal below 130/80 09/21/2020 Morbid obesity due to excess calories 09/21/2020 Ischemic cardiomyopathy 09/21/2020 Coronary artery disease invo lving [place] coronary artery of [place] heart without angina pectoris 12/08/2000 Old [place] (myocardial infarction) 12/08/2000 Dyslipidemia 12/08/2000 documented as of this encounter (statuses as of 11/19/2023) Resolved Problems Problem Noted Date Diagnosed Date [...] as of this encounter (statuses as of 11/19/2023) Immunizations Name Administration Dates Next Due COVID-19, MRNA-LNP, 23-24, P F, 30 MCG/0.3 mL, 12 YRS AND ABOVE, IM (PFIZER-Comirnat) 06/04/2023 Pneumococcal Conjugate Vacc, 13 Valent (Prevnar) 04/29/2019(Deferred: Patient Refused) Pneumococcal Conjugate Vacci ne, 20-valent ([id number]) 03/12/2022 Seasonal Influenza Virus Vac cine, Unspecified [...] 05/18/2024 9:00 AM EDT Office Visit Cardiology, [facility] [address] [facility] [place] [id number] Savita Munoz CRNP [address] [place] [address] [place] [address] Health Maintenance Due Date [...] Not on filedocumented as of this encounter Procedures Procedure Name Priority Date/Time Associated Diagnosis Comments NM MYOCARDIAL PERFUSION IMAGING SPECT MULTIPLE STUDIES WITH PHARMACOLOGIC INTERVENTION Routine 11/18/2023 7:52 AM EDT documented in this encounter Results * NM MYOCARDIAL PERFUSION IMAGING SPECT MULTIPLE STUDIES WITH PHARMACOLOGIC INTERVENTION (11/18/2023 7:52 AM EDT) LEFT VENTRICULAR EJECTION FRACTION 55 % [facility] 11/18/2023 7:52 AM EDT Kirsten Villalobosali DO RAD NUCLEAR MED [facility] documented in this encounter Advance Directives Latest Code Status on File Code Status Date Activated Date Inactivated Comments Full Code 04/26/2019 10:03 PM 04/29/2019 7:23 PM This order reflects the patients wishes and were consensually agreed upon. Question Answer Comments Discussion of Advance Directives occurred with: Patient Care Teams Motor Carrier Inspector Relationship Specialty Start Date End Date Monroe Jones DO [address] [place] [address] PCP - General Cardiovascular Medicine 08/26/23 documented as of this encounter
--- NOTE | 2024-05-05 15:15 | Electrocardiogram Report ---
Test Reason : Blood Pressure : */* mmHG Vent. Rate : 75 BPM Atrial Rate : 75 BPM P-R Int : 194 ms QRS Dur : 112 ms QT Int : 440 ms P-R-T Axes : 74 35 -21 degrees QTcB Int : 491 ms Sinus rhythm with occasional Premature ventricular complexes Inferior infarct , age undetermined Abnormal ECG When compared with ECG of 04-May-2024 20:35, (unconfirmed) Premature ventricular complexes are now Present Inferior infarct is now Present Nonspecific T wave abnormality, worse in Inferior leads QT has lengthened Confirmed by Escobar Prather ([id number]) on 05/05/2024 3:14:47 PM Referred By: REFERRED SELF Confirmed By: Escobar Prather
--- NOTE | 2024-05-05 15:16 | Electrocardiogram Report ---
Test Reason : Blood Pressure : */* mmHG Vent. Rate : 64 BPM Atrial Rate : 64 BPM P-R Int : 192 ms QRS Dur : 104 ms QT Int : 414 ms P-R-T Axes : 79 48 16 degrees QTcB Int : 427 ms Normal sinus rhythm Poor R wave progression, consider anterior NM vs. lead placement vs. LVH Abnormal ECG When compared with ECG of 24-Nov-2021 20:06, Criteria for Inferior infarct are no longer Present Confirmed by Escobar Prather ([id number]) on 05/05/2024 3:15:58 PM Referred By: REFERRED SELF Confirmed By: Escobar Prather
--- NOTE | 2024-05-05 15:16 | Electrocardiogram Report ---
Test Reason : Blood Pressure : */* mmHG Vent. Rate : 63 BPM Atrial Rate : 63 BPM P-R Int : 182 ms QRS Dur : 112 ms QT Int : 476 ms P-R-T Axes : 86 43 48 degrees QTcB Int : 487 ms Normal sinus rhythm Possible Inferior infarct (cited on or before 24-Nov-2021) Abnormal ECG When compared with ECG of 05-May-2024 03:00, (unconfirmed) Premature ventricular complexes are no longer Present Confirmed by Escobar Prather ([id number]) on 05/05/2024 3:15:31 PM Referred By: REFERRED SELF Confirmed By: Escobar Prather
[2024-05-05] MEDS ORDERED: ATORVASTATIN 40 MG TAB PO SCH (21:00)
--- OUTSIDE RECORDS SUMMARY | 2024-05-06 04:26 | External Medical Summary | Summary of Care ---
Author Name Unknown Organization [facility] Address [address] [place] [address] Phone [phone] Care Team Providers Care Marine Painter Name Role Phone Monroe Jones DO Primary Care Provider [phone] Encounter Details Date Type Department Care Team (Late st Contact Info) Description 05/05/2024 Orders Only Unspecified Department Saad Romo MD [address] [place] [address] Allergies Active Allergy Reactions Criticality Noted Date Comments Lisinopril Cough Medium 04/27/2019 Morphine Neuro complications (Please comment) 04/27/2019 Per pt, he gets confused and combative documented as of this encounter (statuses as of 05/05/2024) Medications Medication Sig Dispensed Refills Start Date End Date Status Aspirin 81 MG Oral Tablet Chewable Take 1 Tablet by mouth in the morning. Suspended CYANOCOBALAMIN (VITAMIN B-12) 100 MCG Tablet Take 1 Tablet by mouth in the morning. Suspended Tadalafil 5 MG Oral Tablet (Cialis) Take by mouth 1 Tablet in the morning. 30 Tablet 09/12/2021 Suspended Additional Information Vitamin D3 50 MCG (1999 UT) Oral Tablet Take 1 Tablet by mouth in the morning. Suspended Atorvastatin Calcium 80 MG Oral Tablet (Lipitor)Indicatio ns:Dyslipidemia, goal LDL below 70,Coronary artery disease involving [place] coronary artery of [place] heart without angina pectoris Take 1 Tablet by mouth in the morning. 90 Tablet 3 05/30/2023 Suspended Additional Information Clopidogrel Bisulfate 75 MG Oral Tablet (pLAVix)Indication s:Dyslipidemia, goal LDL below 70,Coronary artery disease involving [place] coronary artery of [place] heart without angina pectoris Take 1 Tablet by mouth in the morning. 90 Tablet 3 05/30/2023 Suspended Additional Information Metoprolol Succinate ER 50 MG Oral Tablet Extended Release 24 Hour (toPROL XL) Take 1 Tablet by mouth in the morning. 90 Tablet 3 09/26/2023 Suspended Additional Information Nitroglycerin 0.4 MG Sublingual Tablet Sublingual (Nitrostat)Indicat ions:NSTEMI (non-ST elevated myocardial infarction) (HCC) PLACE 1 TABLET UNDER THE TONGUE EVERY 5 MINUTES NEEDED FOR CHEST PAIN 25 Tablet 3 11/30/2023 Suspended Additional Information Praluent 150 MG/ML Subcutaneous Solution Auto-injector (Alirocumab)Indica tions:Dyslipidemia , goal LDL below 70 Inject 150 mg (1 pen) under the skin every 14 days. 6 mL 3 01/28/2024 Suspended Additional Information Losartan Potassium 25 MG Oral Tablet (Cozaar)Indication s:Coronary artery disease involving [place] coronary artery of [place] heart without angina pectoris,Dyslipide evert, goal LDL below 70 Take 0.5 Tablets by mouth in the morning. 45 Tablet 3 02/12/2024 Suspended Additional Information Levothyroxine Sodium 88 MCG Oral Tablet (Levoxyl)Indicatio ns:Hypothyroidism TAKE 1 TABLET BY MOUTH EVERY DAY AT LEAST 30 MIN BEFORE BREAKFAST OR OTHER MEDICATION 90 Tablet 1 04/07/2024 Suspended Additional Information Ezetimibe 10 MG Oral Tablet (Zetia)Indications :Dyslipidemia, goal to be determined,NSTEMI (non-ST elevated myocardial infarction) (HCC),Atherosclero sis of [place] coronary artery of [place] heart with unstable angina pectoris (HCC) TAKE 1 TABLET BY MOUTH EVERY DAY IN THE MORNING 30 Tablet 11 04/14/2024 Suspended Additional Information documented as of this encounter (statuses as of 05/05/2024) Active Problems Problem Noted Date Diagnosed Date Type 2 diabetes mellitus without complication 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 05/16/2022 Anterior cervical adenopathy 05/16/2022 ED (erectile dysfunction) of organic origin 02/25 Type 2 diabetes mellitus wit h hemoglobin A1c goal of less than 8.0% 03/12/2022 Lumbar degenerative disc disease 03/12/2021 Acquired hypothyroidism 09/21/2020 HTN, goal below 130/80 09/21/2020 Morbid obesity due to excess calories 09/21/2020 Ischemic cardiomyopathy 09/21/2020 Coronary artery disease invo lving [place] coronary artery of [place] heart without angina pectoris 12/08/2000 Old [place] (myocardial infarction) 12/08/2000 Dyslipidemia 12/08/2000 documented as of this encounter (statuses as of 05/05/2024) Resolved Problems Problem Noted Date Diagnosed Date [...] as of this encounter (statuses as of 05/05/2024) Immunizations Name Administration Dates Next Due COVID-19, MRNA-LNP, 23-24, P F, 30 MCG/0.3 mL, 12 YRS AND ABOVE, IM (PFIZER-Comirnaty) 06/04/2023 Pneumococcal Conjugate Vacc, 13 Valent (Prevnar) 04/29/2019(Deferred: Patient Refused) Pneumococcal Conjugate Vacci ne, 20-valent ([id number]) 03/12/2022 Seasonal Influenza Vac., MDV , IM, 0.5 mL (Fluzone) 04/29/2019 Seasonal Influenza Virus Vac cine, Unspecified Formulation 04/15/2017 Seasonal Influenza, Quadriva lent Hd (Fluzone Hd) 04/18/2023,05/03/2022 Seasonal Influenza, Trivalen t, Adjuvanted, 65+ YRS, [...] 05/18/2024 9:00 AM EDT Office Visit Cardiology, [facility] [address] [place] [address] Savita Munoz CRNP [address] [place] [address] Health Maintenance Due Date [...] 03/20/2022 Albumin/Creatinine Ratio 10/16/2024 10/17/2023, 08/2 10/2021 TSH 10/16/2024 10/17/2023, 01/25, 10/22/2021, Additional history exists GFR 05/05/2025 05/05/2024, 09/26, 10/25/2022, Additional history exists DTap/Tdap Vaccines (2 - [...] Procedure Name Priority Date/Time Associated Diagnosis Comments RADIOLOGY EXAM - MRI (IMAGES ONLY, NO REPORT) Routine 05/05/2024 12:10 AM EDT documented in this encounter Results * RADIOLOGY EXAM - MRI (IMAGES ONLY, NO REPORT) (05/05/2024 12:10 AM EDT) 05/05/2024 12:0 7 AM EDT Narrative Scheduling, Silent - 05/05/2024 8:58 AM EDT This is an imaging study not interpreted or resulted by a [facility]. Saad Romo MD RAD MRI-MRA documented in this encounter Advance Directives * Full Code (Latest Code Status on File) Date Activated Date Inactivated Comments 05/05/2024 7:26 AM This order ref lects the patients wishes and were consensually agreed upon. Question Answer Comments Discussion of Advance Direct leana occurred with: Not Discussed due to patient's condition * Full Code Date Activated Date Inactivated Comments 04/26/2019 10:03 PM 04/29/2019 7:23 PM This order reflects the patients wishes and were consensually agreed upon. Question Answer Comments Discussion of Advance Directives occurred with: Patient Care Teams Marine Painter Relationship Specialty Start Date End Date Monroe Jones DO [address] [place] [id number] PCP - General Cardiovascular Medicine 08/26/23 documented as of this encounter
--- OUTSIDE RECORDS SUMMARY | 2024-05-06 04:26 | External Medical Summary | Summary of Care ---
Author Name Unknown Organization [facility] Address [address] [place] [address] Phone [phone] Care Team Providers Care Counter Roller Name Role Phone Nickfish Monroe Monty CHAUDHRY Primary Care Provider [phone] Reason for Visit * Reason Comments Retrieval [facility] to [facility] with glioblastoma, bradycardia Encounter Details Date Type Department Care Team (Late st Contact Info) Description 05/05/2024 5:45 AM EDT Documentation [facility] [place] [address] [place] [address] 2, [facility] [address], [place] [id number] Glioblastoma (HCC)* Allergies Active Allergy Reactions Criticality Noted Date [...] Suspended Additional Information Vitamin D3 50 MCG (1999) Oral Tablet Take 1 Tablet by mouth in the morning. Suspended Atorvastatin Calcium 80 MG Oral Tablet (Lipitor)Indicatio ns:Dyslipidemia, goal LDL below 70,Coronary artery disease involving [place] coronary artery of [place] heart without angina pectoris Take 1 Tablet by mouth in the morning. 90 Tablet 3 05/30/2023 Suspended Additional Information Clopidogrel Bisulfate 75 MG Oral Tablet (pLAVix)Indication s:Dyslipidemia, goal LDL below 70,Coronary artery disease involving [place] coronary artery of [place] heart without angina pectoris Take 1 Tablet [...] Oral Tablet (Cozaar)Indication s:Coronary artery disease involving [place] coronary artery of [place] heart without angina pectoris,Dyslipide evert, goal LDL [...] (non-ST elevated myocardial infarction) (HCC),Atherosclero sis of [place] coronary artery 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 (HCC) TAKE 1 TABLET BY MOUTH EVERY DAY IN THE MORNING 30 Tablet 11 04/14/2024 Suspended Additional Information documented as of this encounter (statuses as of 05/05/2024) Active Problems Problem Noted Date Diagnosed Date Type 2 diabetes mellitus without complication Atherosclerosis of [place] co ronary artery 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 05/16/2022 Anterior cervical adenopathy 05/16/2022 ED (erectile dysfunction) of organic origin 02/25 Type 2 diabetes mellitus wit h hemoglobin A1c goal of less than 8.0% 03/12/2022 Lumbar degenerative disc disease 03/12/2021 Acquired hypothyroidism 09/21/2020 HTN, goal below 130/80 09/21/2020 Morbid obesity due to excess calories 09/21/2020 Ischemic cardiomyopathy 09/21/2020 Coronary artery disease invo lving [place] coronary artery of [place] heart without angina pectoris 12/08/2000 Old [place] (myocardial infarction) 12/08/2000 Dyslipidemia 12/08/2000 documented as [...] Patient Refused) Pneumococcal Conjugate Vacci ne, 20-valent ([id number]) 03/12/2022 Seasonal Influenza Vac., MDV , IM, [...] No 04/26/2019 documented as of this encounter Progress Notes * Jose Hoffmann RN - 05/05/2024 8:14 AM EDT MEDICARE AMBULANCE INFORMATION SHEET Patient Admitted as an Inpatient: yes Certifying Physician/Ordering Service:[facility] ED Physician - Delvin Neal D.O. [facility] [address] [place] [address] Point of Website Designer (zip code required): [facility] - [address]; [place] [address] Destination (Specify Name/Address): [facility] - [address]; [place] [address] Patient transported to nearest facility (capable of mgmt for Pt's condition): YES Total number of Loaded Miles: 65.7 miles Mode of Transport: Air Completed by: Jose Hoffmann RN documented in this encounter Plan of Treatment Upcoming Encounters Date Type Department Care Team (Late st Contact Info) Description 05/18/2024 9:00 AM EDT Office Visit Cardiology, [facility] [address] [place] [address] Savita Munoz CRNP [address] [place] [address] Health Maintenance Due Date [...] Albumin/Creatinine Ratio 10/16/2024 10/17/2023, 02/26 GFR 10/16/2024 05/05/2024, 09/26, 10/25/2022, Additional history exists TSH 10/16/2024 10/17/2023, 01/25, 10/22/2021, Additional history exists DTap/Tdap Vaccines (2 - Td or Tdap) 05/12/2026 05/12/2016, 08/28/1994, 08/28/1994 AAA Screening Completed 10/22/2021, 1109/2017, 01/16/2018 Pneumococcal [...] as of this encounter Visit Diagnoses Diagnosis Glioblastoma (HCC)- Primary Malignant neoplasm of brain, unspecified site documented in this encounter Advance Directives * [...] Advance Directives occurred with: Patient Care Teams Counter Roller Relationship Specialty Start Date End Date Monroe Jones DO [address] [place] [address] PCP - General Cardiovascular Medicine 08/26/23 documented as of this encounter
--- OUTSIDE RECORDS SUMMARY | 2024-05-06 04:26 | External Medical Summary | Summary of Care ---
Author Name Unknown Organization [facility] Address [address] [place] [address] Phone [phone] Care Team Providers Care Communication Lecturer Name Role Phone Monore Jones DO Primary Care Provider [phone] Encounter Details Date Type Department Care Team (Late st Contact Info) Description 05/05/2024 Orders Only Unspecified Department Saad Romo MD [address] [place] [address] Allergies Active Allergy Reactions Criticality [...] goal LDL below 70,Coronary artery disease involving [place] coronary artery of [place] heart without angina pectoris Take 1 Tablet by mouth in the morning. 90 Tablet 3 05/30/2023 Suspended Additional Information Clopidogrel Bisulfate 75 MG Oral Tablet (pLAVix)Indication s:Dyslipidemia, goal LDL below 70,Coronary artery disease involving [place] coronary artery of [place] heart without angina pectoris Take 1 Tablet [...] Oral Tablet (Cozaar)Indication s:Coronary artery disease involving [place] coronary artery of [place] heart without angina pectoris,Dyslipide evert, goal LDL [...] (non-ST elevated myocardial infarction) (HCC),Atherosclero sis of [place] coronary artery of [place] heart with unstable angina pectoris (HCC) TAKE 1 TABLET BY MOUTH EVERY DAY IN THE MORNING 30 Tablet 11 04/14/2024 Suspended Additional Information documented as of this encounter (statuses as of 05/05/2024) Active Problems Problem Noted Date Diagnosed Date Type 2 diabetes mellitus without complication 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 05/16/2022 Anterior cervical adenopathy 05/16/2022 ED (erectile dysfunction) of organic origin 02/25 Type 2 diabetes mellitus wit h hemoglobin A1c goal of less than 8.0% 03/12/2022 Lumbar degenerative disc disease 03/12/2021 Acquired hypothyroidism 09/21/2020 HTN, goal below 130/80 09/21/2020 Morbid obesity due to excess calories 09/21/2020 Ischemic cardiomyopathy 09/21/2020 Coronary artery disease invo lving [place] coronary artery of [place] heart without angina pectoris 12/08/2000 Old [place] (myocardial infarction) 12/08/2000 Dyslipidemia 12/08/2000 documented as [...] Patient Refused) Pneumococcal Conjugate Vacci ne, 20-valent ([id number]) 03/12/2022 Seasonal Influenza Vac., MDV , IM, [...] 05/18/2024 9:00 AM EDT Office Visit Cardiology, [facility] [address] [place] [address] Savita Munoz CRNP [address] [place] [address] Health Maintenance Due Date [...] MRI (IMAGES ONLY, NO REPORT) Routine 05/05/2024 12:15 AM EDT documented in this encounter Results * RADIOLOGY EXAM - MRI (IMAGES ONLY, NO REPORT) (05/05/2024 12:15 AM EDT) 05/05/2024 12:0 7 AM EDT Narrative Scheduling, Silent - 05/05/2024 8:59 AM EDT This is an imaging study not interpreted or resulted by a [facility] or [facility] radi[facility]. Saad Romo MD RAD [...] Advance Directives occurred with: Patient Care Teams Communication Lecturer Relationship Specialty Start Date End Date Monroe Jones DO [address] [place] [address] PCP - General Cardiovascular Medicine 08/26/23 documented as of this encounter
--- OUTSIDE RECORDS SUMMARY | 2024-05-06 04:27 | External Medical Summary ---
Author Name Unknown Address Unknown Organization K01:LABORATORY [place] [address] [facility] [address] Laboratory Report Ordering Provider Test Date Status CHARLIE MUNGUIA 05/05/2024 07:45:00 Final Observation Date Value Abnormality Reference (Units ) Status WBC, Total 05/05/2024 07:45:00 16.44 Above high normal 4.00-10.80 (K/uL) Final RBC 05/05/2024 07:45:00 3.64 4.50-5.25 (M/uL) Final Hemoglobin 05/05/2024 07:45:00 13.0 Below low normal 14.0-16.8 (g/dL) Final HCT 05/05/2024 07:45:00 35.2 Below low normal 40.0-48.4 (%) Final MCV 05/05/2024 07:45:00 96.7 82.0-99.5 (fL) Final MCH 05/05/2024 07:45:00 35.7 27.0-34.0 (pg) Final MCHC 05/05/2024 07:45:00 36.9 32.0-36.0 (g/dL) Final RDW 05/05/2024 07:45:00 13.6 11.5-15.5 (%) Final Platelets 05/05/2024 07:45:00 230 140-400 (K/uL) Final MPV 05/05/2024 07:45:00 13.2 6.6-11.1 (fL) Final Nucleated erythrocytes/100 leukocytes [Ratio] in Blood by Automated count 05/05/2024 07:45:00 0 <=0 (/100 WBCs) Final Performing Location LABORATORY [facility] [place] - [facility] [place] [address] [id number]
--- OUTSIDE RECORDS SUMMARY | 2024-05-06 04:27 | External Medical Summary ---
Author Name Unknown Address Unknown Organization [id number]:LABORATORY [facility] - [address] [facility] [place] [address] Laboratory Report Ordering Provider Test Date Status CHARLIE MUNGUIA 05/05/2024 07:45:00 Final Observation Date Value Abnormality Reference (Units ) Status SYNC LEUKOCYTES IN BLOOD BY AUTOMATED COUNT 05/05/2024 07:45:00 16.44 Above high normal 4.00-10.80 (K/uL) Final Segs 05/05/2024 07:45:00 82.4 Above high normal 40.0-75.0 (%) Final Lymphs % 05/05/2024 07:45:00 10.8 Below low normal 18.0-42.0 (%) Final Monos 05/05/2024 07:45:00 5.5 1.0-11.0 (%) Final Eosinophils 05/05/2024 07:45:00 0.1 0.0-6.0 (%) Final Basos 05/05/2024 07:45:00 0.3 0.0-2.0 (%) Final Immature Granulocyte, Percent 05/05/2024 07:45:00 0.9 0.0-2.0 (%) Final Absolute Segs 05/05/2024 07:45:00 13.56 Above high normal 1.80-7.70 (K/uL) Final Lymphs, absolute 05/05/2024 07:45:00 1.78 1.00-4.80 (K/ul) Final Monos, Abs 05/05/2024 07:45:00 0.90 0.00-1.10 (K/uL) Final Eos, Abs 05/05/2024 07:45:00 0.01 0.00-0.70 (K/uL) Final Basos, Abs 05/05/2024 07:45:00 0.05 0.00-0.20 (K/uL) Final Immature Granulocytes, Number 05/05/2024 07:45:00 0.14 0.00-0.20 (K/uL) Final Performing Location LABORATORY [facility] - [address] [facility] [address]
--- OUTSIDE RECORDS SUMMARY | 2024-05-06 04:27 | External Medical Summary ---
Author Name Unknown Address Unknown Organization K01:LABORATORY [facility] - [address] [place] [address] Laboratory Report Ordering Provider Test Date Status CHARLIE MUNGUIA 05/05/2024 07:45:00 Final Anticoagulation may affect t esting. Refer to [employer] Test Catalog for a list of effects. Observation Date Value Abnormality Reference (Units ) Status aPTT panel - Platelet poor plasma 05/05/2024 07:45:00 21 21-38 (seconds) Final Results rechecked. Performing Location LABORATORY [facility] - [facility] [address] [place] [address]
--- OUTSIDE RECORDS SUMMARY | 2024-05-06 04:27 | External Medical Summary ---
Author Name Unknown Address Unknown Organization K01:[facility] [facility] [address] [place] [address] Laboratory Report Ordering Provider Test Date Status CHARLIE MUNGUIA 05/05/2024 07:45:00 Final Observation Date Value Abnormality Reference (Units ) Status BUN 05/05/2024 07:45:00 11 6-20 (mg/dL) Final Creatinine 05/05/2024 07:45:00 1.0 0.6-1.2 (mg/dL) Final Glomerular filtration rate/1.73 sq M.predicted [Volume Rate/Area] in Serum, Plasma or Blood by Creatinine-based formula (CKD-EPI) 05/05/2024 07:45:00 83 >=60 (mL/min) Final eGFR is calculated based on the CKD-EPI 2020 equation. Sodium 05/05/2024 07:45:00 138 135-146 (m mol/L) Final Potassium 05/05/2024 07:45:00 4.0 3.5-5.1 (m mol/L) Final Cl 05/05/2024 07:45:00 102 98-107 (mm ol/L) Final CO2 05/05/2024 07:45:00 22 22-32 (mmo l/L) Final Anion gap 05/05/2024 07:45:00 14 7-15 (mmol /L) Final Glucose 05/05/2024 07:45:00 200 Above high normal 70 -120 (mg/dL) Final Calcium 05/05/2024 07:45:00 8.9 8.4-10.2 ( mg/dL) Final Performing Location [facility] [place] [address] [place] [address]
--- OUTSIDE RECORDS SUMMARY | 2024-05-06 04:27 | External Medical Summary ---
Author Name Unknown Address Unknown Organization K01:LABORATORY [facility] - [address] [place] [address] Laboratory Report Ordering Provider Test Date Status VELIA MICHAUD 05/05/2024 07:45:00 Final Observation Date Value Abnormality Reference (Units ) Status LDH 05/05/2024 07:45:00 236 <=250 (U/L ) Final Performing Location LABORATORY [facility] - [address] [facility] [address] [place] [address]
--- OUTSIDE RECORDS SUMMARY | 2024-05-06 04:27 | External Medical Summary ---
Author Name Unknown Address Unknown Organization K01:[facility] [place] [address] [place] [address] Laboratory Report Ordering Provider Test Date Status VELIA MICHAUD 05/05/2024 07:45:00 Final Observation Date Value Abnormality Reference (Units ) Status CK 05/05/2024 07:45:00 245 39-308 (U/ L) Final Performing Location LABORATORY [facility] - [address] [place] [address]
--- OUTSIDE RECORDS SUMMARY | 2024-05-06 04:27 | External Medical Summary ---
Author Name Unknown Address Unknown Organization K01:LABORATORY [facility] - [address] [address] Laboratory Report Ordering Provider Test Date Status VELIA MICHAUD 05/05/2024 11:01:56 Final Observation Date Value Abnormality Reference (Units ) Status Color of Urine by Auto 05/05/2024 11:01:56 Yellow Colorless, Light Yellow, Yellow, Dark Yellow Final Clarity, Urine 05/05/2024 11:01:56 Clear Clear Final Glucose [Mass/volume] in Urine by Automated test strip 05/05/2024 11:01:56 100 Abnormal Negative (mg/dL) Final Bilirubin.total [Presence] in Urine by Automated test strip 05/05/2024 11:01:56 Negative Negative Final Ketones [Mass/volume] in Urine by Automated test strip 05/05/2024 11:01:56 Trace Abnormal Negative (mg/dL) Final Specific gravity, Urine 05/05/2024 11:01:56 >1.050 Above high normal 1.003-1.030 Final Hemoglobin [Presence] in Urine by Automated test strip 05/05/2024 11:01:56 Large Abnormal Negative Final pH, Urine 05/05/2024 11:01:56 5.5 5.0-7.5 (Units) Final Protein [Mass/volume] in Urine by Automated test strip 05/05/2024 11:01:56 30 Abnormal Negative (mg/dL) Final Urobilinogen [Mass/volume] in Urine by Automated test strip 05/05/2024 11:01:56 Normal Normal (mg/dL) Final Nitrite [Presence] in Urine by Automated test strip 05/05/2024 11:01:56 Negative Negative Final Leukocyte esterase [Presence] in Urine by Automated test strip 05/05/2024 11:01:56 Negative Negative Final RBC, Urine 05/05/2024 11:01:56 30-49 Abnormal 0-2 (/HPF) Final WBC, Urine 05/05/2024 11:01:56 20-29 Abnormal 0-2 (/HPF) Final Bacteria [#/area] in Urine sediment by Microscopy high power field 05/05/2024 11:01:56 51-100 Abnormal 0-25 (/HPF) Final Performing Location LABORATORY [facility] - [facility] [address] [facility] [address]
--- OUTSIDE RECORDS SUMMARY | 2024-05-06 04:27 | External Medical Summary ---
Author Name Unknown Address Unknown Organization K01:LABORATORY [facility] - [address] [place] [address] Laboratory Report Ordering Provider Test Date Status CHARLIE MUNGUIA 05/05/2024 07:45:00 Final Observation Date Value Abnormality Reference (Units ) Status ABO 05/05/2024 07:45:00 A Final RH 05/05/2024 07:45:00 Positive Final RED BLOOD CELL ANTIBODY SCREEN 05/05/2024 07:45:00 Negative Final SPECIMEN EXPIRATION DATE 05/05/2024 07:45:00 05/08/2024 23:59 Final Performing Location LABORATORY [facility] - [address] [place] [address]
--- OUTSIDE RECORDS SUMMARY | 2024-05-06 04:27 | External Medical Summary ---
Author Name Unknown Address Unknown Organization K01:LABORATORY [facility] [place] - [address] [place] [address] Laboratory Report Ordering Provider Test Date Status EDITA RUIZ 05/05/2024 07:45:00 Final Observation Date Value Abnormality Reference (Units ) Status Triglyceride 05/05/2024 07:45:00 57 <=174 ( mg/dL) Final Triglyceride Reference Range s (mg/dL):
<150 Acceptable
150-174 Borderline high
175-499 High
>=500 Very high Performing Location LABORATORY [facility] - [address] [place] [address]
--- OUTSIDE RECORDS SUMMARY | 2024-05-06 04:27 | External Medical Summary ---
Author Name Unknown Address Unknown Organization [id number]:[facility] [place] - [address] [place] [address] Laboratory Report Ordering Provider Test Date Status NILDACHARLIE 05/05/2024 07:45:00 Final Observation Date Value Abnormality Reference (Units ) Status Lactic Acid 05/05/2024 07:45:00 3.9 Above high normal 0.4-2.0 (mmol/L) Final Performing Location [facility] [place] - [address] [place] [address]
--- OUTSIDE RECORDS SUMMARY | 2024-05-06 04:27 | External Medical Summary ---
Author Name Unknown Address Unknown Organization [id number]:[facility] - [address] [place] [address] Laboratory Report Ordering Provider Test Date Status CHARLIE MUNGUIA 05/05/2024 07:45:00 Final Observation Date Value Abnormality Reference (Units ) Status Magnesium 05/05/2024 07:45:00 1.8 1.5-2.6 (m g/dL) Final Performing Location [facility] - [address] [place] [address]
--- OUTSIDE RECORDS SUMMARY | 2024-05-06 04:27 | External Medical Summary ---
Author Name Unknown Address Unknown Organization [id number]:[facility] - [address] [place] [address] Laboratory Report Ordering Provider Test Date Status CHARLIE MUNGUIA 05/05/2024 07:45:00 Final Observation Date Value Abnormality Reference (Units ) Status Phosphate 05/05/2024 07:45:00 2.2 Below low normal 2.5 -4.8 (mg/dL) Final Performing Location [facility] - [address] [place] [address]
--- OUTSIDE RECORDS SUMMARY | 2024-05-06 04:27 | External Medical Summary ---
Author Name Unknown Address Unknown Organization [id number]:[facility] [place] - [facility] [address] [place] [address] Laboratory Report Ordering Provider Test Date Status CHARLIE MUNGUIA 05/05/2024 07:45:00 Final Warfarin Therapy
INR: 2 .0-3.0 conventional anticoagulation
INR: 2.5- 3.5 high intensity anticoagulation Observation Date Value Abnormality Reference (Units ) Status PT 05/05/2024 07:45:00 14.0 11.6-15.2 (seconds) Final INR 05/05/2024 07:45:00 1.1 0.8-1.2 Final Performing Location [facility] [place] - [facility] [address] [place] [address]
== END 2024-05-05 06:35 | disposition short-term general hospital (02) | DRG 871 ==
LOC: ED 20:19 → 2W 23:21 → 2E 05-05 02:44 → 1E 05-05 05:00